=== PATIENT | male | born 1945 | race Caucasian/White ===

== ENCOUNTER 2018-06-30 14:40 | Inpatient (IN) | payer OTHER ==
[~2018-06-30] VITALS: Ht 172.7 cm; Wt 60.3 kg
[~2018-06-30 14:40] MED LIST: AMLO-147 PO; CLON-379 PO; PANT20TA2 PO
--- NOTE | 2018-06-30 16:13 | ERD ---
ER Documentation Chief Complaint Chief Complaint SOB HPI The patient is of 73-year-old male, presenting with acute dyspnea for the last week, worse today. He also complains of palpitation intermittently for the last month, denies syncope, near syncope, facial pain, neck pain, chest pain, abdominal pain, vomiting, complains of constipation and dysuria. He smokes, denies drinking Past medical history: CAD, hypertension Past surgical history: None ROS All systems reviewed and are negative except as per history of present illness. Medications Home Meds Reported Medications [id number] (Tribenzor) 40-10-25 Mg Tablet, 1 TAB PO DAILY, TAB 06/30/18 Discontinued Reported Medications Clonidine Hcl* (Clonidine Hcl*) 0.1 Mg Tab, 0.1 MG PO BID 03/16/11 Amlodipine Besylate* (Amlodipine Besylate*) 10 Mg Tablet, 10 MG PO DAILY 03/16/11 Pantoprazole* (Protonix*) 20 Mg Tablet.dr, 40 MG PO BID, 0 Refills 03/16/11 Allergies Allergies: Coded Allergies: No Known Drug Allergies (Verified Allergy, Unknown, 06/30/18) PMhx/Soc History of Surgery: No Anesthesia Reaction: No Hx Neurological Disorder: No Hx Respiratory Disorders: No Hx Cardiac Disorders: Yes (HYPERTENSION ) Hx Psychiatric Problems: No Hx Miscellaneous Medical Probl: No Hx Alcohol Use: No Hx Substance Use: No Hx Tobacco Use: No Physical Exam Vitals Vital Signs Date Temp Pulse Resp B/P (MAP) Pulse Ox O2 O2 Flow FiO2 Time Delivery Rate 06/30/18 122 20 131/104 94 Room Air 19:45 (113) 06/30/18 Nasal 18:35 Cannula 06/30/18 115 20 133/95 96 Room Air 17:07 (108) 06/30/18 98.1 61 18 183/101 95 14:46 (128) Physical Exam Const: No acute distress. Head: Atraumatic. Eyes: Normal Conjunctiva. ENT: Normal External Ears, Nose and Mouth. Neck: Full range of motion. No meningismus. Resp: Bibasilar crackle Cardio: Irregularly irregular tachy Abd: Soft, non distended, normal bowel sounds, non tender. Skin: No petechiae or rashes. Back: No midline or flank tenderness. Ext: No cyanosis, or edema. Neur: Awake and alert. No focal deficit Psych: Normal Mood and Affect. Result Diagram: 06/30/18 1639 06/30/18 1639 Results 24 hrs Laboratory Tests Test 06/30/18 16:39 06/30/18 19:20 White Blood Count 6.1 10^3/ul Red Blood Count 5.53 10^6/ul Hemoglobin 17.1 g/dl Hematocrit 51.5 % Mean Corpuscular Volume 93.1 fl Mean Corpuscular Hemoglobin 30.9 pg Mean Corpuscular Hemoglobin Concent 33.2 g/dl Red Cell Distribution Width 15.7 % Platelet Count 102 10^3/UL Mean Platelet Volume 12.4 fl Immature Granulocytes % 0.800 % Neutrophils % 73.3 % Lymphocytes % 17.7 % Monocytes % 7.9 % Eosinophils % 0.0 % Basophils % 0.3 % Nucleated Red Blood Cells % 0.3 /100WBC Immature Granulocytes # 0.050 10^3/ul Neutrophils # 4.5 10^3/ul Lymphocytes # 1.1 10^3/ul Monocytes # 0.5 10^3/ul Eosinophils # 0.0 10^3/ul Basophils # 0.0 10^3/ul Nucleated Red Blood Cells # 0.0 10^3/ul Prothrombin Time 15.2 Sec Prothrombin Time Ratio 1.2 INR International Normalized Ratio 1.19 Activated Partial Thromboplast Time 27.4 Sec D-Dimer 8518.92 ng/ml D-Dimer Comment Sodium Level 143 mmol/L Potassium Level 4.6 mmol/L Chloride Level 104 mmol/L Carbon Dioxide Level 26 mmol/L Anion Gap 13 Blood Urea Nitrogen 52 mg/dl Creatinine 1.32 mg/dl Est Glomerular Filtrat Rate mL/min mL/min Glucose Level 94 mg/dl Calcium Level 9.5 mg/dl Total Bilirubin 0.9 mg/dl Direct Bilirubin 0.00 mg/dl Indirect Bilirubin 0.9 mg/dl Aspartate Amino Transf (AST/SGOT) 138 IU/L Alanine Aminotransferase (ALT/SGPT) 49 IU/L Alkaline Phosphatase 2146 IU/L Troponin I 0.085 ng/ml B-Type Natriuretic Peptide 5670 PG/ML Total Protein 6.7 g/dl Albumin 3.9 g/dl Globulin 2.80 g/dl Albumin/Globulin Ratio 1.39 Thyroid Stimulating Hormone (TSH) 4.070 MIU/L Free Thyroxine Index 1.72 ug/ml Thyroxine (T4) 4.5 ug/dl Triiodothyronine (T3) Uptake 38.2 % Ethyl Alcohol Level < 10.0 mg/dl Urine Opiates Screen NEGATIVE Urine Barbiturates NEGATIVE Urine Amphetamines Screen NEGATIVE Urine Benzodiazepines Screen NEGATIVE Urine Cocaine Screen NEGATIVE Urine Cannabinoids NEGATIVE Current Medications Medications Dose Sig/Percy Start Time Status Last (Trade) Ordered Route PRN Stop Time Admin Dose Reason Admin Diltiazem 25 mg STK-MED 06/30/18 DC HCl ONCE .ROUTE 16:54 (Cardizem Iv) 06/30/18 16:55 Diltiazem 5 mg ONCE ONCE 06/30/18 DC 06/30/18 HCl IV 17:30 17:24 (Cardizem Iv) 06/30/18 17:31 Furosemide 40 mg ONCE ONCE 06/30/18 DC 06/30/18 (Lasix) IV 18:00 18:23 06/30/18 18:08 IV Flush 10 ml STK-MED 06/30/18 DC 06/30/18 (NS 10 ml) ONCE .ROUTE 17:52 18:23 06/30/18 17:53 Sodium 100 ml @ ud STK-MED 06/30/18 DC 06/30/18 Chloride ONCE .ROUTE 17:52 18:23 06/30/18 17:53 Iodixanol 100 ml STK-MED 06/30/18 DC 06/30/18 (Visipaque ONCE .ROUTE 17:52 18:24 Locm) 06/30/18 17:53 Diltiazem 10 mg ONCE ONCE 06/30/18 DC 06/30/18 HCl IV 19:00 18:50 (Cardizem Iv) 06/30/18 19:01 Digoxin 250 mcg ONCE ONCE 06/30/18 DC 06/30/18 (Digoxin) IV 19:00 19:16 06/30/18 19:08 Diltiazem 5 mg ONCE ONCE 06/30/18 DC 06/30/18 HCl IV 20:00 19:50 (Cardizem Iv) 06/30/18 20:01 Digoxin 250 mcg ONCE ONCE 06/30/18 DC 06/30/18 (Digoxin) IV 20:00 20:08 06/30/18 20:01 Diltiazem 30 mg Q6 PO 07/01/18 UNV HCl 00:00 (Cardizem) Metoprolol 5 mg Q6H PRN 06/30/18 UNV Tartrate IV 20:00 (Lopressor) TACHYARDIA Enoxaparin 70 mg Q12 SC 06/30/18 DC Sodium 21:00 (Lovenox) 06/30/18 21:00 Enoxaparin 40 mg DAILY SC 07/01/18 UNV Sodium 09:00 (Lovenox) Sodium 1,000 ml @ [id number] IV 06/30/18 UNV Chloride 75 mls/hr 19:58 IV Flush 3 ml PER 06/30/18 UNV (NS 3 ml) PROTOCOL IV 20:00 Ondansetron 4 mg Q6H PRN 06/30/18 UNV HCl (Zofran IV NAUSEA 20:00 Inj) AND/OR VOMITING 1 tab Q5M PRN 06/30/18 UNV Nitroglycerin SL CHEST 20:00 PAIN (Nitroglyceri n (Sl Tab) 0.4 Mg) 650 mg Q6H PRN 06/30/18 UNV Acetaminophen PO PAIN 20:00 (Tylenol LEVEL 1-3 OR Tab) FEVER Morphine 2 mg Q4H PRN 06/30/18 UNV Sulfate IV PAIN 20:00 (morphine) LEVEL 7-10 Docusate 100 mg Q12H PRN 06/30/18 UNV Sodium PO 20:00 (Colace) CONSTIPATION Magnesium 30 ml DAILY PRN 06/30/18 UNV Hydroxide PO 20:00 (Milk Of Mag) CONSTIPATION Bisacodyl 10 mg DAILY PRN 06/30/18 UNV (Dulcolax ND 20:00 Supp) CONSTIPATION Procedures/[place] [id number] Radiology Main Line: [phone] DIAGNOSTIC IMAGING REPORT Patient: ASHLYN ARAUJO : 1945 Age: 73 Sex: M [id number] DOS: 06/30/18 1734 Ordering MD: KOSTA CHRISTIANSON MD Location: E/R Room/Bed: PROCEDURE: CT brain without contrast CLINICAL INDICATION: Headaches following a fall TECHNIQUE: A CT of the brain was performed utilizing axial sections from the skull base through the vertex without contrast. Sagittal and coronal images were also reformatted. DICOM images are available. One or more of the following dose reduction techniques were used: Automated exposure control, adjustment of the mA and/or kV according to patient size, use of iterative reconstruction technique. The exam CTDIvol = 38.46 mGy and DLP = 634.23 mGy-cm. COMPARISON: None available FINDINGS: No acute intracranial hemorrhage is identified. There is no mass effect or midline shift. No extra-axial fluid collection is seen. The ventricles and sulci are larger in size and configuration for the patient's provided age of 73 years consistent with advanced generalized atrophy. Low attenuation of the subcortical and periventricular white matter is nonspecific but most likely body former jose small vessel ischemic disease. Ramos-white differentiation is preserved with no findings to suggest an acute ischemic infarct. The fourth ventricle is midline and there is no density alteration within the liza or cerebellum. The osseous structures are unremarkable. The mastoid air cells and visualized paranasal sinuses are clear. Atherosclerotic calcification of the cavernous internal carotid arteries is present. Metallic densities adjacent to the right zygoma and right lateral orbit are likely shrapnel from a remote injury RPTAT:HJJR IMPRESSION: 1. Advanced atrophy for the patient's provided age without evidence for acute intracranial abnormality or mass effect. 2. Metallic shrapnel foreign bodies lateral to the right orbit adjacent to the zygoma. 3. Cavernous internal carotid artery atherosclerotic calcification. Physician Skyler Date Time Electronically viewed and signed by Physician Skyler on 06/30/2018 18:18 JR/ CC: KOSTA CHRISTIANSON MD [id number] [place] [id number] Radiology Main Line: [phone] DIAGNOSTIC IMAGING REPORT Patient: ASHLYN ARAUJO : 1945 Age: 73 Sex: M MR #: [id number] DOS: 06/30/18 1627 Ordering MD: KOSTA CHRISTIANSON MD Location: E/R Room/Bed: PROCEDURE: XR Chest. CLINICAL INDICATION: Shortness of breath TECHNIQUE: Portable single view of the chest COMPARISON: None. FINDINGS: Enlarged cardiopericardial silhouette. Atherosclerotic change of the aorta. Slight prominence of the paratracheal soft tissues which may be due to ectatic vasculature. No definite acute infiltrate, pleural effusion, or overt congestive heart failure. No slight rightward scoliosis which may in part be positional.. IMPRESSION: Enlarged cardiopericardial silhouette and atherosclerotic change of the aorta.. RPTAT: HLBE Physician Aura Date Time Electronically viewed and signed by Ignacia Mratin Physician on 06/30/2018 17:22 LE/ CC: KOSTA CHRISTIANSON MD [id number] [place] [id number] Radiology Main Line: [phone] DIAGNOSTIC IMAGING REPORT Patient: ASHLYN ARAUJO : 1945 Age: 73 Sex: M [id number] DOS: 06/30/18 0000 Ordering MD: KOSTA CHRISTIANSON MD Location: E/R Room/Bed: PROCEDURE: CT angiogram chest CLINICAL INDICATION: Shortness of breath TECHNIQUE: Transaxial slices were obtained throughout the chest with IV contrast and CT chest angiogram was obtained. Additional sagittal and coronal MPR images were obtained.. 3-D images were obtained. One of more of the following dose reduction techniques were utilized: -automatic exposure control.- adjustment of the mA and/or kV according to patient size. -Use of iterative reconstruction technique.DICOM images available Contrast: 80 cc Visipaque 320 Radiation Dose: CTDI is 10.77 mGy. DLP is 413.51 mGy-cm. COMPARISON: Chest one-view FINDINGS: Normal opacification of the mediastinal structures is seen and no intraluminal filling defects is noted in the pulmonary arterial tree up to 3rd order branches to suggest pulmonary embolism. Degenerate changes noted in the lower cervical spine. Cardiomegaly, enlarged distal ascending aorta measuring 4.7 cm consistent with aneurysm. Coronary artery calcifications are seen. Small retrocardiac hiatal hernia noted. Degenerative changes noted in the lower dorsal spine. T11 compression fracture is noted. No significant mediastinal adenopathy seen. Lung windows demonstrate symmetric lung volumes. Dilated bronchi to the lower lobes are seen. No subpleural blebs, pneumothorax or pleural effusion noted. No endobronchial lesions seen. No displaced rib fracture noted. CT abdomen: Liver demonstrates low density lesion near the dome suggestive of cyst. Engorged hepatic veins are seen. Nondistended stomach, normal spleen, calcified suprarenal abdominal aorta is noted. Abnormal increased density to the thoracolumbar spine IMPRESSION: No evidence of pulmonary embolism noted. Ascending aortic aneurysm. Enlarged main pulmonary artery suggestive of arterial hypertension. Cardiomegaly is seen without pericardial or pleural effusion. Cannot rule out underlying heart failure. Abnormal patchy density to the thoracolumbar spine suspicious for metabolic or metastatic etiology. Underlying degenerative changes with T11 compression fracture also seen. RPTAT:AAOO Physician Roscoe Date Time Electronically viewed and signed by Physician Roscoe on 06/30/2018 18:38 MB/ CC: KOSTA CHRISTIANSON MD [id number] EKG: Read by emergency physician Rate/Rhythm: Atrial Fibrillation 128 beats/min QRS, ST, T-waves: No ST elevation, no T inversion, PVC, LAFB Impression: Abnormal EKG MEDICAL MAKING DECISION: The patient is a 73-year-old male, presenting with acute new onset atrial fibrillation, acute CHF exacerbation, ascending aortic aneurysm, possible metastatic disease. He was treated with Cardizem 10 mg IV x2, digoxin 0.25 mg IV x2 acute new onset atrial fibrillation with RVR, Lasix 40 mg IV for acute CHF with good response. The differential diagnoses considered include but are not limited to asthma, COPD, pneumonia, pulmonary embolus, pleural effusion, congestive heart failure, cardiac arrhythmia. Critical Care: Time: 35 minutes excluding all billable procedures. Treatments/Evaluations: Close monitoring and treatment of unstable vital signs, cardiorespiratory, and neurologic status, while maintaining tight balance of fluid, respiratory, and cardiac interventions. Departure Diagnosis: Primary Impression: New onset atrial fibrillation Additional Impressions: CHF (congestive heart failure) Abdominal aortic aneurysm Ascending aortic aneurysm Thrombocytopenia Condition: Serious Comments I discussed the findings with the patient. I discussed the patient with the hospitalist Dr Daugherty at 6:15 pm. who was made aware of the lab, the treatment, the patient condition. The patient is admitted to [facility] Disclaimer: Inadvertent spelling and grammatical errors are likely due to EHR/dictation software use and do not reflect on the overall quality of patient care. Also, please note that the electronic time recorded on this note does not necessarily reflect the actual time of the patient encounter. KOSTA CHRISTIANSON MD Jun 30, 2018 16:13
[2018-06-30] MEDS ORDERED: DILTIAZEM 25 MG INJ ONE (16:54)
[2018-06-30] MEDS ORDERED: OLME1TAB37 PO (17:04)
[2018-06-30] MEDS ORDERED: DILTIAZEM 25 MG INJ IV ONE ×3 (17:30→20:00)
[2018-06-30] MEDS ORDERED: SOD CHLORIDE 0.9% 100 ML ONE (17:52)
[2018-06-30] MEDS ORDERED: IODIXANOL LOCM 100 ML BTL ONE (17:52)
[2018-06-30] MEDS ORDERED: FUROSEMIDE 40 MG INJ IV ONE (18:00)
--- NOTE | 2018-06-30 18:24 | NUR ---
Procedure Ordered: CHEST ANGIO Reason for Exam Today: SOB Previous Exams: Allergies:NKA Current Medications Taken: Glucophage ( ) Metformin ( ) Previous reaction to contrast media: Yes ( ) No ( ) : Yes ( ) No ( X) Asthma: Yes ( ) No (X ) Diabetes: Yes ( ) No (X ) Myeloma: Yes ( ) No (X ) Heart Disease: Yes (X ) No ( ) Cardiac Disease: Yes (X ) No ( ) Kidney Disease: Yes ( ) No (X ) Vascular Disease: Yes ( ) No (X ) Patient Teaching done: Yes (X ) No ( ) Payroll Accounting Specialist Used: Yes ( ) No ( ) Name of Payroll Accounting Specialist: Language Used: As part of the test requested by your doctor, contrast media may be injected into your vein while the x-rays are being taken. Occasionally, reactions from IV contrast may occur. The physician and staff of this hospital are trained to treat these reactions. Select the type of Contrast that will be given to patient: Isovue 300 ( ) Isovue 370 ( ) Visipaque ( X) Cystografin ( ) Gastrographin ( ) Redi-cat ( ) Volumen ( ) Amount of contrast to be given: 90ML IV (X ) PO ( ) Date given: 06/30/18 Lab Values: BUN: 52 Creatinine: 1.32 Reason why contrast cannot be given: Location of patient pre-procedure: ER 7 Location of patient post procedure: ER 7
[2018-06-30] MEDS ORDERED: DIGOXIN 500 MCG INJ IV ONE ×2 (19:00→20:00)
[2018-06-30] MEDS ORDERED: SOD CHLORIDE 0.9% 1,000 ML IV SCH (19:58)
[2018-06-30] MEDS ORDERED: NITROGLYCERIN (SL) 0.4 MG TAB SL PRN (20:00)
[2018-06-30] MEDS ORDERED: MAGNESIUM HYDROXIDE 30ML CUP PO PRN (20:00)
[2018-06-30] MEDS ORDERED: morphine 2 MG INJ IV PRN (20:00)
[2018-06-30] MEDS ORDERED: NACL 0.9% 3 ML SYG IV SCH (20:00)
[2018-06-30] MEDS ORDERED: ONDANSETRON 4 MG INJ IV PRN (20:00)
[2018-06-30] MEDS ORDERED: BISACODYL 10 MG SUPP PR PRN (20:00)
[2018-06-30] MEDS ORDERED: ACETAMINOPHEN 325 MG TAB PO PRN (20:00)
[2018-06-30] MEDS ORDERED: DOCUSATE SODIUM 100 MG CAP PO PRN (20:00)
[2018-06-30] MEDS ORDERED: ENOXAPARIN 100 MG/ML SYG SC SCH (21:00)
[2018-07-01] VITALS (15 sets, daily range): BP systolic 90–137; BP diastolic 57–99; PULSE 58–114; RESP 16–18; Ht 172.7 cm; Wt 60.3 kg
[2018-07-01] MEDS: METOPROLOL 5 MG INJ IV PRN (00:22)
[2018-07-01] MEDS: DILTIAZEM 30 MG TAB PO SCH ×3 (02:24→11:23)
--- NOTE | 2018-07-01 02:25 | NUR ---
Pt admitted from ER, a/a/ox4, VS stable, afebrile.Afib in monitor. skin intact with scab on B legs. Medication Cardizem scheduled given late , pt arrived in the floor after midnight. Make pt comfortable and all needs attended. Continue care plan.
[2018-07-01] MEDS ORDERED: ENOXAPARIN 40 MG/0.4 ML SYG SC SCH (09:00)
--- NOTE | 2018-07-01 11:17 | HP ---
Date/Time of Note Date/Time of Note DATE: 07/01/18 TIME: 11:16 Assessment/Plan VTE Prophylaxis Risk score (from Ns)>0 risk: 4 SCD applied (from Ns): Yes Pharmacological prophylaxis: LMWH Lines/Catheters IV Catheter Type (from [facility] Saline Lock Urinary Cath still in place: No Assessment/Plan Assessment/Plan 73-year-old male with: 1. Syncopal episode, likely related to arrhythmia and atrial fibrillation. CT head negative. No neurological deficit. Cardiac workup ongoing, heart rate control, cardiology consulted. Hemodynamically stable. Will check orthostatics. 2. Atrial fibrillation, new onset, episodes of rapid ventricular rate. TFTs within normal limits. Heart rate slightly better controlled, on Cardizem p.o. along with Lopressor IV as needed. 2D echocardiogram pending, cardiology consult pending. Hemodynamically stable. 3. Positive troponin today, in setting of episodes of tachyarrhythmia, no previous diagnosis of coronary artery disease as far as we know. Aspirin 325 mg p.o. x1 now then 81 mg p.o. daily. Trending troponins, check fasting lipid panel 2D echocardiogram pending Further recommendations per cardiology. 4. Hypertension: Currently on Cardizem given atrial fibrillation, will titrate medications as needed for also blood pressure control. 5. Renal insufficiency, acute kidney injury versus CKD, unclear. Patient on gentle IV fluid hydration especially with a CT angiogram chest done yesterday. Monitor renal function and electrolytes. 6. Ascending aortic aneurysm, incidental finding, 4.7 cm, needs surveillance and monitoring, next CT angiogram due in 6 months to assess if stable size versus increasing size. For now no further intervention, discussed with cardiology. 7. Tobacco use, patient agreeable to quit, will order for nicotine patch. 8. T11 compression fracture, old, incidental finding. Patient stable. No signs of adenopathy seen or pulmonary masses seen. Prophylaxis: Lovenox for DVT prophylaxis, patient tolerating p.o. Disposition: Heart rate control, 2D echocardiogram results, evaluating for acute coronary syndrome given troponin trending up. Result Diagram: 07/01/18 0744 07/01/18 0747 Results 24hrs Laboratory Tests Test 06/30/18 16:39 06/30/18 19:20 06/30/18 23:00 07/01/18 07:44 White Blood Count 6.1 6.7 Red Blood Count 5.53 5.69 Hemoglobin 17.1 17.8 Hematocrit 51.5 52.5 H Mean Corpuscular 93.1 92.3 Volume Mean Corpuscular 30.9 31.3 Hemoglobin Mean Corpuscular 33.2 33.9 Hemoglobin Concent Red Cell 15.7 H 16.5 H Distribution Width Platelet Count 102 L 95 L Mean Platelet Volume 12.4 H 12.6 H Immature 0.800 H 1.600 H Granulocytes % Neutrophils % 73.3 72.3 Lymphocytes % 17.7 17.1 Monocytes % 7.9 8.5 Eosinophils % 0.0 0.1 Basophils % 0.3 0.4 Nucleated Red Blood 0.3 H 0.9 H Cells % Immature 0.050 H 0.110 H Granulocytes # Neutrophils # 4.5 4.9 Lymphocytes # 1.1 1.2 Monocytes # 0.5 0.6 Eosinophils # 0.0 0.0 Basophils # 0.0 0.0 Nucleated Red Blood 0.0 0.1 H Cells # Prothrombin Time 15.2 H Prothrombin Time 1.2 Ratio INR International 1.19 Normalized Ratio Activated 27.4 Partial Thromboplast Time D-Dimer 8518.92 H D-Dimer Comment Sodium Level 143 Potassium Level 4.6 Chloride Level 104 Carbon Dioxide Level 26 Anion Gap 13 Blood Urea Nitrogen 52 H Creatinine 1.32 H Est Glomerular Filtrat Rate mL/min Glucose Level 94 Calcium Level 9.5 Total Bilirubin 0.9 Direct Bilirubin 0.00 Indirect Bilirubin 0.9 Aspartate Amino 138 H Transf (AST/SGOT) Alanine 49 Aminotransferase (AL T/SGPT) Alkaline Phosphatase 2146 H Troponin I 0.085 0.090 B-Type Natriuretic 5670 H Peptide Total Protein 6.7 Albumin 3.9 Globulin 2.80 Albumin/Globulin 1.39 Ratio Thyroid Stimulating 4.070 Hormone (TSH) Free Thyroxine Index 1.72 Thyroxine (T4) 4.5 L Triiodothyronine 38.2 (T3) Uptake Ethyl Alcohol Level < 10.0 H Urine Opiates Screen NEGATIVE Urine Barbiturates NEGATIVE Urine Amphetamines NEGATIVE Screen Urine NEGATIVE Benzodiazepines Screen Urine Cocaine Screen NEGATIVE Urine Cannabinoids NEGATIVE Creatine Kinase 1570 H Creatine Kinase 2.9 Index Creatinine Kinase MB 45.30 H (Mass) Test 07/01/18 07:47 Sodium Level 144 Potassium Level 4.1 Chloride Level 103 Carbon Dioxide Level 27 Anion Gap 14 H Blood Urea Nitrogen 49 H Creatinine 1.25 H Est Glomerular Filtrat Rate mL/min Glucose Level 68 #L Calcium Level 9.0 Magnesium Level 2.1 Total Bilirubin 1.0 Direct Bilirubin 0.00 Indirect Bilirubin 1.0 Aspartate Amino 181 H Transf (AST/SGOT) Alanine 20 Aminotransferase (AL T/SGPT) Alkaline Phosphatase 2067 H Creatine Kinase 1496 H Creatine Kinase 2.7 Index Creatinine Kinase MB 39.90 H (Mass) Troponin I 0.123 *H Total Protein 6.5 Albumin 3.7 Globulin 2.80 Albumin/Globulin 1.32 Ratio Triglycerides Level 173 H Cholesterol Level 160 LDL Cholesterol, 88 Calculated HDL Cholesterol 37 Cholesterol/HDL 4.3 Ratio HPI/ROS Admit Date/Time Admit Date/Time Jun 30, 2018 at 18:59 Hx of Present Illness Chief complaint: Syncopal episode, shortness of breath. 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 The patient does have hypertension and is compliant with current medications which is amlodipine/HCTZ combination medication. He denies any chest pains, he denies feeling any palpitations. He does not remember the syncopal episode yesterday but does remember being at work when it happened. He denies any nausea, vomiting, diaphoresis. He does report again dyspnea on exertion and decreased exercise tolerance to a point where he cannot go more than 2 blocks without stopping for rest, this has been going on for the past 3 months. He is compliant with a follow-up with his primary care physician. He denies any previous history of cardiac disease or cardiac arrhythmia. He denies any previous history of renal disease or pulmonary disease. He had an incidental finding of 4.7 cm ascending aortic aneurysm, he is not aware of this. In the emergency department he was evaluated found to be in atrial ablation/atrial flutter with varying heart rate up to 150, CT angiogram was done which is negative for pulmonary embolus but did show incidentally a ascending aortic aneurysm. Patient was admitted to telemetry for new onset atrial fibrillation and syncopal episode. Cardiology is consulted. This morning, his third troponin is positive, EKG is unchanged with atrial fibrillation and the patient denies any chest pain. Cardiac enzymes are being trended. Patient denies any previous episodes of syncope. Patient is a current heavy smoker. ROS Constitutional: fatigue Eyes: no complaints ENT: no complaints Respiratory: shortness of breath (On exertion) Cardiovascular: other (Syncopal episode) Gastrointestinal: no complaints Genitourinary: no complaints Musculoskeletal: no complaints, swelling (Lower extremities on and off) Skin: no complaints Neurologic: no complaints Lymphatic: no complaints Immunologic: no complaints PMH/Family/Social Past Medical History Medical History: hypertension Medications Current Medications Diltiazem HCl (Cardizem) 30 mg Q6 PO Last administered on 07/01/18at 06:17; Admin Dose 30 MG; Start 07/01/18 at 00:00 Metoprolol Tartrate (Lopressor) 5 mg Q6H PRN IV TACHYARDIA Last administered on 07/01/18at 00:22; Admin Dose 5 MG; Start 06/30/18 at 20:00 Enoxaparin Sodium (Lovenox) 40 mg DAILY SC Last administered on 07/01/18at 08:32; Admin Dose 40 MG; Start 07/01/18 at 09:00 IV Flush (NS 3 ml) 3 ml PER PROTOCOL IV ; Start 06/30/18 at 20:00 Ondansetron HCl (Zofran Inj) 4 mg Q6H PRN IV NAUSEA AND/OR VOMITING; Start 06/30/18 at 20:00 Nitroglycerin (Nitroglycerin (Sl Tab) 0.4 Mg) 1 tab Q5M PRN SL CHEST PAIN; Start 06/30/18 at 20:00 Acetaminophen (Tylenol Tab) 650 mg Q6H PRN PO PAIN LEVEL 1-3 OR FEVER; Start 06/30/18 at 20:00 Morphine Sulfate (morphine) 2 mg Q4H PRN IV PAIN LEVEL 7-10; Start 06/30/18 at 20:00 Docusate Sodium (Colace) 100 mg Q12H PRN PO CONSTIPATION; Start 06/30/18 at 20:00 Magnesium Hydroxide (Milk Of Mag) 30 ml DAILY PRN PO CONSTIPATION; Start 06/30/18 at 20:00 Bisacodyl (Dulcolax Supp) 10 mg DAILY PRN [place] CONSTIPATION; Start 06/30/18 at 20:00 Influenza Virus Vaccine Quadrival (Fluzone) 0.5 ml ONCE ONCE IM* ; Start 06/16 01/01 at 10:00; Stop 07/02/18 at 10:01 Coded Allergies: No Known Drug Allergies (Verified Allergy, Unknown, 06/30/18) Past Surgical History Past Surgical Hx: no surgical history Family History Significant Family History: no pertinent family hx Social History Alcohol Use: none Smoking Status: Current some day smoker (1 pack a day for the past 4 years) Drug Use: none Exam/Review of Systems Vital Signs Vitals Vital Signs Date Temp Pulse Resp B/P (MAP) Pulse Ox O2 O2 Flow FiO2 Time Delivery Rate 07/01/18 97 08:49 07/01/18 Nasal 2.0 08:00 Cannula 07/01/18 97.9 18 135/68 96 07:51 (90) Intake and Output 06/30/18 06/30/18 07/01/18 1515:00 23:00 07:00 IntakeIntake Total 300 ml OutputOutput Total 200 ml BalanceBalance 100 ml Exam Constitutional: alert, oriented, well developed Psych: no complaints, nl mood/affect Respiratory: clear to auscultation, normal air movement Cardiovascular: nl pulses, irregular rhythm (Atrial fibrillation with varying rate, occasional RVR up to 150 bpm) Gastrointestinal: soft, non-tender Musculoskeletal: nl extremities to inspection, nl gait and stance Extremities: normal pulses Neurological: TAIL SAWYER II-XII intact, nl mental status, nl speech, nl strength Additional Comments EKG on admission, atrial fibrillation with RVR up to 150 bpm. EKG this morning, controlled A. fib 77 bpm. Telemetry patient remains mostly controlled however occasional episodes of RVR up to 150 bpm PROCEDURE: CT angiogram chest CLINICAL INDICATION: Shortness of breath TECHNIQUE: Transaxial slices were obtained throughout the chest with IV contrast and CT chest angiogram was obtained. Additional sagittal and coronal MPR images were obtained.. 3-D images were obtained. One of more of the following dose reduction techniques were utilized: -automatic exposure control.- adjustment of the mA and/or kV according to patient size. -Use of iterative reconstruction technique.DICOM images available Contrast: 80 cc Visipaque 320 Radiation Dose: CTDI is 10.77 mGy. DLP is 413.51 mGy-cm. COMPARISON: Chest one-view FINDINGS: Normal opacification of the mediastinal structures is seen and no intraluminal filling defects is noted in the pulmonary arterial tree up to 3rd order branches to suggest pulmonary embolism. Degenerate changes noted in the lower cervical spine. Cardiomegaly, enlarged distal ascending aorta measuring 4.7 cm consistent with aneurysm. Coronary artery calcifications are seen. Small retrocardiac hiatal hernia noted. Degenerative changes noted in the lower dorsal spine. T11 compression fracture is noted. No significant mediastinal adenopathy seen. Lung windows demonstrate symmetric lung volumes. Dilated bronchi to the lower lobes are seen. No subpleural blebs, pneumothorax or pleural effusion noted. No endobronchial lesions seen. No displaced rib fracture noted. CT abdomen: Liver demonstrates low density lesion near the dome suggestive of cyst. Engorged hepatic veins are seen. Nondistended stomach, normal spleen, calcified suprarenal abdominal aorta is noted. Abnormal increased density to the thoracolumbar spine IMPRESSION: No evidence of pulmonary embolism noted. Ascending aortic aneurysm. Enlarged main pulmonary artery suggestive of arterial hypertension. Cardiomegaly is seen without pericardial or pleural effusion. Cannot rule out underlying heart failure. Abnormal patchy density to the thoracolumbar spine suspicious for metabolic or metastatic etiology. Underlying degenerative changes with T11 compression fracture also seen. RPTAT:AAOO Physician Roscoe Date Time Electronically viewed and signed by Physician Roscoe on 06/30/2018 18:38 MB/ PROCEDURE: XR Chest. CLINICAL INDICATION: Shortness of breath TECHNIQUE: Portable single view of the chest COMPARISON: None. FINDINGS: Enlarged cardiopericardial silhouette. Atherosclerotic change of the aorta. Slight prominence of the paratracheal soft tissues which may be due to ectatic vasculature. No definite acute infiltrate, pleural effusion, or overt congestive heart failure. No slight rightward scoliosis which may in part be positional.. IMPRESSION: Enlarged cardiopericardial silhouette and atherosclerotic change of the aorta.. RPTAT: HLBE Ignacia Martin, Physician Date Time Electronically viewed and signed by Ignacia Martin Physician on 06/30/2018 17:22 LE/ PROCEDURE: CT brain without contrast CLINICAL INDICATION: Headaches following a fall TECHNIQUE: A CT of the brain was performed utilizing axial sections from the skull base through the vertex without contrast. Sagittal and coronal images were also reformatted. DICOM images are available. One or more of the following dose reduction techniques were used: Automated exposure control, adjustment of the mA and/or kV according to patient size, use of iterative reconstruction technique. The exam CTDIvol = 38.46 mGy and DLP = 634.23 mGy-cm. COMPARISON: None available FINDINGS: No acute intracranial hemorrhage is identified. There is no mass effect or midline shift. No extra-axial fluid collection is seen. The ventricles and sulci are larger in size and configuration for the patient's provided age of 73 years consistent with advanced generalized atrophy. Low attenuation of the subcortical and periventricular white matter is nonspecific but most likely chronic small vessel ischemic disease. Ramos-white differentiation is preserved with no findings to suggest an acute ischemic infarct. The fourth ventricle is midline and there is no density alteration within the liza or cerebellum. The osseous structures are unremarkable. The mastoid air cells and visualized paranasal sinuses are clear. Atherosclerotic calcification of the cavernous internal carotid arteries is present. Metallic densities adjacent to the right zygoma and right lateral orbit are likely shrapnel from a remote injury RPTAT:HJJR IMPRESSION: 1. Advanced atrophy for the patient's provided age without evidence for acute intracranial abnormality or mass effect. 2. Metallic shrapnel foreign bodies lateral to the right orbit adjacent to the zygoma. 3. Cavernous internal carotid artery atherosclerotic calcification. Physician Skyler Date Time Electronically viewed and signed by Physician Skyler on 06/30/2018 18:18 / JUA NCARLOS WHEAT Jul 01, 2018 11:16
[2018-07-01] MEDS ORDERED: ASPIRIN (EC) 325 MG TAB PO ONE (12:00)
--- NOTE | 2018-07-01 12:17 | CONS ---
Date/Time of Note Date/Time of Note DATE: 07/01/18 TIME: 12:13 Assessment/Plan Assessment/Plan Assessment/Plan Newly diagnosed atrial fibrillation Acute decompensated congestive heart failure Renal dysfunction Hypertension -Patient with newly diagnosed atrial fibrillation. We will start the patient on beta-noel, check echocardiogram. Start anticoagulation. -Troponins are mildly elevated, would follow trend and based on results, would decide on further ischemic workup. -Continue aspirin therapy, no statin at the current time given abnormal LFTs. Result Diagram: 07/01/18 0744 07/01/18 0747 Results 24hrs Laboratory Tests Test 06/30/18 16:39 06/30/18 19:20 06/30/18 23:00 07/01/18 07:44 White Blood Count 6.1 6.7 Red Blood Count 5.53 5.69 Hemoglobin 17.1 17.8 Hematocrit 51.5 52.5 H Mean Corpuscular 93.1 92.3 Volume Mean Corpuscular 30.9 31.3 Hemoglobin Mean Corpuscular 33.2 33.9 Hemoglobin Concent Red Cell 15.7 H 16.5 H Distribution Width Platelet Count 102 L 95 L Mean Platelet Volume 12.4 H 12.6 H Immature 0.800 H 1.600 H Granulocytes % Neutrophils % 73.3 72.3 Lymphocytes % 17.7 17.1 Monocytes % 7.9 8.5 Eosinophils % 0.0 0.1 Basophils % 0.3 0.4 Nucleated Red Blood 0.3 H 0.9 H Cells % Immature 0.050 H 0.110 H Granulocytes # Neutrophils # 4.5 4.9 Lymphocytes # 1.1 1.2 Monocytes # 0.5 0.6 Eosinophils # 0.0 0.0 Basophils # 0.0 0.0 Nucleated Red Blood 0.0 0.1 H Cells # Prothrombin Time 15.2 H Prothrombin Time 1.2 Ratio INR International 1.19 Normalized Ratio Activated 27.4 Partial Thromboplast Time D-Dimer 8518.92 H D-Dimer Comment Sodium Level 143 Potassium Level 4.6 Chloride Level 104 Carbon Dioxide Level 26 Anion Gap 13 Blood Urea Nitrogen 52 H Creatinine 1.32 H Est Glomerular Filtrat Rate mL/min Glucose Level 94 Calcium Level 9.5 Total Bilirubin 0.9 Direct Bilirubin 0.00 Indirect Bilirubin 0.9 Aspartate Amino 138 H Transf (AST/SGOT) Alanine 49 Aminotransferase (AL T/SGPT) Alkaline Phosphatase 2146 H Troponin I 0.085 0.090 B-Type Natriuretic 5670 H Peptide Total Protein 6.7 Albumin 3.9 Globulin 2.80 Albumin/Globulin 1.39 Ratio Thyroid Stimulating 4.070 Hormone (TSH) Free Thyroxine Index 1.72 Thyroxine (T4) 4.5 L Triiodothyronine 38.2 (T3) Uptake Ethyl Alcohol Level < 10.0 H Urine Opiates Screen NEGATIVE Urine Barbiturates NEGATIVE Urine Amphetamines NEGATIVE Screen Urine NEGATIVE Benzodiazepines Screen Urine Cocaine Screen NEGATIVE Urine Cannabinoids NEGATIVE Creatine Kinase 1570 H Creatine Kinase 2.9 Index Creatinine Kinase MB 45.30 H (Mass) Test 07/01/18 07:47 Sodium Level 144 Potassium Level 4.1 Chloride Level 103 Carbon Dioxide Level 27 Anion Gap 14 H Blood Urea Nitrogen 49 H Creatinine 1.25 H Est Glomerular Filtrat Rate mL/min Glucose Level 68 #L Calcium Level 9.0 Magnesium Level 2.1 Total Bilirubin 1.0 Direct Bilirubin 0.00 Indirect Bilirubin 1.0 Aspartate Amino 181 H Transf (AST/SGOT) Alanine 20 Aminotransferase (AL T/SGPT) Alkaline Phosphatase 2067 H Creatine Kinase 1496 H Creatine Kinase 2.7 Index Creatinine Kinase MB 39.90 H (Mass) Troponin I 0.123 *H Total Protein 6.5 Albumin 3.7 Globulin 2.80 Albumin/Globulin 1.32 Ratio Triglycerides Level 173 H Cholesterol Level 160 LDL Cholesterol, 88 Calculated HDL Cholesterol 37 Cholesterol/HDL 4.3 Ratio Consultation Date/Type/Reason Admit Date/Time Jun 30, 2018 at 18:59 Type of Consult cv Reason for Consultation Atrial fibrillation and shortness of breath Hx of Present Illness This is a 73-year-old male past medical history of hypertension who presents wi th multiple complaints. Is been having progressive shortness of breath off and on over the past 3 months. She has been having lower extremity edema off and on for the past 6 months. There is a possible episode of syncope yesterday. Patient is unsure if he just became dizzy or if he lost consciousness. He denies any chest pain at rest or with exertion. He does get shortness of breath with lying down flat. He is feeling better now. 12 point review of systems was performed with all pertinent positives and negatives mentioned above and all else is negative Past Medical History Medical History: hypertension Medications Current Medications Diltiazem HCl (Cardizem) 30 mg Q6 PO Last administered on 07/01/18at 11:23; Admin Dose 30 MG; Start 07/01/18 at 00:00 Metoprolol Tartrate (Lopressor) 5 mg Q6H PRN IV TACHYARDIA Last administered on 07/01/18at 00:22; Admin Dose 5 MG; Start 06/30/18 at 20:00 Enoxaparin Sodium (Lovenox) 40 mg DAILY SC Last administered on 07/01/18at 08:32; Admin Dose 40 MG; Start 07/01/18 at 09:00 IV Flush (NS 3 ml) 3 ml PER PROTOCOL IV ; Start 06/30/18 at 20:00 Ondansetron HCl (Zofran Inj) 4 mg Q6H PRN IV NAUSEA AND/OR VOMITING; Start 06/30/18 at 20:00 Nitroglycerin (Nitroglycerin (Sl Tab) 0.4 Mg) 1 tab Q5M PRN SL CHEST PAIN; Start 06/30/18 at 20:00 Acetaminophen (Tylenol Tab) 650 mg Q6H PRN PO PAIN LEVEL 1-3 OR FEVER; Start 06/30/18 at 20:00 Morphine Sulfate (morphine) 2 mg Q4H PRN IV PAIN LEVEL 7-10; Start 06/30/18 at 20:00 Docusate Sodium (Colace) 100 mg Q12H PRN PO CONSTIPATION; Start 06/30/18 at 20:00 Magnesium Hydroxide (Milk Of Mag) 30 ml DAILY PRN PO CONSTIPATION; Start 06/30/18 at 20:00 Bisacodyl (Dulcolax Supp) 10 mg DAILY PRN [place] CONSTIPATION; Start 06/30/18 at 20:00 Influenza Virus Vaccine Quadrival (Fluzone) 0.5 ml ONCE ONCE IM* ; Start 07/02/18 at 10:00; Stop 07/02/18 at 10:01 Aspirin (Ecotrin) 325 mg ONCE ONCE PO ; Start 07/01/18 at 12:00; Stop 07/01/18 at 12:01 Aspirin (Halfprin) 81 mg DAILY PO ; Start 07/02/18 at 09:00 Nicotine (Nicoderm 21 Mg/ 24hr) 1 patch DAILY TRANSDERM ; Start 07/01/18 at 13:00 Allergies: Coded Allergies: No Known Drug Allergies (Verified Allergy, Unknown, 06/30/18) Past Surgical History Past Surgical Hx: no surgical history Family History Significant Family History: no pertinent family hx Social History Alcohol Use: none Smoking Status: Current some day smoker (1 pack a day for the past 4 years) Drug Use: none Exam/Review of Systems Vital Signs Vitals Vital Signs Date Temp Pulse Resp B/P (MAP) Pulse Ox O2 O2 Flow FiO2 Time Delivery Rate 07/01/18 97.9 71 17 108/61 96 11:25 (77) 07/01/18 Nasal 2.0 08:00 Cannula Intake and Output 06/30/18 06/30/18 07/01/18 1515:00 23:00 07:00 IntakeIntake Total 300 ml OutputOutput Total 200 ml BalanceBalance 100 ml Exam No apparent distress Constitutional: alert, oriented Head: normocephalic Respiratory: other (Coarse breath sounds bilaterally, no wheezing) Cardiovascular: irregular rhythm, other (S1-S2 heard) Gastrointestinal: soft, non-tender, bowel sounds Extremities: edema Medications Medications Current Medications Diltiazem HCl (Cardizem) 30 mg Q6 PO Last administered on 07/01/18at 11:23; Admin Dose 30 MG; Start 07/01/18 at 00:00 Metoprolol Tartrate (Lopressor) 5 mg Q6H PRN IV TACHYARDIA Last administered on 07/01/18at 00:22; Admin Dose 5 MG; Start 06/30/18 at 20:00 Enoxaparin Sodium (Lovenox) 40 mg DAILY SC Last administered on 07/01/18at 08:32; Admin Dose 40 MG; Start 07/01/18 at 09:00 IV Flush (NS 3 ml) 3 ml PER PROTOCOL IV ; Start 06/30/18 at 20:00 Ondansetron HCl (Zofran Inj) 4 mg Q6H PRN IV NAUSEA AND/OR VOMITING; Start 06/30/18 at 20:00 Nitroglycerin (Nitroglycerin (Sl Tab) 0.4 Mg) 1 tab Q5M PRN SL CHEST PAIN; Start 06/30/18 at 20:00 Acetaminophen (Tylenol Tab) 650 mg Q6H PRN PO PAIN LEVEL 1-3 OR FEVER; Start 06/30/18 at 20:00 Morphine Sulfate (morphine) 2 mg Q4H PRN IV PAIN LEVEL 7-10; Start 06/30/18 at 20:00 Docusate Sodium (Colace) 100 mg Q12H PRN PO CONSTIPATION; Start 06/30/18 at 20:00 Magnesium Hydroxide (Milk Of Mag) 30 ml DAILY PRN PO CONSTIPATION; Start 06/30/18 at 20:00 Bisacodyl (Dulcolax Supp) 10 mg DAILY PRN [place] CONSTIPATION; Start 06/30/18 at 20:00 Influenza Virus Vaccine Quadrival (Fluzone) 0.5 ml ONCE ONCE IM* ; Start 07/02/18 at 10:00; Stop 07/02/18 at 10:01 Aspirin (Ecotrin) 325 mg ONCE ONCE PO ; Start 07/01/18 at 12:00; Stop 07/01/18 at 12:01 Aspirin (Halfprin) 81 mg DAILY PO ; Start 07/02/18 at 09:00 Nicotine (Nicoderm 21 Mg/ 24hr) 1 patch DAILY TRANSDERM ; Start 07/01/18 at 13:00 Imaging Imaging ECG with atrial fibrillation at 77 bpm, septal Q waves, nonspecific ST abnorm alities Jose Bojorquez DO Jul 01, 2018 12:17
[2018-07-01] MEDS ORDERED: DILTIAZEM 30 MG TAB PO PRN (12:30)
[2018-07-01] MEDS: METOPROLOL 25 MG TAB PO SCH ×2 (13:47→22:06)
[2018-07-01] MEDS: FUROSEMIDE 20 MG INJ IV SCH ×2 (13:47→17:42)
[2018-07-01] MEDS: NICOTINE (21 MG/24 HR) PATCH TRANSDERM SCH (13:47)
--- NOTE | 2018-07-01 18:09 | NUR ---
EOSS: NO ACUTE DISTRESS DURING DAY SHIFT. PT IS AOX4, AMBULATES WITH ASSISTANCE, DENIES PAIN, RESPIRATIONS UNLABORED, ON 2L NC WITH O2 SATURATION ABOVE 94%. ALL MEDICATIONS GIVEN PRESCRIBED. ALL PT'S NEEDS HAVE BEEN MET. 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
--- NOTE | 2018-07-01 18:53 | RADRPT ---
Echocardiogram Report Patient Name: ASHLYN ARAUJO Gender: Male Date: 1945 Study Date: 01-Jul-2018 Sheriff'S Detective: TB Location: 525 Ref. Physician: ROBERT WHEAT Quality: Good Procedures: Transthoracic echocardiogram with complete 2D, M-Mode, and doppler examination. Indications: Atrial Fibrillation new onset. 2D/M Mode Doppler Measurement Value Normal Ranges Measurement Value Normal Ranges LVIDd 2D 4.1 3.5 - 5.6 cm AV Mean Martin 0.8 m/sec LVIDs 2D 3.4 2.1 - 4.1 cm AV Mean PG 3.0 mmHg LVPWd 2D 1.6 0.6 - 1.1 cm AV VTI 17.3 cm IVSd 2D 2.1 0.6 - 1.1 cm AI Peak PG 46.0 mmHg AoR Diam 2D 3.3 2.0 - 3.7 cm AI Peak Martin 3.4 m/sec LA/Ao 2D 1 0 - 1 AI PHT 6476.0 msec EF 2D 36.0 50.0 - 65.0 % LVOT Mean Martin 0.6 m/sec LA Dimen 2D 3.7 2.3 - 4.0 cm LVOT Mean PG 2.0 mmHg IVC Diam 2.0 1.2 - 2.0 LVOT Peak Martin 1.0 m/sec LVOT Peak PG 4.0 mmHg TAPSE 1.6 cm TR Peak Martin 3.5 m/sec TR Peak PG 50.0 mmHg RVSP 53.0 mmHg RA Pressure 3.0 Findings Left Ventricle: Lower limits of normal systolic function. Normal left ventricular cavity size. Severe left ventricular hypertrophy. Ejection fraction is visually estimated at 50 %. Abnormal Diastolic Function. Right Ventricle: Normal right ventricular systolic function. Moderate enlargement of right ventricle. Left Atrium: There is severe enlargement of left atrium. Right Atrium: There is severe enlargement of right atrium. Mitral Valve: Mild mitral leaflet calcification. Moderate mitral annular calcification. Mild mitral valve regurgitation. The regurgitation jet is eccentrically directed which may underestimate the severity of mitral regurgitation. Aortic Valve: Aortic sclerosis without significant stenosis. Aortic cusps appear mildly calcified. Mild aortic valve regurgitation. Tricuspid Valve: Normal appearance of the tricuspid valve. Estimated peak PA systolic pressure 53 mmHg. There is moderate tricuspid regurgitation. Pulmonic Valve: There is trace pulmonic regurgitation. Pericardium: Normal pericardium with no significant pericardial effusion. Aorta: Normal aortic root. IVC: Normal size and normal respiratory collapse consistent with normal right atrial pressure. Conclusions Lower limits of normal systolic function. Normal left ventricular cavity size. Severe left ventricular hypertrophy. Ejection fraction is visually estimated at 50 %. Abnormal Diastolic Function. Normal right ventricular systolic function. Moderate enlargement of right ventricle. There is severe enlargement of left atrium. There is severe enlargement of right atrium. Mild mitral valve regurgitation. The regurgitation jet is eccentrically directed which may underestimate the severity of mitral regurgitation. Aortic sclerosis without significant stenosis. Mild aortic valve regurgitation. Estimated peak PA systolic pressure 53 mmHg. There is moderate tricuspid regurgitation. Normal pericardium with no significant pericardial effusion. Electronically Signed By: Jose Bojorquez 01-Jul-2018 18:52:43 -0800 Patient Name: ASHLYN ARAUJO Study Date: 01-Jul-2018 [id number]
[2018-07-01] MEDS: APIXABAN 5 MG TABLET PO SCH (21:12)
--- NOTE | 2018-07-01 21:33 | NUR ---
PT HAD 19 BEATS OF VTACH AT 21:20. HE WAS ASYMPTOMATIC, VITALS: SBP 123/82; HR 99; 94% O2 ON 2 L NASAL CANNULA. INFORMED COVERING MD DR. WOODALL FOR DR. KELSEY. NO NEW ORDER.
[2018-07-02] VITALS (12 sets, daily range): BP systolic 86–114; BP diastolic 65–81; PULSE 59–120; RESP 16–19
[2018-07-02] MEDS: FUROSEMIDE 20 MG INJ IV SCH (05:53)
[2018-07-02] MEDS: METOPROLOL 25 MG TAB PO SCH ×2 (05:53→14:11)
--- NOTE | 2018-07-02 06:21 | NUR ---
END OF SHIFT REPORT HAD 2 EPISODES OF UNSUYSTAINED VTACH (21:20 WITH 19 BEATS AND ANOTHER AT 0105 WITH 6 BEATS. MD INFORMED DURING THE FIRST EPISODE. PATIENT ASYMPTOMATIC; VITALS STABLE. NO OTHER UNDUE DEVELOPMENT
[2018-07-02] MEDS ORDERED: ASPIRIN (EC) 81 MG TAB PO ONE (07:56)
[2018-07-02] MEDS: APIXABAN 5 MG TABLET PO SCH ×2 (08:02→20:30)
[2018-07-02] MEDS: ASPIRIN (EC) 81 MG TAB PO SCH (08:02)
[2018-07-02] MEDS: NICOTINE (21 MG/24 HR) PATCH TRANSDERM SCH (08:02)
[2018-07-02] MEDS ORDERED: INFLUENZA VIRUS VACCINE 0.5 ML (DISPENSING) IM* ONE (10:00)
--- NOTE | 2018-07-02 10:48 | PN ---
Date/Time of Note Date/Time of Note DATE: 07/02/18 TIME: 10:39 Assessment/Plan VTE Prophylaxis Risk score (from Ns)>0 risk: 2 SCD applied (from Ns): Yes Pharmacological prophylaxis: apixaban Lines/Catheters [facility] [place] Urinary Cath still in place: No Assessment/Plan Assessment/Plan 73-year-old male with: 1. Syncopal episode, likely related to arrhythmia and atrial fibrillation. CT head negative. No neurological deficit. Cardiac workup ongoing, heart rate control, cardiology following. Hemodynamically stable. Will check orthostatics. 2. Atrial fibrillation, new onset, episodes of rapid ventricular rate. TFTs within normal limits. Heart rate better controlled, on beta-blockers now. Patient with episodes of nonsustained V. tach overnight and this morning, currently resolved. Appreciate recommendations from cardiology. 2D echocardiogram with diastolic dysfunction and ejection fraction of 50%. Hemodynamically stable. 3. Elevated troponin, possibly demand ischemia, in setting of episodes of tachyarrhythmia, no previous diagnosis of coronary artery disease as far as we know. Troponin trended back to normal yesterday. Patient on aspirin Echocardiogram with ejection fraction of 50%. Cardiology following. 4. Hypertension: On beta-blockers, BP controlled so far. Check orthostatics, titrate BP medication up as needed. 5. Renal insufficiency, acute kidney injury versus CKD, unclear. Renal function more or less stable. Off IV hydration, on diuretics currently. Will monitor closely renal function and electrolytes. 6. Ascending aortic aneurysm, incidental finding, 4.7 cm, needs surveillance and monitoring, next CT angiogram due in 6 months to assess if stable size versus increasing size. For now no further intervention, discussed with cardiology. 7. Tobacco use, patient agreeable to quit, will order for nicotine patch. Possible COPD, starting patient on Brio Ellipta and Spiriva. 8. T11 compression fracture, old, incidental finding. Patient stable. No signs of adenopathy seen or pulmonary masses seen. Prophylaxis: Lovenox for DVT prophylaxis, patient tolerating p.o. Disposition: Heart rate control, evaluating for acute coronary syndrome and monitoring renal function. Result Diagram: 07/02/18 0552 07/02/18 0552 Results 24hrs Laboratory Tests Test 07/01/18 14:32 07/01/18 19:47 07/02/18 05:52 Creatine Kinase 1533 H 1507 H Creatine Kinase Index 2.3 2.2 Creatinine Kinase MB (Mass) 35.70 H 33.30 H Troponin I 0.117 0.114 White Blood Count 5.3 # Red Blood Count 5.30 Hemoglobin 16.5 Hematocrit 49.4 Mean Corpuscular Volume 93.2 Mean Corpuscular Hemoglobin 31.1 Mean Corpuscular Hemoglobin Concent 33.4 Red Cell Distribution Width 15.4 H Platelet Count 105 L Mean Platelet Volume 12.2 H Immature Granulocytes % 1.300 H Neutrophils % 67.9 Lymphocytes % 18.2 Monocytes % 11.8 H Eosinophils % 0.4 Basophils % 0.4 Nucleated Red Blood Cells % 0.6 H Immature Granulocytes # 0.070 H Neutrophils # 3.6 Lymphocytes # 1.0 Monocytes # 0.6 Eosinophils # 0.0 Basophils # 0.0 Nucleated Red Blood Cells # 0.0 Sodium Level 137 Potassium Level 3.9 Chloride Level 101 Carbon Dioxide Level 30 Anion Gap 6 # Blood Urea Nitrogen 50 H Creatinine 1.40 H Est Glomerular Filtrat Rate mL/min Glucose Level 79 Calcium Level 8.7 Phosphorus Level 4.0 Magnesium Level 2.1 Subjective 24 Hr Interval Summary Free Text/Dictation Patient had 19 beats of nonsustained V. tach overnight and 6 weeks nonsustained V. tach this morning. He remained asymptomatic throughout. He is in atrial fibrillation currently. Exam/Review of Systems Vital Signs Vitals Vital Signs Date Temp Pulse Resp B/P (MAP) Pulse Ox O2 O2 Flow FiO2 Time Delivery Rate 07/02/18 105 08:41 07/02/18 Nasal 3.0 07:44 Cannula 07/02/18 97.7 18 110/81 92 07:30 (91) Intake and Output 07/01/18 07/01/18 07/02/18 1515:00 23:00 07:00 IntakeIntake Total 250 ml 150 ml OutputOutput Total 560 ml 250 ml BalanceBalance -310 ml -100 ml Exam Constitutional: alert, oriented, well developed Respiratory: clear to auscultation, normal air movement Cardiovascular: nl pulses, irregular rhythm (Atrial fibrillation) Gastrointestinal: soft, non-tender Musculoskeletal: nl extremities to inspection Extremities: normal pulses, other (No edema, clubbing or cyanosis) Neurological: VEHICLE MONITOR TECHNICIAN II-XII intact, nl mental status, nl speech, nl strength Medications Medications Current Medications Metoprolol Tartrate (Lopressor) 5 mg Q6H PRN IV TACHYARDIA Last administered on 07/01/18at 00:22; Admin Dose 5 MG; Start 06/30/18 at 20:00 IV Flush (NS 3 ml) 3 ml PER PROTOCOL IV ; Start 06/30/18 at 20:00 Ondansetron HCl (Zofran Inj) 4 mg Q6H PRN IV NAUSEA AND/OR VOMITING; Start 06/30/18 at 20:00 Nitroglycerin (Nitroglycerin (Sl Tab) 0.4 Mg) 1 tab Q5M PRN SL CHEST PAIN; Start 06/30/18 at 20:00 Acetaminophen (Tylenol Tab) 650 mg Q6H PRN PO PAIN LEVEL 1-3 OR FEVER; Start 06/30/18 at 20:00 Morphine Sulfate (morphine) 2 mg Q4H PRN IV PAIN LEVEL 7-10; Start 06/30/18 at 20:00 Docusate Sodium (Colace) 100 mg Q12H PRN PO CONSTIPATION; Start 06/30/18 at 20:00 Magnesium Hydroxide (Milk Of Mag) 30 ml DAILY PRN PO CONSTIPATION; Start 06/30/18 at 20:00 Bisacodyl (Dulcolax Supp) 10 mg DAILY PRN [place] CONSTIPATION; Start 06/30/18 at 20:00 Aspirin (Halfprin) 81 mg DAILY PO Last administered on 07/02/18at 08:02; Admin Dose 81 MG; Start 07/02/18 at 09:00 Nicotine (Nicoderm 21 Mg/ 24hr) 1 patch DAILY TRANSDERM Last administered on 07/02/18at 08:02; Admin Dose 1 PATCH; Start 07/01/18 at 13:00 Diltiazem HCl (Cardizem) 30 mg Q6 PRN PO sustained hr>130; Start 07/01/18 at 12:30 Furosemide (Lasix) 20 mg BID DIURETICS IV Last administered on 07/02/18at 05:53; Admin Dose 20 MG; Start 07/01/18 at 12:30 Metoprolol Tartrate (Lopressor) 25 mg Q8 PO Last administered on 07/02/18at 05:53; Admin Dose 25 MG; Start 07/01/18 at 14:00 Apixaban (Eliquis) 5 mg BID PO Last administered on 07/02/18at 08:02; Admin Dose 5 MG; Start 07/01/18 at 21:00 Imaging Imaging Repeat Chest x-ray pending. Echocardiogram Report Patient Name: ASHLYN ARAUJO Gender: Male Date: 1945 Study Date: 01-Jul-2018 Printing Mechanist: MEME Location: 525 Ref. Physician: ROBERT WHEAT Quality: Good Procedures: Transthoracic echocardiogram with complete 2D, M-Mode, and doppler examination. Indications: Atrial Fibrillation new onset. 2D/M Mode Doppler Measurement Value Normal Ranges Measurement Value Normal Ranges LVIDd 2D 4.1 3.5 - 5.6 cm AV Mean Martin 0.8 m/sec LVIDs 2D 3.4 2.1 - 4.1 cm AV Mean PG 3.0 mmHg LVPWd 2D 1.6 0.6 - 1.1 cm AV VTI 17.3 cm IVSd 2D 2.1 0.6 - 1.1 cm AI Peak PG 46.0 mmHg AoR Diam 2D 3.3 2.0 - 3.7 cm AI Peak Martin 3.4 m/sec LA/Ao 2D 1 0 - 1 AI PHT 6476.0 msec EF 2D 36.0 50.0 - 65.0 % LVOT Mean Martin 0.6 m/sec LA Dimen 2D 3.7 2.3 - 4.0 cm LVOT Mean PG 2.0 mmHg IVC Diam 2.0 1.2 - 2.0 LVOT Peak Martin 1.0 m/sec LVOT Peak PG 4.0 mmHg TAPSE 1.6 cm TR Peak Martin 3.5 m/sec TR Peak PG 50.0 mmHg RVSP 53.0 mmHg RA Pressure 3.0 Findings Left Ventricle: Lower limits of normal systolic function. Normal left ventricular cavity size. Severe left ventricular hypertrophy. Ejection fraction is visually estimated at 50 %. Abnormal Diastolic Function. Right Ventricle: Normal right ventricular systolic function. Moderate enlargement of right ventricle. Left Atrium: There is severe enlargement of left atrium. Right Atrium: There is severe enlargement of right atrium. Mitral Valve: Mild mitral leaflet calcification. Moderate mitral annular calcification. Mild mitral valve regurgitation. The regurgitation jet is eccentrically directed which may underestimate the severity of mitral regurgitation. Aortic Valve: Aortic sclerosis without significant stenosis. Aortic cusps appear mildly calcified. Mild aortic valve regurgitation. Tricuspid Valve: Normal appearance of the tricuspid valve. Estimated peak PA systolic pressure 53 mmHg. There is moderate tricuspid regurgitation. Pulmonic Valve: There is trace pulmonic regurgitation. Pericardium: Normal pericardium with no significant pericardial effusion. Aorta: Normal aortic root. IVC: Normal size and normal respiratory collapse consistent with normal right atrial pressure. Conclusions Lower limits of normal systolic function. Normal left ventricular cavity size. Severe left ventricular hypertrophy. Ejection fraction is visually estimated at 50 %. Abnormal Diastolic Function. Normal right ventricular systolic function. Moderate enlargement of right ventricle. There is severe enlargement of left atrium. There is severe enlargement of right atrium. Mild mitral valve regurgitation. The regurgitation jet is eccentrically directed which may underestimate the severity of mitral regurgitation. Aortic sclerosis without significant stenosis. Mild aortic valve regurgitation. Estimated peak PA systolic pressure 53 mmHg. There is moderate tricuspid regurgitation. Normal pericardium with no significant pericardial effusion. Electronically Signed By: Jose Bojorquez 01-Jul-2018 18:52:43 -0800 JUAN CARLOS WHEAT Jul 02, 2018 10:48
[2018-07-02] MEDS: FLUTICASONE/VILANTEROL 100-25 INH SCH (11:37)
[2018-07-02] MEDS: TIOTROPIUM 18 MCG CAPSULE INHA DEV INH SCH (11:38)
--- NOTE | 2018-07-02 12:25 | NUR ---
RN NOTES: PT HAD 18 BEATS OF V-TACH AROUND 11:20 AM. PT IS ASYMPTOMATIC, VS STABLE. DR. WHEAT AND DR. KELSEY AWARE. WILL CONTINUE TO MONITOR PT.
[2018-07-02] MEDS ORDERED: POTASSIUM CHLORIDE (SR) 20 MEQ TAB PO STA (14:47)
[2018-07-02] MEDS ORDERED: ALBUTEROL/IPRATROPIUM (NEB) 3 ML AMP HHN PRN (15:00)
--- NOTE | 2018-07-02 15:19 | CONS ---
Date/Time of Note Date/Time of Note DATE: 07/02/18 TIME: 15:17 Assessment/Plan Assessment/Plan Assessment/Plan Newly diagnosed atrial fibrillation Acute decompensated systolic congestive heart failure Renal dysfunction Hypertension Cardiomyopathy with ejection fraction 50% Mitral and tricuspid valve regurgitation NSVT -Increase dose of beta-noel -Troponins are mildly elevated and trending down. Possibly secondary to decompensated congestive heart failure, atrial fibrillation with rapid ventricular rates. Would plan for nuclear cardiac perfusion study tomorrow -Continue aspirin therapy, no statin at the current time given abnormal LFTs. -Maintain potassium above 4.0 and magnesium above 2.0 Result Diagram: 07/02/18 0552 07/02/18 1259 Results 24hrs Laboratory Tests Test 07/01/18 19:47 07/02/18 05:52 07/02/18 12:59 Creatine Kinase 1507 H Creatine Kinase Index 2.2 Creatinine Kinase MB (Mass) 33.30 H Troponin I 0.114 White Blood Count 5.3 # Red Blood Count 5.30 Hemoglobin 16.5 Hematocrit 49.4 Mean Corpuscular Volume 93.2 Mean Corpuscular Hemoglobin 31.1 Mean Corpuscular Hemoglobin Concent 33.4 Red Cell Distribution Width 15.4 H Platelet Count 105 L Mean Platelet Volume 12.2 H Immature Granulocytes % 1.300 H Neutrophils % 67.9 Lymphocytes % 18.2 Monocytes % 11.8 H Eosinophils % 0.4 Basophils % 0.4 Nucleated Red Blood Cells % 0.6 H Immature Granulocytes # 0.070 H Neutrophils # 3.6 Lymphocytes # 1.0 Monocytes # 0.6 Eosinophils # 0.0 Basophils # 0.0 Nucleated Red Blood Cells # 0.0 Sodium Level 137 136 Potassium Level 3.9 3.8 Chloride Level 101 100 Carbon Dioxide Level 30 31 Anion Gap 6 # 5 Blood Urea Nitrogen 50 H 51 H Creatinine 1.40 H 1.33 H Est Glomerular Filtrat Rate mL/min Glucose Level 79 59 #L Calcium Level 8.7 8.5 Phosphorus Level 4.0 Magnesium Level 2.1 2.1 Consultation Date/Type/Reason Admit Date/Time Jun 30, 2018 at 18:59 Initial Consult Date Type of Consult cv 24 HR Interval Summary Free Text/Dictation Feeling better, less shortness of breath, denies chest pain or palpitations Exam/Review of Systems Vital Signs Vitals Vital Signs Date Temp Pulse Resp B/P (MAP) Pulse Ox O2 O2 Flow FiO2 Time Delivery Rate 07/02/18 97.8 60 19 104/71 94 14:58 (82) 07/02/18 Nasal 3.0 07:44 Cannula Intake and Output 07/01/18 07/01/18 07/02/18 1515:00 23:00 07:00 IntakeIntake Total 250 ml 150 ml OutputOutput Total 560 ml 250 ml BalanceBalance -310 ml -100 ml Exam No apparent distress Constitutional: alert, oriented Neck: supple Respiratory: other (Coarse breath sounds bilaterally, no wheezing) Cardiovascular: irregular rhythm, other (S1-S2 heard) Gastrointestinal: soft, non-tender, bowel sounds Extremities: edema Medications Medications Current Medications Metoprolol Tartrate (Lopressor) 5 mg Q6H PRN IV TACHYARDIA Last administered on 07/01/18at 00:22; Admin Dose 5 MG; Start 06/30/18 at 20:00 IV Flush (NS 3 ml) 3 ml PER PROTOCOL IV ; Start 06/30/18 at 20:00 Ondansetron HCl (Zofran Inj) 4 mg Q6H PRN IV NAUSEA AND/OR VOMITING; Start 06/30/18 at 20:00 Nitroglycerin (Nitroglycerin (Sl Tab) 0.4 Mg) 1 tab Q5M PRN SL CHEST PAIN; Start 06/30/18 at 20:00 Acetaminophen (Tylenol Tab) 650 mg Q6H PRN PO PAIN LEVEL 1-3 OR FEVER; Start 06/30/18 at 20:00 Morphine Sulfate (morphine) 2 mg Q4H PRN IV PAIN LEVEL 7-10; Start 06/30/18 at 20:00 Docusate Sodium (Colace) 100 mg Q12H PRN PO CONSTIPATION; Start 06/30/18 at 20:00 Magnesium Hydroxide (Milk Of Mag) 30 ml DAILY PRN PO CONSTIPATION; Start 06/30/18 at 20:00 Bisacodyl (Dulcolax Supp) 10 mg DAILY PRN [place] CONSTIPATION; Start 06/30/18 at 20:00 Aspirin (Halfprin) 81 mg DAILY PO Last administered on 07/02/18at 08:02; Admin Dose 81 MG; Start 07/02/18 at 09:00 Nicotine (Nicoderm 21 Mg/ 24hr) 1 patch DAILY TRANSDERM Last administered on 07/02/18at 08:02; Admin Dose 1 PATCH; Start 07/01/18 at 13:00 Diltiazem HCl (Cardizem) 30 mg Q6 PRN PO sustained hr>130; Start 07/01/18 at 12:30 Metoprolol Tartrate (Lopressor) 25 mg Q8 PO Last administered on 07/02/18at 14:11; Admin Dose 25 MG; Start 07/01/18 at 14:00 Apixaban (Eliquis) 5 mg BID PO Last administered on 07/02/18at 08:02; Admin Dose 5 MG; Start 07/01/18 at 21:00 Fluticasone/ Vilanterol (Breo Ellipta 100-25 Mcg Inh) 1 inh DAILY INH Last administered on 07/02/18at 11:37; Admin Dose 1 INH; Start 07/02/18 at 11:30 Tiotropium [place] (Spiriva) 1 inh DAILY INH Last administered on 07/02/18at 11:38; Admin Dose 1 INH; Start 07/02/18 at 11:30 Furosemide (Lasix) 20 mg DAILY IV ; Start 07/03/18 at 09:00 Albuterol/ Ipratropium (Duoneb) 3 ml Q4H RESP THERAPY PRN HHN SHORTNESS OF BREATH; Start 07/02/18 at 15:00 Jose Bojorquez DO Jul 02, 2018 15:19
[2018-07-02] MEDS ORDERED: FUROSEMIDE 20 MG INJ IV ONE (15:30)
[2018-07-02] MEDS ORDERED: MAGNESIUM SULFATE 1 GM/D5W 100 ML IVPB ONE (17:00)
--- NOTE | 2018-07-02 18:08 | NUR ---
EOSS: NO ACUTE DISTRESS DURING DAY SHIFT. PT DID HAVE AN EPISODE OF 18 BEATS OF V-TACH AROUND 11:30 AM HOWEVER, PT WAS ASYMPTOMATIC, NO CHEST PAIN OR PRESSURE, VS KEY, AWARE. PT IS AOX3-4, ON 3L NC WITH O2 SATURATION AROUND 93%, DENIES PAIN, AMBULATES WITH ASSIST. PT WILL BE HAVING A STRESS TEST TOMORROW AND WILL BE NPO AFTER MIDNIGHT EXCEPT MEDS. ALL MEDICATIONS HAVE BEEN GIVEN PRESCRIBED. ALL PT'S NEEDS HAVE BEEN MET. WILL ENDORSE TO MANAGER [employer] SCI[employer] NURSE.
[2018-07-02] MEDS ORDERED: METOPROLOL 25 MG TAB PO SCH (21:00)
--- NOTE | 2018-07-02 21:44 | RADRPT ---
Vent Rate: 77 bpm RR Interval: 0 msec ND Interval: 0 msec QRS Duration: 88 msec QT Interval: 396 msec QTC Interval: 448 msec P-R-T [place]: 0 - -60 - 176 degrees Atrial fibrillation with premature ventricular or aberrantly conducted complexes Left anterior fascicular block Septal infarct , age undetermined ST amp; T wave abnormality, consider anterolateral ischemia or digitalis effect Abnormal ECG Electronically Signed By: Jose Bojorquez [id number]
[2018-07-03] VITALS (11 sets, daily range): BP systolic 111–141; BP diastolic 66–80; PULSE 58–111; RESP 18–20
--- NOTE | 2018-07-03 06:14 | NUR ---
END OF SHIFT REPORT HAD ANOTHER EPISODE OF VTACH, 19 BEATS, WHILE PT SLEEPING. STILL AFIB, RATE CONTROLLED (<100). NO COMPLAINT. KEPT ON NPO FOR STRESS TEST TODAY.
[2018-07-03] MEDS ORDERED: FUROSEMIDE 20 MG INJ IV SCH (09:00)
[2018-07-03] MEDS ORDERED: REGADENOSON 0.4 MG/5 ML SYG ONE (10:02)
--- NOTE | 2018-07-03 12:18 | PN ---
Date/Time of Note Date/Time of Note DATE: 07/03/18 TIME: 12:01 Assessment/Plan VTE Prophylaxis Risk score (from Ns)>0 risk: 3 SCD applied (from Ns): Yes Pharmacological prophylaxis: apixaban Lines/Catheters IV C[facility]ter Type (from [facility]): Saline Lock Urinary Cath still in place: No Assessment/Plan Assessment/Plan 73-year-old male with: 1. Syncopal episode, likely related to arrhythmia and atrial fibrillation. CT head negative. No neurological deficit. Cardiac workup ongoing, heart rate control, cardiology following. Patient was noted to have episode of nonsustained V. tach over the past 48 hours. Stress test done this a.m. and results pending. Hemodynamically stable. 2. Atrial fibrillation, new onset, episodes of rapid ventricular rate. TFTs within normal limits. Heart rate better controlled, on beta-blockers now. Patient with episodes of nonsustained V. tach. Appreciate recommendations from cardiology. 2D echocardiogram with diastolic dysfunction and ejection fraction of 50%. Hemodynamically stable. 3. Elevated troponin, possibly demand ischemia, in setting of episodes of tachyarrhythmia, no previous diagnosis of coronary artery disease as far as we know. Troponin trended back to normal yesterday. Patient on aspirin Echocardiogram with ejection fraction of 50%. Patient had Lexiscan stress test this a.m., results pending. 4. Hypertension: On beta-blockers, BP controlled so far. 5. Renal insufficiency, acute kidney injury versus CKD, unclear. Renal function improved. Continue current diuretic dosing. 6. Ascending aortic aneurysm, incidental finding, 4.7 cm, needs surveillance and monitoring, next CT angiogram due in 6 months to assess if stable size versus increasing size. For now no further intervention, discussed with ca rdiology. 7. Tobacco use, patient agreeable to quit, will order for nicotine patch. Possible COPD, on Brio Ellipta and Spiriva now, along with duonebs as needed.. 8. T11 compression fracture, old, incidental finding. Patient stable. No signs of adenopathy seen or pulmonary masses seen. Prophylaxis: Lovenox for DVT prophylaxis, patient tolerating p.o. Disposition: Heart rate control, follow-up stress test results and monitor renal function. Result Diagram: 07/03/18 0529 07/03/18 0529 Results 24hrs Laboratory Tests Test 07/02/18 12:59 07/03/18 05:29 Sodium Level 136 136 Potassium Level 3.8 4.4 Chloride Level 100 99 Carbon Dioxide Level 31 31 Anion Gap 5 6 Blood Urea Nitrogen 51 H 48 H Creatinine 1.33 H 1.26 H Est Glomerular Filtrat Rate mL/min Glucose Level 59 #L 75 Calcium Level 8.5 8.9 Magnesium Level 2.1 2.3 White Blood Count 4.6 L Red Blood Count 5.08 Hemoglobin 15.8 Hematocrit 47.9 Mean Corpuscular Volume 94.3 Mean Corpuscular Hemoglobin 31.1 Mean Corpuscular Hemoglobin Concent 33.0 Red Cell Distribution Width 15.2 H Platelet Count 97 L Mean Platelet Volume 12.7 H Immature Granulocytes % 1.300 H Neutrophils % 67.9 Lymphocytes % 17.7 Monocytes % 12.3 H Eosinophils % 0.4 Basophils % 0.4 Nucleated Red Blood Cells % 0.4 H Immature Granulocytes # 0.060 H Neutrophils # 3.2 Lymphocytes # 0.8 Monocytes # 0.6 Eosinophils # 0.0 Basophils # 0.0 Nucleated Red Blood Cells # 0.0 Subjective 24 Hr Interval Summary Free Text/Dictation Patient with no complaints, no chest pain, he feels like his respiratory status is stable to improved, will decrease O2 to 2 L nasal cannula and titrate down. Status post stress test this morning. Exam/Review of Systems Vital Signs Vitals Vital Signs Date Temp Pulse Resp B/P (MAP) Pulse Ox O2 O2 Flow FiO2 Time Delivery Rate 07/03/18 64 08:40 07/03/18 97.6 20 111/75 100 07:19 (87) 07/02/18 Nasal 3.0 20:00 Cannula Intake and Output 07/02/18 07/02/18 07/03/18 1515:00 23:00 07:00 IntakeIntake Total 600 ml 50 ml BalanceBalance 600 ml 50 ml Exam Constitutional: alert, oriented, well developed Respiratory: clear to auscultation, normal air movement Cardiovascular: irregular rhythm (Atrial fibrillation) Gastrointestinal: soft, non-tender Musculoskeletal: nl extremities to inspection Extremities: normal pulses, other (No edema, clubbing or cyanosis) 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 CLEANER II-XII 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, nl mental status, nl speech, nl strength Medications Medications Current Medications Metoprolol Tartrate (Lopressor) 5 mg Q6H PRN IV TACHYARDIA Last administered on 07/01/18at 00:22; Admin Dose 5 MG; Start 06/30/18 at 20:00 IV Flush (NS 3 ml) 3 ml PER PROTOCOL IV ; Start 06/30/18 at 20:00 Ondansetron HCl (Zofran Inj) 4 mg Q6H PRN IV NAUSEA AND/OR VOMITING; Start 06/30/18 at 20:00 Nitroglycerin (Nitroglycerin (Sl Tab) 0.4 Mg) 1 tab Q5M PRN SL CHEST PAIN; Start 06/30/18 at 20:00 Acetaminophen (Tylenol Tab) 650 mg Q6H PRN PO PAIN LEVEL 1-3 OR FEVER; Start 06/30/18 at 20:00 Morphine Sulfate (morphine) 2 mg Q4H PRN IV PAIN LEVEL 7-10; Start 06/30/18 at 20:00 Docusate Sodium (Colace) 100 mg Q12H PRN PO CONSTIPATION; Start 06/30/18 at 20:00 Magnesium Hydroxide (Milk Of Mag) 30 ml DAILY PRN PO CONSTIPATION; Start 06/30/18 at 20:00 Bisacodyl (Dulcolax Supp) 10 mg DAILY PRN [place] CONSTIPATION; Start 06/30/18 at 20:00 Aspirin (Halfprin) 81 mg DAILY PO Last administered on 07/02/18at 08:02; Admin Dose 81 MG; Start 07/02/18 at 09:00 Nicotine (Nicoderm 21 Mg/ 24hr) 1 patch DAILY TRANSDERM Last administered on 07/02/18at 08:02; Admin Dose 1 PATCH; Start 07/01/18 at 13:00 Diltiazem HCl (Cardizem) 30 mg Q6 PRN PO sustained hr>130; Start 07/01/18 at 12:30 Apixaban (Eliquis) 5 mg BID PO Last administered on 07/02/18at 20:30; Admin Dose 5 MG; Start 07/01/18 at 21:00 Fluticasone/ Vilanterol (Breo Ellipta 100-25 Mcg Inh) 1 inh DAILY INH Last administered on 07/02/18at 11:37; Admin Dose 1 INH; Start 07/02/18 at 11:30 Tiotropium [place] (Spiriva) 1 inh DAILY INH Last administered on 07/02/18at 11:38; Admin Dose 1 INH; Start 07/02/18 at 11:30 Furosemide (Lasix) 20 mg DAILY IV ; Start 07/03/18 at 09:00 Albuterol/ Ipratropium (Duoneb) 3 ml Q4H RESP THERAPY PRN HHN SHORTNESS OF BREATH; Start 07/02/18 at 15:00 Metoprolol Tartrate (Lopressor) 50 mg BID PO Last administered on 07/02/18at 20:31; Admin Dose 50 MG; Start 07/02/18 at 21:00 JUAN CARLOS WHEAT Jul 03, 2018 12:11
--- NOTE | 2018-07-03 12:24 | CONS ---
Date/Time of Note Date/Time of Note DATE: 07/03/18 TIME: 12:23 Assessment/Plan Assessment/Plan Assessment/Plan Newly diagnosed atrial fibrillation Acute decompensated systolic congestive heart failure Renal dysfunction Hypertension Cardiomyopathy with ejection fraction 50% Mitral and tricuspid valve regurgitation NSVT -Less VT after increase beta-noel, continue as heart rate and blood pressure permits -Troponins are mildly elevated and trending down. Possibly secondary to decompensated congestive heart failure, atrial fibrillation with rapid ventricular rates. Patient for nuclear cardiac perfusion study today -Continue aspirin therapy, no statin at the current time given abnormal LFTs. -Maintain potassium above 4.0 and magnesium above 2.0 -Adjust Lasix to p.o. Result Diagram: 07/03/18 0529 07/03/18 0529 Results 24hrs Laboratory Tests Test 07/02/18 12:59 07/03/18 05:29 Sodium Level 136 136 Potassium Level 3.8 4.4 Chloride Level 100 99 Carbon Dioxide Level 31 31 Anion Gap 5 6 Blood Urea Nitrogen 51 H 48 H Creatinine 1.33 H 1.26 H Est Glomerular Filtrat Rate mL/min Glucose Level 59 #L 75 Calcium Level 8.5 8.9 Magnesium Level 2.1 2.3 White Blood Count 4.6 L Red Blood Count 5.08 Hemoglobin 15.8 Hematocrit 47.9 Mean Corpuscular Volume 94.3 Mean Corpuscular Hemoglobin 31.1 Mean Corpuscular Hemoglobin Concent 33.0 Red Cell Distribution Width 15.2 H Platelet Count 97 L Mean Platelet Volume 12.7 H Immature Granulocytes % 1.300 H Neutrophils % 67.9 Lymphocytes % 17.7 Monocytes % 12.3 H Eosinophils % 0.4 Basophils % 0.4 Nucleated Red Blood Cells % 0.4 H Immature Granulocytes # 0.060 H Neutrophils # 3.2 Lymphocytes # 0.8 Monocytes # 0.6 Eosinophils # 0.0 Basophils # 0.0 Nucleated Red Blood Cells # 0.0 Consultation Date/Type/Reason Admit Date/Time Jun 30, 2018 at 18:59 Initial Consult Date Type of Consult cv 24 HR Interval Summary Free Text/Dictation Patient feeling better today, denies any shortness of breath. Denies any chest pain Exam/Review of Systems Vital Signs Vitals Vital Signs Date Temp Pulse Resp B/P (MAP) Pulse Ox O2 O2 Flow FiO2 Time Delivery Rate 07/03/18 64 08:40 07/03/18 97.6 20 111/75 100 07:19 (87) 07/02/18 Nasal 3.0 20:00 Cannula Intake and Output 07/02/18 07/02/18 07/03/18 1515:00 23:00 07:00 IntakeIntake Total 600 ml 50 ml BalanceBalance 600 ml 50 ml Exam No apparent distress Constitutional: alert, oriented Head: normocephalic Respiratory: other (Coarse breath sounds bilaterally, no wheezing) Cardiovascular: irregular rhythm, other (S1-S2 heard) Gastrointestinal: soft, non-tender, bowel sounds Extremities: edema Medications Medications Current Medications Metoprolol Tartrate (Lopressor) 5 mg Q6H PRN IV TACHYARDIA Last administered on 07/01/18at 00:22; Admin Dose 5 MG; Start 06/30/18 at 20:00 IV Flush (NS 3 ml) 3 ml PER PROTOCOL IV ; Start 06/30/18 at 20:00 Ondansetron HCl (Zofran Inj) 4 mg Q6H PRN IV NAUSEA AND/OR VOMITING; Start 06/30/18 at 20:00 Nitroglycerin (Nitroglycerin (Sl Tab) 0.4 Mg) 1 tab Q5M PRN SL CHEST PAIN; Start 06/30/18 at 20:00 Acetaminophen (Tylenol Tab) 650 mg Q6H PRN PO PAIN LEVEL 1-3 OR FEVER; Start 06/30/18 at 20:00 Morphine Sulfate (morphine) 2 mg Q4H PRN IV PAIN LEVEL 7-10; Start 06/30/18 at 20:00 Docusate Sodium (Colace) 100 mg Q12H PRN PO CONSTIPATION; Start 06/30/18 at 20:00 Magnesium Hydroxide (Milk Of Mag) 30 ml DAILY PRN PO CONSTIPATION; Start 06/30/18 at 20:00 Bisacodyl (Dulcolax Supp) 10 mg DAILY PRN [place] CONSTIPATION; Start 06/30/18 at 20:00 Aspirin (Halfprin) 81 mg DAILY PO Last administered on 07/02/18at 08:02; Admin Dose 81 MG; Start 07/02/18 at 09:00 Nicotine (Nicoderm 21 Mg/ 24hr) 1 patch DAILY TRANSDERM Last administered on 07/02/18at 08:02; Admin Dose 1 PATCH; Start 07/01/18 at 13:00 Diltiazem HCl (Cardizem) 30 mg Q6 PRN PO sustained hr>130; Start 07/01/18 at 12:30 Apixaban (Eliquis) 5 mg BID PO Last administered on 07/02/18at 20:30; Admin Dose 5 MG; Start 07/01/18 at 21:00 Fluticasone/ Vilanterol (Breo Ellipta 100-25 Mcg Inh) 1 inh DAILY INH Last administered on 07/02/18at 11:37; Admin Dose 1 INH; Start 07/02/18 at 11:30 Tiotropium [place] (Spiriva) 1 inh DAILY INH Last administered on 07/02/18at 11:38; Admin Dose 1 INH; Start 07/02/18 at 11:30 Furosemide (Lasix) 20 mg DAILY IV ; Start 07/03/18 at 09:00 Albuterol/ Ipratropium (Duoneb) 3 ml Q4H RESP THERAPY PRN HHN SHORTNESS OF BREATH; Start 07/02/18 at 15:00 Metoprolol Tartrate (Lopressor) 50 mg BID PO Last administered on 07/02/18at 20:31; Admin Dose 50 MG; Start 07/02/18 at 21:00 Jose Bojorquez DO Jul 03, 2018 12:24
[2018-07-03] MEDS: APIXABAN 5 MG TABLET PO SCH ×2 (14:33→20:59)
[2018-07-03] MEDS: ASPIRIN (EC) 81 MG TAB PO SCH (14:33)
[2018-07-03] MEDS: TIOTROPIUM 18 MCG CAPSULE INHA DEV INH SCH (14:34)
[2018-07-03] MEDS: FLUTICASONE/VILANTEROL 100-25 INH SCH (14:34)
[2018-07-03] MEDS: NICOTINE (21 MG/24 HR) PATCH TRANSDERM SCH (14:35)
[2018-07-03] MEDS: METOPROLOL (XL) 50 MG TAB PO SCH (20:59)
[2018-07-03] MEDS: LISINOPRIL 5 MG TAB PO SCH (21:00)
[2018-07-04] VITALS (12 sets, daily range): BP systolic 101–135; BP diastolic 69–87; PULSE 59–110; RESP 16–20
[2018-07-04] MEDS: FUROSEMIDE 40 MG TAB PO SCH (05:43)
--- NOTE | 2018-07-04 06:24 | NUR ---
END OF SHIFT REPORT STRESS DONE YESTERDAY SHOWED NO PERFUSION DEFECT. EF IS AT 26% STILL AFIB ON MONITOR WITH OCCASIONAL PVCS BUT NO MORE RUNS OF VTACH. NO COMPLAINT. VITALS WNL.
[2018-07-04] MEDS: APIXABAN 5 MG TABLET PO SCH ×2 (08:31→20:55)
[2018-07-04] MEDS: METOPROLOL (XL) 50 MG TAB PO SCH ×2 (08:33→20:56)
[2018-07-04] MEDS: ASPIRIN (EC) 81 MG TAB PO SCH (08:33)
[2018-07-04] MEDS: FLUTICASONE/VILANTEROL 100-25 INH SCH (08:34)
[2018-07-04] MEDS: NICOTINE (21 MG/24 HR) PATCH TRANSDERM SCH (08:34)
[2018-07-04] MEDS: TIOTROPIUM 18 MCG CAPSULE INHA DEV INH SCH (08:35)
--- NOTE | 2018-07-04 10:44 | PN ---
Date/Time of Note Date/Time of Note DATE: 07/04/18 TIME: 10:37 Assessment/Plan VTE Prophylaxis Risk score (from Ns)>0 risk: 2 SCD applied (from Ns): Yes Pharmacological prophylaxis: apixaban Lines/Catheters [facility]from [facility] Saline Lock Urinary Cath still in place: No Assessment/Plan Assessment/Plan 73-year-old male with: 1. Syncopal episode, likely related to arrhythmia and atrial fibrillation. CT head negative. No neurological deficit. Cardiac workup ongoing, heart rate control, cardiology following. Patient was noted to have episode of nonsustained V. tach over the past 48 hours. Stress test negative for acute ischemia No syncopal episode witnessed during this admission, heart rate controlled. Hemodynamically stable. 2. Atrial fibrillation, new onset, episodes of rapid ventricular rate. TFTs within normal limits. Heart rate better controlled, on beta-blockers now. Patient with episodes of nonsustained V. tach. Appreciate recommendations from cardiology. 2D echocardiogram with diastolic dysfunction and ejection fraction of 50%. Hemodynamically stable. 3. Elevated troponin, possibly demand ischemia, in setting of episodes of tachyarrhythmia, no previous diagnosis of coronary artery disease as far as we know. Troponin trended back to normal and stress test negative for acute ischemia. Echocardiogram with ejection fraction of 50%. Continue ASA 4. Hypertension: On beta-blockers, BP controlled so far. 5. Renal insufficiency, acute kidney injury resolved. Renal function much improved. Tolerating Lasix daily. 6. Ascending aortic aneurysm, incidental finding, 4.7 cm, needs surveillance and monitoring, next CT angiogram due in 6 months to assess if stable size versus increasing size. For now no further intervention, discussed with cardiology. 7. Tobacco use, patient agreeable to quit, will order for nicotine patch. Likely COPD, plan to discharge her on Brio Ellipta and Spiriva. 8. T11 compression fracture, old, incidental finding. Patient stable. No signs of adenopathy seen or pulmonary masses seen. Prophylaxis: Lovenox for DVT prophylaxis, patient tolerating p.o. Disposition: Follow-up O2 sats on room air at rest and with exertion, if remains above 88-90%, patient likely to be discharged home this afternoon on the current cardiac medication. Discharge planning already discussed with cardiology, Dr. Bojorquez, yesterday who agreed with plan on discharge today as long as blood pressure tolerating current medications and heart rate controlled from the cardiac standpoint. Result Diagram: 07/04/18 0558 07/04/18 0558 Results 24hrs Laboratory Tests Test 07/04/18 05:58 White Blood Count 5.1 Red Blood Count 4.96 Hemoglobin 15.4 Hematocrit 46.5 Mean Corpuscular Volume 93.8 Mean Corpuscular Hemoglobin 31.0 Mean Corpuscular Hemoglobin Concent 33.1 Red Cell Distribution Width 15.4 H Platelet Count 110 L Mean Platelet Volume 12.5 H Immature Granulocytes % 1.200 H Neutrophils % 69.8 Lymphocytes % 16.6 Monocytes % 12.0 H Eosinophils % 0.2 Basophils % 0.2 Nucleated Red Blood Cells % 0.0 Immature Granulocytes # 0.060 H Neutrophils # 3.5 Lymphocytes # 0.8 Monocytes # 0.6 Eosinophils # 0.0 Basophils # 0.0 Nucleated Red Blood Cells # 0.0 Sodium Level 136 Potassium Level 4.2 Chloride Level 101 Carbon Dioxide Level 30 Anion Gap 5 Blood Urea Nitrogen 42 H Creatinine 1.15 Est Glomerular Filtrat Rate mL/min Glucose Level 91 Calcium Level 8.9 Phosphorus Level 3.5 Magnesium Level 2.2 Subjective 24 Hr Interval Summary Free Text/Dictation Patient doing fairly well. Will DC supplemental oxygen and check O2 sats on room air and with ambulation. As long as above 88% no need for supplemental O2 at home. Patient likely to have emphysema and COPD, still active tobacco user. Exam/Review of Systems Vital Signs Vitals Vital Signs Date Temp Pulse Resp B/P (MAP) Pulse Ox O2 O2 Flow FiO2 Time Delivery Rate 07/04/18 106 08:23 07/04/18 98.1 16 123/78 90 07:21 (93) 07/02/18 Nasal 3.0 20:00 Cannula Intake and Output 07/03/18 07/03/18 07/04/18 1515:00 23:00 07:00 IntakeIntake Total 600 ml 250 ml OutputOutput Total 300 ml 700 ml BalanceBalance 300 ml -450 ml Exam Constitutional: alert, oriented, well developed Respiratory: clear to auscultation, normal air movement, other (No wheezing or rales.) Cardiovascular: regular rate and rhythm, nl pulses Gastrointestinal: soft, non-tender Musculoskeletal: nl extremities to inspection Extremities: normal pulses, other (No edema, clubbing or cyanosis) 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, nl mental status, nl speech, nl strength Medications Medications Current Medications Metoprolol Tartrate (Lopressor) 5 mg Q6H PRN IV TACHYARDIA Last administered on 07/01/18at 00:22; Admin Dose 5 MG; Start 06/30/18 at 20:00 IV Flush (NS 3 ml) 3 ml PER PROTOCOL IV ; Start 06/30/18 at 20:00 Ondansetron HCl (Zofran Inj) 4 mg Q6H PRN IV NAUSEA AND/OR VOMITING; Start 06/30/18 at 20:00 Nitroglycerin (Nitroglycerin (Sl Tab) 0.4 Mg) 1 tab Q5M PRN SL CHEST PAIN; Start 06/30/18 at 20:00 Acetaminophen (Tylenol Tab) 650 mg Q6H PRN PO PAIN LEVEL 1-3 OR FEVER; Start 06/30/18 at 20:00 Morphine Sulfate (morphine) 2 mg Q4H PRN IV PAIN LEVEL 7-10; Start 06/30/18 at 20:00 Docusate Sodium (Colace) 100 mg Q12H PRN PO CONSTIPATION; Start 06/30/18 at 20:00 Magnesium Hydroxide (Milk Of Mag) 30 ml DAILY PRN PO CONSTIPATION; Start 06/30/18 at 20:00 Bisacodyl (Dulcolax Supp) 10 mg DAILY PRN [place] CONSTIPATION; Start 06/30/18 at 20:00 Aspirin (Halfprin) 81 mg DAILY PO Last administered on 07/04/18at 08:33; Admin Dose 81 MG; Start 07/02/18 at 09:00 Nicotine (Nicoderm 21 Mg/ 24hr) 1 patch DAILY TRANSDERM Last administered on 07/04/18at 08:34; Admin Dose 1 PATCH; Start 07/01/18 at 13:00 Diltiazem HCl (Cardizem) 30 mg Q6 PRN PO sustained hr>130; Start 07/01/18 at 12:30 Apixaban (Eliquis) 5 mg BID PO Last administered on 07/04/18at 08:31; Admin Dose 5 MG; Start 07/01/18 at 21:00 Fluticasone/ Vilanterol (Breo Ellipta 100-25 Mcg Inh) 1 inh DAILY INH Last administered on 07/04/18at 08:34; Admin Dose 1 INH; Start 07/02/18 at 11:30 Tiotropium [place] (Spiriva) 1 inh DAILY INH Last administered on 07/04/18at 08:35; Admin Dose 1 INH; Start 07/02/18 at 11:30 Albuterol/ Ipratropium (Duoneb) 3 ml Q4H RESP THERAPY PRN HHN SHORTNESS OF BREATH; Start 07/02/18 at 15:00 Furosemide (Lasix) 40 mg DAILY@0600 PO Last administered on 07/04/18at 05:43; Admin Dose 40 MG; Start 07/04/18 at 06:00 Metoprolol Succinate (Toprol Xl) 50 mg BID PO Last administered on 07/04/18at 08:33; Admin Dose 50 MG; Start 07/03/18 at 21:00 Lisinopril (Zestril) 2.5 mg QHS PO Last administered on 07/03/18at 21:00; Admin Dose 2.5 MG; Start 07/03/18 at 21:00 JUAN CARLOS WHEAT Jul 04, 2018 10:44
--- NOTE | 2018-07-04 10:57 | PDOCDIS ---
Discharge Instructions CONDITION [id number] Patient Condition: [id number] Stable HOME CARE INSTRUCTIONS: [id number] Diet Instructions: [id number] FOLLOW UP/APPOINTMENTS Follow-up Plan Follow-up with cardiology within 1-2 weeks, patient to be referred through [facility], he has been seen inpatient by Dr. Bojorquez Follow-up with primary care physician within 1 week JUAN CARLOS WHEAT Jul 04, 2018 10:57
[2018-07-04] MEDS ORDERED: METO-319 PO (11:03)
[2018-07-04] MEDS ORDERED: FURO20TA3 PO (11:03)
[2018-07-04] MEDS ORDERED: LISI-313 PO (11:03)
[2018-07-04] MEDS ORDERED: TIOT18CA INH (11:03)
[2018-07-04] MEDS ORDERED: FLUT1AER INH (11:03)
[2018-07-04] MEDS ORDERED: APIX5TAB PO (11:03)
[2018-07-04] MEDS ORDERED: ASPI-1044 PO (11:03)
--- NOTE | 2018-07-04 11:22 | NUR ---
Discharge coordination; Sent over order detail and clinical report to [facility] CM Team; faxed to . Will await their call back once arrangements made. Addendum: 07/04/18 at 1606 by SALVADOR RODRÍGUEZ RN CM [facility] Follow Up; Spoke with on-call CM and they are making arrangements for home oxygen. Ирина also have arranged home health for Patient; [facility] .
--- NOTE | 2018-07-04 19:28 | NUR ---
EOSS: A/O x 4, VS stable, denies any pain, unable to tolerate room air and 1L of O2. Pt currently on 2L o2 via NC. Notified pt on O2 titration and goal saturation per MD. Home and portable O2 will be arranged by [facility](see CM note for reference). All needs attended. Endorsed plan of care to oncoming shift accordingly.
[2018-07-04] MEDS: LISINOPRIL 5 MG TAB PO SCH (20:56)
[2018-07-04] MEDS: METOPROLOL 5 MG INJ IV PRN (22:09)
[2018-07-05] VITALS (12 sets, daily range): BP systolic 101–139; BP diastolic 48–99; PULSE 53–153; RESP 18
[2018-07-05] MEDS: FUROSEMIDE 40 MG TAB PO SCH (05:53)
--- NOTE | 2018-07-05 06:52 | NUR ---
EOSS Pt AOx4. VS stable. Afib rate controlled at 80s on monitor. PRN IV Metoprolol given for HR>110. O2 titrated to 1LPM on nasal cannula. No complaints of pain/SOB/. Fall precautions implemented. Hourly rounding done. Will endorse to AM shift.
[2018-07-05] MEDS: FLUTICASONE/VILANTEROL 100-25 INH SCH (08:23)
[2018-07-05] MEDS: NICOTINE (21 MG/24 HR) PATCH TRANSDERM SCH (08:26)
[2018-07-05] MEDS: TIOTROPIUM 18 MCG CAPSULE INHA DEV INH SCH (08:26)
[2018-07-05] MEDS: APIXABAN 5 MG TABLET PO SCH ×2 (08:28→19:54)
[2018-07-05] MEDS: ASPIRIN (EC) 81 MG TAB PO SCH (08:28)
[2018-07-05] MEDS: METOPROLOL (XL) 50 MG TAB PO SCH ×2 (08:28→19:55)
--- NOTE | 2018-07-05 12:09 | PN ---
Date/Time of Note Date/Time of Note DATE: 07/05/18 TIME: 11:48 Assessment/Plan VTE Prophylaxis Risk score (from Ns)>0 risk: 2 SCD applied (from Ns): Yes Pharmacological prophylaxis: apixaban Lines/Catheters IV [facility]from [facility] Saline Lock Urinary Cath still in place: No Assessment/Plan Assessment/Plan 73-year-old male with: 1. Syncopal episode, likely related to arrhythmia and atrial fibrillation. CT head negative. No neurological deficit. Cardiac workup ongoing, heart rate control, cardiology following. Patient was noted to have episode of nonsustained V. tach over the past 48 hours. Stress test negative for acute ischemia No syncopal episode witnessed during this admission, heart rate controlled. Hemodynamically stable. 2. Atrial fibrillation, new onset, episodes of rapid ventricular rate. TFTs within normal limits. Heart rate better controlled, on beta-blockers now. Patient with episodes of nonsustained V. tach. Appreciate recommendations from cardiology. 2D echocardiogram with diastolic dysfunction and ejection fraction of 50%. Hemodynamically stable. 3. Elevated troponin, possibly demand ischemia, in setting of episodes of tachyarrhythmia, no previous diagnosis of coronary artery disease as far as we know. Troponin trended back to normal and stress test negative for acute ischemia. Echocardiogram with ejection fraction of 50%. Continue ASA 4. Hypertension: On beta-blockers, BP controlled so far. 5. Renal insufficiency, acute kidney injury resolved. Renal function much improved. Tolerating Lasix daily. 6. Ascending aortic aneurysm, incidental finding, 4.7 cm, needs surveillance and monitoring, next CT angiogram due in 6 months to assess if stable size versus increasing size. For now no further intervention, discussed with cardiology. 7. Tobacco use, patient agreeable to quit, will order for nicotine patch. Likely COPD, plan to discharge him on Brio Ellipta and Spiriva. 8. T11 compression fracture, old, incidental finding. Patient stable. No signs of adenopathy seen or pulmonary masses seen. 9. Hypoxemia, on admission patient did have mild volume overload which is now resolved, likely secondary to also COPD now on appropriate inhalers, today hypoxemia resolved, O2 sat 92-94% on room air. Patient was decided yesterday to 85% therefore he is being discharged on 2 L nasal cannula as needed with exertion or while sleeping. Prophylaxis: On Eliquis, patient tolerating p.o. Disposition: Adequate O2 sats today, portable O2 already ordered for home. Patient discharged home today with home O2 and home health RN check. He is to remain on the current cardiac medications. Discharge planning already discussed with cardiology, Dr. Bojorquez, yesterday who agreed with plan on discharge today a s long as blood pressure tolerating current medications and heart rate controlled from the cardiac standpoint. Result Diagram: 07/04/18 0558 07/04/18 0558 Subjective 24 Hr Interval Summary Free Text/Dictation Patient remains stable, hypoxemia seems to be resolved currently at least at rest, repeat chest x-ray clear with no atelectasis. Patient satting 92-94% on room air at rest. However with desaturation down to 85% yesterday, O2 has been already arranged and patient to be discharged home today Exam/Review of Systems Vital Signs Vitals Vital Signs Date Temp Pulse Resp B/P (MAP) Pulse Ox O2 O2 Flow FiO2 Time Delivery Rate 07/05/18 Nasal 1.0 09:08 Cannula 07/05/18 118 08:15 07/05/18 98.0 18 132/90 98 07:50 (104) Intake and Output 07/04/18 07/04/18 07/05/18 1515:00 23:00 07:00 IntakeIntake Total 450 ml 240 ml OutputOutput Total 750 ml 700 ml BalanceBalance -300 ml -460 ml Exam Constitutional: alert, oriented, well developed Respiratory: clear to auscultation, normal air movement Cardiovascular: irregular rhythm Gastrointestinal: soft, non-tender Musculoskeletal: nl extremities to inspection Extremities: normal pulses, other (No edema, clubbing or cyanosis) 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, nl mental status, nl speech, nl strength (at baseline ) Medications Medications Current Medications Metoprolol Tartrate (Lopressor) 5 mg Q6H PRN IV TACHYARDIA Last administered on 07/04/18at 22:09; Admin Dose 5 MG; Start 06/30/18 at 20:00 IV Flush (NS 3 ml) 3 ml PER PROTOCOL IV ; Start 06/30/18 at 20:00 Ondansetron HCl (Zofran Inj) 4 mg Q6H PRN IV NAUSEA AND/OR VOMITING; Start 06/30/18 at 20:00 Nitroglycerin (Nitroglycerin (Sl Tab) 0.4 Mg) 1 tab Q5M PRN SL CHEST PAIN; Start 06/30/18 at 20:00 Acetaminophen (Tylenol Tab) 650 mg Q6H PRN PO PAIN LEVEL 1-3 OR FEVER; Start 06/30/18 at 20:00 Morphine Sulfate (morphine) 2 mg Q4H PRN IV PAIN LEVEL 7-10; Start 06/30/18 at 20:00 Docusate Sodium (Colace) 100 mg Q12H PRN PO CONSTIPATION; Start 06/30/18 at 20:00 Magnesium Hydroxide (Milk Of Mag) 30 ml DAILY PRN PO CONSTIPATION; Start 06/30/18 at 20:00 Bisacodyl (Dulcolax Supp) 10 mg DAILY PRN [place] CONSTIPATION; Start 06/30/18 at 20:00 Aspirin (Halfprin) 81 mg DAILY PO Last administered on 07/05/18 08:28; Admin Dose 81 MG; Start 07/02/18 at 09:00 Nicotine (Nicoderm 21 Mg/ 24hr) 1 patch DAILY TRANSDERM Last administered on 07/05/18 08:26; Admin Dose 1 PATCH; Start 07/01/18 at 13:00 Diltiazem HCl (Cardizem) 30 mg Q6 PRN PO sustained hr>130; Start 07/01/18 at 12:30 Apixaban (Eliquis) 5 mg BID PO Last administered on 07/05/18at 08:28; Admin Dose 5 MG; Start 07/01/18 at 21:00 Fluticasone/ Vilanterol (Breo Ellipta 100-25 Mcg Inh) 1 inh DAILY INH Last administered on 07/05/18at 08:23; Admin Dose 1 INH; Start 07/02/18 at 11:30 Tiotropium [place] (Spiriva) 1 inh DAILY INH Last administered on 07/05/18 08:26; Admin Dose 1 INH; Start 07/02/18 at 11:30 Albuterol/ Ipratropium (Duoneb) 3 ml Q4H RESP THERAPY PRN HHN SHORTNESS OF BREATH; Start 07/02/18 at 15:00 Furosemide (Lasix) 40 mg DAILY@0600 PO Last administered on 07/05/18at 05:53; Admin Dose 40 MG; Start 07/04/18 at 06:00 Metoprolol Succinate (Toprol Xl) 50 mg BID PO Last administered on 07/05/18at 08:28; Admin Dose 50 MG; Start 07/03/18 at 21:00 Lisinopril (Zestril) 2.5 mg QHS PO Last administered on 07/04/18at 20:56; Admin Dose 2.5 MG; Start 07/03/18 at 21:00 Imaging Imaging PROCEDURE: XR Chest. CLINICAL INDICATION: Shortness of breath . TECHNIQUE: Single frontal chest x-ray. COMPARISON: CHEST 07/02/2018 FINDINGS: The lungs are clear of acute infiltrates, edema, effusions, or masses. Calcific atherosclerosis of the aorta is present.. Cardiomegaly is unchanged.. The o sseous structures are intact. IMPRESSION: No acute cardiopulmonary disease. Cardiomegaly with calcified aorta. RPTAT: GG .Dru Haynes MD, Date Time Electronically viewed and signed by .Dru Haynes MD, on 07/05/2018 10:15 .L/ CC: JUAN CARLOS WHEAT N'DEYE F Jul 05, 2018 11:58
[2018-07-05] MEDS: METOPROLOL 5 MG INJ IV PRN ×2 (12:18→22:28)
--- NOTE | 2018-07-05 12:29 | NUR ---
RN NOTES DR. JARRET VARGAS AND SAID PT. CAN BE D/C HOME W/ HOME HEALTH AND PORTABLE O2.
--- NOTE | 2018-07-05 12:30 | NUR ---
RN NOTES PT. HEART RATE WENT UP TO 130'S. DR. WHEAT IS AWARE AND SHE SAID TO GIVE THE PRN LOPRESSOR AND PT. CAN BE D/C HOME WHEN THE HEART RATE STABILIZE.
--- NOTE | 2018-07-05 13:48 | NUR ---
RN NOTES PER GISELLA CM H/H IS ALREADY ARRANGED AND PORTABLE O2 AT BED SIDE TO BE WITH PT.
--- NOTE | 2018-07-05 15:11 | NUR ---
RN NOTES SPOKED WITH DR. WHEAT AND INFORMED HER THAT PT. HEART RATE IS STILL ON 120"S. SHE SAID TO GIVE THE CARDIZEM 30MG PRN MED. GIVEN ORDERED.
[2018-07-05] MEDS: DILTIAZEM 30 MG TAB PO SCH ×2 (17:00→19:54)
--- NOTE | 2018-07-05 17:00 | PN ---
Date/Time of Note Date/Time of Note DATE: 07/05/18 TIME: 16:56 Assessment/Plan VTE Prophylaxis Risk score (from Ns)>0 risk: 2 SCD applied (from Ns): Yes Pharmacological prophylaxis: apixaban Lines/Catheters IV Catheter Type (from Nrsg): Saline Lock Urinary Cath still in place: No Assessment/Plan Hospital Course 73 yo with hypertension and new onset atrial fibrillation, today with more rapid rate. Assessment/Plan Impression: Afib with rapid rate, newly diagnosed on this admission Hypertension, controlled Recommendations: Check electrolytes and CBC Add diltiazem 30 mg qid (four times a day) with hold parameters Continue metoprolol, continue Eliquis Hold discharge and observe Case discussed with Dr. Daugherty Result Diagram: 07/04/1855707/04/18557 Subjective 24 Hr Interval Summary Free Text/Dictation Patient feels well, mild shortness of breath, no pain, no palpitations. Telemetry demonstrates afib at 130-140 bpm. Exam/Review of Systems Vital Signs Vitals Vital Signs Date Temp Pulse Resp B/P (MAP) Pulse Ox O2 O2 Flow FiO2 Time Delivery Rate 07/05/18 98.0 69 18 139/99 98 16:48 (112) 07/05/18 Nasal 1.0 09:08 Cannula Intake and Output 07/04/18 07/04/18 07/05/18 1515:00 23:00 07:00 IntakeIntake Total 450 ml 240 ml OutputOutput Total 750 ml 700 ml BalanceBalance -300 ml -460 ml Exam Constitutional: alert, oriented, other (thin) Psych: no complaints, nl mood/affect Head: normocephalic, atraumatic Eyes: nl conjunctiva, EOMI, nl lids, nl sclera ENMT: nl external ears & nose, nl lips & teeth Neck: supple; No jvd, No bruits Respiratory: clear to auscultation, normal air movement Cardiovascular: irregular rhythm; No jugular venous distention (JVD), No murmurs/extra sounds Gastrointestinal: soft, nl liver, spleen, non-tender Musculoskeletal: nl extremities to inspection Extremities: No edema Neurological: nl mental status, nl speech Skin: nl turgor; No rash or lesions Medications Medications Current Medications Metoprolol Tartrate (Lopressor) 5 mg Q6H PRN IV TACHYARDIA Last administered on 07/05/18at 12:18; Admin Dose 5 MG; Start 06/30/18 at 20:00 IV Flush (NS 3 ml) 3 ml PER PROTOCOL IV ; Start 06/30/18 at 20:00 Ondansetron HCl (Zofran Inj) 4 mg Q6H PRN IV NAUSEA AND/OR VOMITING; Start 06/30/18 at 20:00 Nitroglycerin (Nitroglycerin (Sl Tab) 0.4 Mg) 1 tab Q5M PRN SL CHEST PAIN; Start 06/30/18 at 20:00 Acetaminophen (Tylenol Tab) 650 mg Q6H PRN PO PAIN LEVEL 1-3 OR FEVER; Start 06/30/18 at 20:00 Morphine Sulfate (morphine) 2 mg Q4H PRN IV PAIN LEVEL 7-10; Start 06/30/18 at 20:00 Docusate Sodium (Colace) 100 mg Q12H PRN PO CONSTIPATION; Start 06/30/18 at 20:00 Magnesium Hydroxide (Milk Of Mag) 30 ml DAILY PRN PO CONSTIPATION; Start 06/30/18 at 20:00 Bisacodyl (Dulcolax Supp) 10 mg DAILY PRN [place] CONSTIPATION; Start 06/30/18 at 20:00 Aspirin (Halfprin) 81 mg DAILY PO Last administered on 07/05/18at 08:28; Admin Dose 81 MG; Start 07/02/18 at 09:00 Nicotine (Nicoderm 21 Mg/ 24hr) 1 patch DAILY TRANSDERM Last administered on 07/05/18at 08:26; Admin Dose 1 PATCH; Start 07/01/18 at 13:00 Diltiazem HCl (Cardizem) 30 mg Q6 PRN PO sustained hr>130 Last administered on 07/05/18at 15:09; Admin Dose 30 MG; Start 07/01/18 at 12:30 Apixaban (Eliquis) 5 mg BID PO Last administered on 07/05/18at 08:28; Admin Dose 5 MG; Start 07/01/18 at 21:00 Fluticasone/ Vilanterol (Breo Ellipta 100-25 Mcg Inh) 1 inh DAILY INH Last administered on 07/05/18at 08:23; Admin Dose 1 INH; Start 07/02/18 at 11:30 Tiotropium [place] (Spiriva) 1 inh DAILY INH Last administered on 07/05/18at 08:26; Admin Dose 1 INH; Start 07/02/18 at 11:30 Albuterol/ Ipratropium (Duoneb) 3 ml Q4H RESP THERAPY PRN HHN SHORTNESS OF BREATH; Start 07/02/18 at 15:00 Metoprolol Succinate (Toprol Xl) 50 mg BID PO Last administered on 07/05/18at 08:28; Admin Dose 50 MG; Start 07/03/18 at 21:00 Lisinopril (Zestril) 2.5 mg QHS PO Last administered on 07/04/18at 20:56; Admin Dose 2.5 MG; Start 07/03/18 at 21:00 Diltiazem HCl (Cardizem) 30 mg QID PO ; Start 07/05/18 at 17:00; Status UNV JOSEF RODARTE Jul 05, 2018 16:59
--- NOTE | 2018-07-05 17:05 | NUR ---
RN NOTES DR. RODARTE CAME AND VISITED THE PT. SHE IS INFORMED REGARDING THE HEART RATE TREND OF THE PT. THAT IT REACHES 150'S. SHE ALSO SPOKED WITH DR. WHEAT AND SHE SAID THAT DISCHARGE IS HOLD.
--- NOTE | 2018-07-05 18:30 | NUR ---
EOSS PT. IS ALERT AND ORIENTED ABLE TO MAKE NEEDS KNOWN, CALL LIGHT W/IN REACH. NO SOB OR DISTRESS NOTED. KEPT CLEAN AND DRY. WILL CONTINUE TO MONITOR.
[2018-07-05] MEDS: LISINOPRIL 5 MG TAB PO SCH (19:55)
[2018-07-06] VITALS (12 sets, daily range): BP systolic 113–175; BP diastolic 61–89; PULSE 57–137; RESP 18–19
--- NOTE | 2018-07-06 06:47 | NUR ---
EOSS Pt is alert but confused. Unable to determine where he is and the date. AOx1. Dr. Daugherty notified and aware of pt's cognition. VS stable. HR is still irregular ranging from 55-130. Afib on monitor. PRN metoprolol given for HR >110. Pt placed back on 2L O2 nasal cannula due to low pO2 result on ABG as per Dr. Daugherty's order. No complaints of pain. Fall precautions implemented. Hourly rounding done. Needs attended. Will endorse to AM shift.
[2018-07-06] MEDS: NICOTINE (21 MG/24 HR) PATCH TRANSDERM SCH (09:17)
[2018-07-06] MEDS: DILTIAZEM 30 MG TAB PO SCH ×3 (09:22→17:42)
[2018-07-06] MEDS: ASPIRIN (EC) 81 MG TAB PO SCH (09:22)
[2018-07-06] MEDS: APIXABAN 5 MG TABLET PO SCH ×2 (09:22→21:09)
[2018-07-06] MEDS: METOPROLOL (XL) 50 MG TAB PO SCH (09:22)
[2018-07-06] MEDS: TIOTROPIUM 18 MCG CAPSULE INHA DEV INH SCH (09:22)
[2018-07-06] MEDS: FLUTICASONE/VILANTEROL 100-25 INH SCH (09:23)
[2018-07-06] MEDS ORDERED: NICO-546 TRANSDERM (09:41)
[2018-07-06] MEDS ORDERED: DILT180C72 PO (09:41)
[2018-07-06] MEDS ORDERED: DILTIAZEM (CD) 180 MG CAP PO SCH (10:00)
[2018-07-06] MEDS ORDERED: METOPROLOL 50 MG TAB PO ONE (14:00)
--- NOTE | 2018-07-06 15:22 | CONS ---
Date/Time of Note Date/Time of Note DATE: 07/06/18 TIME: 15:19 Assessment/Plan Assessment/Plan Assessment/Plan Newly diagnosed atrial fibrillation Acute decompensated systolic congestive heart failure Renal dysfunction Hypertension Cardiomyopathy with ejection fraction 50% Mitral and tricuspid valve regurgitation NSVT No ischemia nuclear cardiac perfusion study 07/03/2018 -Patient still with difficult to control atrial fibrillation. Has been started on Cardizem, would increase dose of beta-noel. -Given elevated potassium, would DC WESLEY inhibitor -Continue anticoagulation no contraindication -Could consider addition of digoxin heart rate not improved. Result Diagram: 07/05/18 1711 07/06/18 0552 Results 24hrs Laboratory Tests Test 07/05/18 17:08 07/05/18 17:11 07/05/18 22:21 07/06/18 05:52 Magnesium Level 2.2 2.2 White Blood Count 6.4 # Red Blood Count 5.49 Hemoglobin 17.3 Hematocrit 51.5 Mean Corpuscular 93.8 Volume Mean Corpuscular 31.5 Hemoglobin Mean Corpuscular 33.6 Hemoglobin Concen t Red Cell 15.2 H Distribution Width Platelet Count 120 L Mean Platelet 12.0 H Volume Immature 1.700 H Granulocytes % Neutrophils % 79.0 H Lymphocytes % 12.6 L Monocytes % 6.4 Eosinophils % 0.0 Basophils % 0.3 Nucleated Red 0.0 Blood Cells % Immature 0.110 H Granulocytes # Neutrophils # 5.1 Lymphocytes # 0.8 Monocytes # 0.4 Eosinophils # 0.0 Basophils # 0.0 Nucleated Red 0.0 Blood Cells # Sodium Level 137 136 Potassium Level 4.6 5.5 H Chloride Level 99 101 Carbon Dioxide 29 28 Level Anion Gap 9 7 Blood Urea 35 H 40 H Nitrogen Creatinine 1.12 1.19 Est Glomerular Filtrat Rate mL/min Glucose Level 95 94 Calcium Level 9.4 9.3 Blood Gas Blood arterial Specimen Source Arterial Blood 07/05/2018 10:50: Date Drawn 36 PM Arterial Blood pH 7.490 H (Temp corrected) Arterial Blood 24.7 L pCO2 (Temp correct) Arterial Blood 47.9 *L pO2 (Temp corrected) Arterial Blood 18.4 L HCO3 Arterial Blood -2.7 Base Excess Arterial Blood 84.7 L Oxygen Saturation Pranav Test ACCEPTAB Arterial Blood Right Radial Gas Puncture Site Arterial 0.3 Blood Carboxyhemo globin Arterial Blood 0.3 Methemoglobin Blood Gas A-a O2 72.3 H Differential Oxyhemoglobin 84.2 L Percent Blood Gas 37.0 Temperature Blood Gas Actual 20 Respiration Rate Blood Gas ROOM AIR Modality FiO2 21.0 Blood Gas Mio Hair RN Critical Value Read Back Blood Gas JLuz Maria Notified Whom Blood Gas 07/05/2018 11:11: Notified Time 03 PM Consultation Date/Type/Reason Admit Date/Time Jun 30, 2018 at 18:59 Initial Consult Date Type of Consult cv 24 HR Interval Summary Free Text/Dictation Denies palpitations, shortness of breath is less with ambulation. Denies chest pain or dizziness Exam/Review of Systems Vital Signs Vitals Vital Signs Date Temp Pulse Resp B/P (MAP) Pulse Ox O2 O2 Flow FiO2 Time Delivery Rate 07/06/18 137 12:02 07/06/18 98.4 18 145/67 97 11:01 (93) 07/06/18 2.0 27 03:13 07/05/18 Nasal 09:08 Cannula Intake and Output 07/05/18 07/05/18 07/06/18 1515:00 23:00 07:00 IntakeIntake Total 700 ml 240 ml OutputOutput Total 1000 ml 300 ml BalanceBalance -300 ml -60 ml Exam nad Constitutional: alert, oriented Respiratory: other (Coarse breath sounds bilaterally, no wheezing) Cardiovascular: irregular rhythm (S1-S2 heard) Gastrointestinal: soft, non-tender, bowel sounds Extremities: edema (Trace) Medications Medications Current Medications Metoprolol Tartrate (Lopressor) 5 mg Q6H PRN IV TACHYARDIA Last administered on 07/05/18at 22:28; Admin Dose 5 MG; Start 06/30/18 at 20:00 IV Flush (NS 3 ml) 3 ml PER PROTOCOL IV ; Start 06/30/18 at 20:00 Ondansetron HCl (Zofran Inj) 4 mg Q6H PRN IV NAUSEA AND/OR VOMITING; Start 06/30/18 at 20:00 Nitroglycerin (Nitroglycerin (Sl Tab) 0.4 Mg) 1 tab Q5M PRN SL CHEST PAIN; Start 06/30/18 at 20:00 Acetaminophen (Tylenol Tab) 650 mg Q6H PRN PO PAIN LEVEL 1-3 OR FEVER; Start 06/30/18 at 20:00 Morphine Sulfate (morphine) 2 mg Q4H PRN IV PAIN LEVEL 7-10; Start 06/30/18 at 20:00 Docusate Sodium (Colace) 100 mg Q12H PRN PO CONSTIPATION; Start 06/30/18 at 20:00 Magnesium Hydroxide (Milk Of Mag) 30 ml DAILY PRN PO CONSTIPATION; Start 06/30/18 at 20:00 Bisacodyl (Dulcolax Supp) 10 mg DAILY PRN [place] CONSTIPATION; Start 06/30/18 at 20:00 Nicotine (Nicoderm 21 Mg/ 24hr) 1 patch DAILY TRANSDERM Last administered on 07/06/18 09:17; Admin Dose 1 PATCH; Start 07/01/18 at 13:00 Apixaban (Eliquis) 5 mg BID PO Last administered on 07/06/18 09:22; Admin Dose 5 MG; Start 07/01/18 at 21:00 Fluticasone/ Vilanterol (Breo Ellipta 100-25 Mcg Inh) 1 inh DAILY INH Last administered on 07/06/18at 09:23; Admin Dose 1 INH; Start 07/02/18 at 11:30 Tiotropium [place] (Spiriva) 1 inh DAILY INH Last administered on 07/06/18at 09:22; Admin Dose 1 INH; Start 07/02/18 at 11:30 Albuterol/ Ipratropium (Duoneb) 3 ml Q4H RESP THERAPY PRN HHN SHORTNESS OF BREATH; Start 07/02/18 at 15:00 Lisinopril (Zestril) 2.5 mg QHS PO Last administered on 07/05/18at 19:55; Admin Dose 2.5 MG; Start 07/03/18 at 21:00 Diltiazem HCl (Cardizem Cd) 180 mg DAILY PO Last administered on 07/06/18at 11:03; Admin Dose 180 MG; Start 07/06/18 at 10:00 Metoprolol Succinate (Toprol Xl) 200 mg BID PO ; Start 07/06/18 at 21:00 Jose Bojorquez DO Jul 06, 2018 15:22
--- NOTE | 2018-07-06 17:10 | NUR ---
Patient's heart rate in the 120's or higher. MD notified, one time dose of cardizem 180 given. Heart rate stayed in 120's, MD notified, one time dose of metoprolol given with daily dose raised to 100mg effective 2100. Patient continued to have tachycardia. Patient seen by consulting mixing engineer, Dr. Bojorquez, meds adjusted. Primary MD, Dr. Vazquez notified, discharge cancelled, patient made aware. Will continue to monitor.
[2018-07-06] MEDS: METOPROLOL (XL) 100 MG TAB PO SCH (21:00)
[2018-07-06] MEDS ORDERED: METOPROLOL (XL) 100 MG TAB PO SCH (21:00)
[2018-07-07] VITALS: BP 121/84; PULSE 62; PULSE 72; RESP 18
[2018-07-07 00:03] VITALS: BP 130/70; PULSE 71; RESP 18
[2018-07-07] MEDS: DILTIAZEM 30 MG TAB PO SCH ×3 (00:11→10:01)
[2018-07-07 04:00] VITALS: PULSE 72
[2018-07-07 04:23] VITALS: BP 107/78; PULSE 72; RESP 20
--- NOTE | 2018-07-07 06:26 | PN ---
DATE: 07/06/2018 SUBJECTIVE: The patient reports doing well. No chest pain, no palpitations. PHYSICAL EXAMINATION: VITAL SIGNS: Stable except heart rate of 109. NECK: Supple. LUNGS: Mild rhonchi. CARDIAC: Irregularly irregular rhythm with rapid rate. ABDOMEN: Soft, nontender, nondistended. Normoactive bowel sounds. EXTREMITIES: No clubbing, cyanosis or edema. NEUROLOGICAL: Nonfocal. ASSESSMENT: 1. Atrial fibrillation with rapid ventricular rate. 2. Syncopal episodes, most likely due to atrial fibrillation. 3. Hypertension. 4. Acute kidney injury. 5. Ascending aorta aneurysm of incidental finding. 6. Chronic smoker. 7. T11 compression fracture. PLAN: 1. Continue metoprolol. 2. Continue Lasix. 3. Start Cardizem-CD 180 mg daily. 4. Discharge planning if rate is well controlled. 5. Cardiology and pulmonary followup. Dictated By: AMMON MORALES/CLINTON Conf#: [id number] DID#: [id number] CC: JUAN CARLOS WHEAT MD; KOSTA KELSEY DO;*EndCC*
--- NOTE | 2018-07-07 06:34 | NUR ---
END OF SHIFT REPORT CARDIAC MONITORING STILL AFIB, NOW RATE CONTROLLED. AVERAGE 70-90. LOWEST AT 57/MIN. HAD ONE EPISODE OF 5 BEATS UNSUSTAINED VTACH. METOPROLOL NOT GIVEN LAST NIGHT (HR@57); CARDIZEM 30 MG NOT GIVEN THIS MORNING (SBP 105). O2 SAT DIPPED TO 83% ON 2 L. BUMPED UP TO 4L (SATURATING NOW AT 96%) NO COMPLAINT.
[2018-07-07 07:31] VITALS: BP 123/82; PULSE 58; RESP 18
[2018-07-07 08:48] VITALS: PULSE 68
[2018-07-07] MEDS: FLUTICASONE/VILANTEROL 100-25 INH SCH (09:00)
[2018-07-07] MEDS ORDERED: METO-336 PO (09:45)
[2018-07-07] MEDS: APIXABAN 5 MG TABLET PO SCH (10:01)
[2018-07-07] MEDS: METOPROLOL (XL) 100 MG TAB PO SCH (10:02)
[2018-07-07] MEDS: TIOTROPIUM 18 MCG CAPSULE INHA DEV INH SCH (10:02)
[2018-07-07] MEDS: NICOTINE (21 MG/24 HR) PATCH TRANSDERM SCH (10:02)
--- NOTE | 2018-07-07 11:15 | NUR ---
DC Notes patient awake in bed, aox4 able to make needs known, all due medications given, needs attended. dc packet and prescriptions were given and discussed. IV access removed. pt stable upon dc. belongings given back to the pt.
--- NOTE | 2018-07-08 08:33 | DS ---
DATE OF ADMISSION: 06/30/2018 DATE OF DISCHARGE: 07/07/2018 DISCHARGE DIAGNOSES: 1. Syncopal episode, likely related to rapid atrial fibrillation. 2. Atrial fibrillation with rapid ventricular response, rate controlled. 3. Hypertension. 4. Acute kidney injury, improved. 5. Ascending aortic aneurysm measuring 4.7 cm. 6. Chronic smoker. 7. T11 compression fracture, chronic. HOSPITAL COURSE: A 33-year-old male who presented with syncopal episode. CT of the head was negativ e. There were no neurological deficits. The patient was found to have atrial fibrillation with rapi d ventricular response. He was seen in consultation by Dr. Bojorquez. A stress test was negative for a cute ischemia. The patient was started on a beta noel and a calcium channel noel. 2D echo annabelle wed diastolic dysfunction with ejection fraction of 50%. His heart rate was well controlled after be ta noel was increased. He is now in stable condition for discharge. PLAN: Discharge to home with home health nurse. MEDICATIONS UPON DISCHARGE: 1. Eliquis 5 mg p.o. b.i.d. 2. Aspirin 81 mg p.o. daily. 3. Cardizem 180 mg p.o. daily. 4. Metoprolol 200 mg p.o. b.i.d. 5. Nicoderm patch 21 mg one daily for 7 days. 6. Spiriva 18 mcg one inhalation daily. 7. Lasix 20 mg p.o. daily. 8. Lisinopril 2.5 mg p.o. at bedtime. FOLLOWUP: Follow-up with PCP in one week. Dictated By: AMMON MORALES/[place] Conf#: [id number] DID#: [id number] CC: KOSTA BOJORQUEZ DO; JUAN CARLOS WHEAT MD;*EndCC*
== END 2018-07-07 10:52 | disposition home health service (06) | DRG 308 ==
LOC: E/R 14:40 → TEL 18:59
PROVIDERS: ADMIT Internal Medicine; ATTEND Internal Medicine
DX: I48.91 Unspecified atrial fibrillation (principal); I50.23 Acute on chronic systolic (congestive) heart failure; M48.54XA Collapsed vertebra, not elsewhere classified, thoracic region, initial encounter for fracture; I24.8 Other forms of acute ischemic heart disease; N17.9 Acute kidney failure, unspecified; I11.0 Hypertensive heart disease with heart failure; I47.2 Ventricular tachycardia; I71.4 Abdominal aortic aneurysm, without rupture; F17.200 Nicotine dependence, unspecified, uncomplicated; I25.10 Atherosclerotic heart disease of native coronary artery without angina pectoris; R09.02 Hypoxemia; R51 Headache
CPT/HCPCS: 36600; 70450; 71045; 71046; 71275; 78452; 80048; 80053; 80061; 80307; 82550; 82553; 82803; 83735; 83880; 84100; 84436; 84443; 84479; 84484; 85025; 85378; 85610; 85730; 90686; 93005; 93017; 93306; 96374; 96375; 96376; A9500; A9505; J1650; J1940; J2785; J3475; J7030; Q9967

== ENCOUNTER 2018-07-08 12:44 | Inpatient (IN) | payer OTHER ==
[~2018-07-08] VITALS: Ht 172.7 cm; Wt 60.0 kg
[~2018-07-08 12:44] MED LIST changes: -AMLO-147 PO; +APIX5TAB PO; +ASPI-1044 PO; -CLON-379 PO; +DILT180C72 PO; +FLUT1AER INH; +FURO20TA3 PO; +LISI-313 PO; +METO-319 PO; +METO-336 PO; +NICO-546 TRANSDERM; -PANT20TA2 PO; +TIOT18CA INH
[2018-07-08] MEDS ORDERED: SOD CHLORIDE 0.9% 500 ML IV STA (13:12)
[2018-07-08] MEDS ORDERED: DEXTROSE 50% 50 ML SYRINGE ONE ×2 (13:28→14:04)
--- NOTE | 2018-07-08 13:50 | ERD ---
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 HPI This is a 73-year-old male with a past medical history of hypertension, COPD, atrial fibrillation on Cardizem and Eliquis who is presenting after a ground- level fall while walking at [facility]. According to the staff at [facility], they are concerned about the previous been some brief loss of consciousness and unresponsiveness. Upon EMS arrival, the staff was performing CPR, but the patient was clearly moving and looking around.. CPR was stopped. The patient is alert and oriented and feels fine was alert and oriented with no complaints. A blood sugar was checked on the scene and found to be "low" on the monitor. The patient appears dehydrated, and the EMS crew had difficulty with access. The patient did not receive any blood sugar prior to arrival to the emergency department. The patient currently has no complaints. He feels well. The patient denies feeling sick recently. The patient denies fever or chills. The patient has had no headache or vision changes. The patient does not endorse neck or back pain. The patient denies lightheadedness or dizziness. The patient has had no chest pain or trouble breathing. The patient denies nausea or vomiting. The patient denies abdominal pain. The patient denies changes to bowel movements or urination. The patient has had no focal deficits. The patient has had no we akness or numbness or tingling to the face or extremities. ROS All systems reviewed and are negative except as per history of present illness. Medications Home Meds Active Scripts Metoprolol Succinate* (Toprol XL*) 100 Mg Tab.sr.24h, 200 MG PO BID for 30 Days Prov:AMMON CASTILLO MD 07/07/18 Diltiazem Hcl* (Cardizem CD*) 180 Mg Cap.sr.24h, 180 MG PO DAILY, #30 CAP Prov:AMMON CASTILLO MD 07/06/18 Furosemide* (Furosemide*) 20 Mg Tablet, 20 MG PO DAILY for 30 Days, TAB 3 Refills Prov:JUAN CARLOS WHEAT 07/04/18 Fluticasone-Vilanterol (Breo Ellipta Inhaler) 100-25 Mcg/Actuation Aer.pow.ba, 1 INH INH DAILY, #1 3 Refills Prov:JUAN CARLOS WHEAT 07/04/18 Aspirin Delayed Release (Aspirin Delayed Release) 81 Mg Tablet.dr, 81 MG PO DAILY for 30 Days, 3 Refills Prov:JUAN CARLOS WHEAT Azar 07/04/18 Lisinopril* (Lisinopril*) 5 Mg Tablet, 2.5 MG PO QHS for 30 Days, TAB 3 Refills 1/2 tab daily Prov:JARRETJUAN CARLOS Askew 07/04/18 Apixaban* (Eliquis*) 5 Mg Tablet, 5 MG PO BID for 30 Days, TAB 3 Refills Prov:JARRETJUAN CARLOS 07/04/18 Tiotropium [place]* (Spiriva*) 18 Mcg Cap.w.dev, 1 INH INH DAILY, #1 3 Refills Prov:JARRETCarlySANDRA Azar 07/04/18 Discontinued Reported Medications Rjscpomjfh-Eechyszfra-OWDK (Tribenzor) 40-10-25 Mg Tablet, 1 TAB PO DAILY, TAB 06/30/18 Discontinued Scripts Nicotine* (Nicotine* Patch) 21 mg/day Patch, 1 PATCH TRANSDERM DAILY for 7 Days Prov:AMMON CASTILLO MD 07/06/18 Metoprolol Succinate* (Toprol XL*) 50 Mg Tab.er.24h, 50 MG PO BID for 30 Days, 3 Refills Prov:JARRETCarlySAGELENNY Askew 07/04/18 Allergies Allergies: Coded Allergies: No Known Drug Allergies (Verified Allergy, Unknown, 07/08/18) PMhx/Soc History of Surgery: No Anesthesia Reaction: No Hx Neurological Disorder: No Hx Respiratory Disorders: Yes (COPD) Hx Cardiac Disorders: Yes (Hypertension, atrial fibrillation on Cardizem and Eliquis) Hx Psychiatric Problems: No Hx Miscellaneous Medical Probl: No Hx Alcohol Use: Yes (occasionaly) Hx Substance Use: No Hx Tobacco Use: Yes FmHx Family History: No diabetes Physical Exam Vitals Vital Signs Date Temp Pulse Resp B/P (MAP) Pulse Ox O2 O2 Flow FiO2 Time Delivery Rate 07/08/18 110 22 140/99 95 Nasal 2.0 17:34 (113) Cannula 07/08/18 100 22 144/95 100 Nasal 2.0 16:02 (111) Cannula 07/08/18 110 22 145/84 Room Air 14:25 (104) 07/08/18 94.8 103 18 141/96 13:10 (111) Physical Exam Const: No apparent distress, well-developed. Thin appearing. Head: Normocephalic, Atraumatic. Eyes: Normal Conjunctiva. Extraocular movements intact. Pupils equal, round and reactive to light ENT: Normal External Ears, Nose and Mouth. Dry mucous membranes. Neck: Full range of motion. No meningismus. Resp: Clear to auscultation bilaterally, No wheezes, rales or rhonchi Cardio: Irregularly irregular rhythm. Mild tachycardia. No murmurs, rubs or gallops Abd: Soft, non tender, non distended. Normal bowel sounds Skin: No petechiae or rashes Back: No midline tenderness. No CVA tenderness Ext: No cyanosis, or edema Neur: Awake and alert. Cranial nerves intact. No facial droop. Normal strength, sensation and coordination. Psych: Normal Mood and Affect Result Diagram: 07/08/18 1346 07/08/18 1346 Results 24 hrs Laboratory Tests Test 07/08/18 13:17 07/08/18 13:46 07/08/18 14:01 07/08/18 14:02 Bedside Glucose < 13 mg/dL 14 mg/dL 23 mg/dL White Blood Count 9.0 10^3/ul Red Blood Count 4.96 10^6/ul Hemoglobin 15.5 g/dl Hematocrit 48.4 % Mean Corpuscular 97.6 fl Volume Mean Corpuscular 31.3 pg Hemoglobin Mean Corpuscular 32.0 g/dl Hemoglobin Concent Red Cell 16.4 % Distribution Width Platelet Count 142 10^3/UL Mean Platelet 11.8 fl Volume Immature 2.500 % Granulocytes % Neutrophils % 78.8 % Lymphocytes % 13.5 % Monocytes % 4.9 % Eosinophils % 0.0 % Basophils % 0.3 % Nucleated Red Blood 1.9 /100WBC Cells % Immature 0.220 10^3/ul Granulocytes # Neutrophils # 7.1 10^3/ul Lymphocytes # 1.2 10^3/ul Monocytes # 0.4 10^3/ul Eosinophils # 0.0 10^3/ul Basophils # 0.0 10^3/ul Nucleated Red Blood 0.2 10^3/ul Cells # Prothrombin Time 30.7 Sec Prothrombin Time 2.4 Ratio INR International 2.94 Normalized Ratio Sodium Level 140 mmol/L Potassium Level 6.2 mmol/L Chloride Level 102 mmol/L Carbon Dioxide 18 mmol/L Level Anion Gap 20 Blood Urea Nitrogen 71 mg/dl Creatinine 2.23 mg/dl Est Glomerular mL/min Filtrat Rate mL/min Glucose Level 180 mg/dl Calcium Level 9.1 mg/dl Troponin I 0.103 ng/ml Test 07/08/18 14:22 Bedside Glucose 27 mg/dL Current Medications Medications Dose Sig/Percy Start Time Status Last (Trade) Ordered Route PRN Stop Time Admin Dose Reason Admin Sodium 500 ml @ Q1H STAT 07/08/18 DC 07/08/18 Chloride 500 mls/hr IV 13:12 13:54 07/08/18 14:11 Dextrose 50 ml STK-MED 07/08/18 DC (D50w ONCE .ROUTE 13:28 Syringe) 07/08/18 13:29 Dextrose 50 ml STK-MED 07/08/18 DC (D50w ONCE .ROUTE 14:04 Syringe) 07/08/18 14:05 Dextrose 50 ml ONCE ONCE 07/08/18 DC 07/08/18 (D50w IV 14:30 14:24 Syringe) 07/08/18 14:31 Procedures/MDM MDM The patient's presentation warrants further investigation. Previous medical records, if available, were reviewed. LABS The patient's laboratory testing was obtained and reviewed. No emergent treatment was required unless described below. CBC: No E/o of systemic infection or severe anemia or thrombocytopenia BMP: Elevated BUN and creatinine, double his baseline concerning for acute on chronic kidney disease. Normal blood sugar, no DKA. Anion gap metabolic acidosis, likely related to starvation ketosis from poor nutrition and failure to thrive. PT/INR: No E/o significant coagulopathy Troponin: No E/o acute ischemia EKG EKG read by me: Rate/Rhythm: Irregularly irregular rhythm, mild tachycardia indicating atrial fibrillation with a mild rapid ventricular response Intervals: No P waves. Normal QRS and QTc. [place]: Normal Impression: A. fib with RVR. T wave inversions with less than [address] depressions in the lateral leads, concerning for possible lateral ischemia. IMAGING Imaging and Radiology interpretation reviewed. CXR FINDINGS: The lungs are clear. There is no pleural effusion or pneumothorax. The cardiac silhouette is prominent, unchanged. The mediastinal contours are within normal limits. The aorta is tortuous and atherosclerotic. IMPRESSION: No acute pulmonary abnormality. Electronically viewed and signed by R-Rana Fattahi, Physician on 07/08/2018 13:51 TREATMENT/DISPOSITION The patient presents after a syncopal event. The patient appears dehydrated and there is evidence of acute on chronic kidney injury. I am concerned about starvation ketosis and failure to thrive. I am concerned about the patient's ability to care for himself. The patient does have evidence of hyperkalemia, but his potassium is less than 6.2 and there is no evidence of peaked T waves on exam. The patient was given IV fluids in the emergency department which should help with this. I do not feel the patient requires emergent treatment of the hyperkalemia. The patient's Accu-Chek was also found to be very low, but he clinically did not appear to have a blood sugar below 20. The patient was given a dose of dextrose in the emergency department. The patient's BMP revealed a normal blood sugar despite persistent low Accu-Cheks. I do not believe that the Accu-Cheks are real. The patient does have atrial fibrillation with mild tachycardia indicating a mild rapid ventricular response. I do not feel this requires emergent treatment. The patient's heart rate will likely benefit from rehydration in the hospital. The patient's troponin is within normal limits and appears to be at his baseline from his recent studies during his admission 1-2 weeks ago. The patient's EKG does reveal nonspecific repolarization changes, which should be further assessed in the hospital with serial diagnostic tests. The patient is on endorse any chest pain or shortness of breath. I have decreased suspicion for acute coronary syndrome at this time. I do not see evidence of emergent heart block, Brugada syndrome or WPW. The patient has no heart murmurs or rales. I have low suspicion for hypertrophic cardiomyopathy. I do not see evidence of CHF. The patient does not endorse any chest or pleuritic pain. The history is negative for bleeding or clotting disorders. The patient has not been involved in any recent prolonged trips or surgeries or hospitalizations. The patient has no calf tenderness or swelling. I have decreased suspicion for PE as the etiology of symptoms. The patient is not clinically orthostatic. The patient is not dizzy. I have decreased suspicion for vertigo. The patient has no signs of emergent or symptomatic anemia. The patient does not have any emergent electrolyte or metabolic emergencies. I have decrease suspicion for a thyroid disorder. The patient is not toxic appearing. I have decreased suspicion for an infectious etiology of symptoms. The patient has no focal deficits. The neurologic exam is reassuring. I have decreased suspicion for cerebral ischemia. There was no trauma or injury. There is no personal or family history of cerebral aneurysm. I have decreased suspicion for SAH or other ICH. I have low suspicion for temporal arteritis, cavernous venous thrombosis, subdural hematoma, epidural hematoma, meningitis. At this time, I feel that the patient requires admission for further evaluation and management. The patient will be admitted to [facility] in accordance with the patient's insurance. The patient was accepted by Dr. Walter at 6:30 PM on July 08, 2018. Disclaimer: Inadvertent spelling and grammatical errors are likely due to EHR/dictation software use and do not reflect on the overall quality of patient care. Note that the electronic time recorded on this note does not necessarily reflect the actual time of the patient encounter. Departure Diagnosis: Primary Impression: Syncope and collapse Additional Impressions: Hypoglycemia Fall with no significant injury Encounter type: initial encounter Qualified Codes: W19.XXXA - Unspecified fall, initial encounter Hyperkalemia Acute kidney injury Failure to thrive Failure to thrive age range: in adult Qualified Codes: R62.7 - Adult failure to thrive Dehydration Condition: Serious PRO CARLSON MD Jul 08, 2018 13:50
[2018-07-08] MEDS ORDERED: DEXTROSE 50% 50 ML SYRINGE IV ONE (14:30)
[2018-07-08] MEDS ORDERED: ACETAMINOPHEN 325 MG TAB PO PRN ×2 (18:30→22:30)
[2018-07-08] MEDS ORDERED: ONDANSETRON 4 MG INJ IV PRN (18:30)
[2018-07-08 20:00] VITALS: BP 133/87; PULSE 119; PULSE 66; RESP 18
[2018-07-08 20:03] VITALS: Ht 172.7 cm; Wt 60.0 kg
[2018-07-08] MEDS ORDERED: NACL 0.9% 3 ML SYG IV SCH (22:30)
[2018-07-08] MEDS ORDERED: ONDANSETRON 4 MG TAB PO PRN (22:30)
[2018-07-08] MEDS ORDERED: DOCUSATE SODIUM 100 MG CAP PO PRN (22:30)
[2018-07-08] MEDS ORDERED: MAGNESIUM HYDROXIDE 30ML CUP PO PRN (22:30)
[2018-07-08] MEDS: DEXTROSE 5%-0.9% NACL 1,000 ML IV SCH (23:02)
[2018-07-08] MEDS: APIXABAN 5 MG TABLET PO SCH (23:02)
[2018-07-08] MEDS: FAMOTIDINE 20 MG TAB PO SCH (23:02)
[2018-07-08] MEDS: METOPROLOL (XL) 100 MG TAB PO SCH (23:03)
[2018-07-09] VITALS (10 sets, daily range): BP systolic 123–146; BP diastolic 67–92; PULSE 54–119; RESP 18–20
[2018-07-09] MEDS: APIXABAN 5 MG TABLET PO SCH ×2 (08:33→20:50)
[2018-07-09] MEDS: ASPIRIN (EC) 81 MG TAB PO SCH (08:33)
[2018-07-09] MEDS: METOPROLOL (XL) 100 MG TAB PO SCH ×2 (08:33→20:50)
[2018-07-09] MEDS: DEXTROSE 5%-0.9% NACL 1,000 ML IV SCH ×2 (08:44→19:44)
[2018-07-09] MEDS ORDERED: DILTIAZEM (CD) 180 MG CAP PO SCH (09:00)
[2018-07-09] MEDS: FLUTICASONE/VILANTEROL 100-25 INH SCH (09:00)
--- NOTE | 2018-07-09 10:48 | HP ---
DATE OF ADMISSION: 07/08/2018 CHIEF COMPLAINT: Ground level fall. HISTORY OF PRESENT ILLNESS: A 73-year-old male with chronic atrial fibrillation and hypertension, re cently discharged from [facility], was brought into the emergency room after he had a ground level fall at [facility]. The patient denies any syncopal episode. He denies any associated ches t pain or shortness of breath. He was found to be hypoglycemic in the field. Blood sugars in the ER were as low as 14. His mental status improved after he received D50 and placed on D5. Patient was also noted to have acute kidney injury with BUN of 71 and creatinine of 2.23. PAST MEDICAL HISTORY: 1. COPD. 2. Hypertension. 3. Chronic atrial fibrillation. 4. Recent syncopal episodes. MEDICATIONS PRIOR TO ADMISSION: 1. Spiriva. 2. Eliquis. 3. Diltiazem. 4. Lisinopril. 5. Metoprolol. 6. Aspirin. 7. Lasix. SOCIAL HISTORY: The patient has remote history of heavy tobacco use. He denies alcohol. PHYSICAL EXAMINATION: GENERAL: Well-developed, well-nourished male who is in no apparent distress. VITAL SIGNS: Blood pressure 119/66, pulse is 118 and he is afebrile. HEENT: Extraocular muscles intact. Pupils equal and reactive to light bilaterally. Sclerae are ani cteric. Oropharynx is clear and moist. NECK: Supple, no JVD, no carotid bruits. LUNGS: Clear to auscultation bilaterally. CARDIAC: Irregularly irregular. No murmurs or gallops. ABDOMEN: Soft, nontender, nondistended, normoactive bowel sounds. EXTREMITIES: No clubbing, cyanosis, or edema. NEUROLOGICAL: Grossly nonfocal. LABORATORY DATA: Sodium 144, potassium 4.8, chloride 108, bicarbonate 25, BUN 76, creatinine is 1.85 . White blood cell count 7.7, hemoglobin 15, platelet count is 132,000. ASSESSMENT: 1. A 73-year-old male with a ground level fall due to hypoglycemic reaction. 2. Dehydration. 3. Acute kidney injury. 4. Hyperkalemia, resolved. 5. Chronic obstructive pulmonary disease. 6. Chronic atrial fibrillation. 7. Hypertension. PLAN: Place in tele observation. Continue IV fluid, hold Lasix and WESLEY inhibitor. Resume other arti e medications. Dictated By: AMMON MORALES/CLINTON Conf#: [id number] DID#: [id number]
--- NOTE | 2018-07-09 13:06 | CONS ---
Assessment/Plan Assessment/Plan Assessment/Plan (Daily) Assessment: 1) Fall versus syncope 2) chronic afib now with RVR 3) LV dysfunction 4) no gross fluid overload 5) no ischemia in recent stress test 6) HTN Plan: 1) will dc cardizem given LV dysfunction 2) will add digoxin 3) will consider amiodarone 4) carotid duplex pending Consultation Date/Type/Reason Admit Date/Time Jul 08, 2018 at 18:29 Type of Consult Cardiology Date/Time of Note DATE: 07/09/18 TIME: 13:01 Hx of Present Illness patient admitted with fall versus syncope. states he had a mechanical fall and "tripped over his socks", where upon "EMS just took him", no chest pain or sob, but it is not clear as to how reliable the patient's recollection of events is. Respiratory: no complaints Cardiovascular: no complaints Gastrointestinal: no complaints Musculoskeletal: no complaints Skin: no complaints Past Medical History Medical History: high cholesterol, hypertension, renal disease Home Meds Active Scripts Metoprolol Succinate* (Toprol XL*) 100 Mg Tab.sr.24h, 200 MG PO BID for 30 Days Prov:AMMON CASTILLO MD 07/07/18 Diltiazem Hcl* (Cardizem CD*) 180 Mg Cap.sr.24h, 180 MG PO DAILY, #30 CAP Prov:AMMON CASTILLO MD 07/06/18 Furosemide* (Furosemide*) 20 Mg Tablet, 20 MG PO DAILY for 30 Days, TAB 3 Refills Prov:JUAN CARLOS WHEAT 07/04/18 Fluticasone-Vilanterol (Breo Ellipta Inhaler) 100-25 Mcg/Actuation Aer.pow.ba, 1 INH INH DAILY, #1 3 Refills Prov:JUAN CARLOS WHEAT 07/04/18 Aspirin Delayed Release (Aspirin Delayed Release) 81 Mg Tablet.dr, 81 MG PO DAILY for 30 Days, 3 Refills Prov:JUAN CARLOS WHEAT 07/04/18 Lisinopril* (Lisinopril*) 5 Mg Tablet, 2.5 MG PO QHS for 30 Days, TAB 3 Refills 1/2 tab daily Prov:JUAN CARLOS WHEAT 07/04/18 Apixaban* (Eliquis*) 5 Mg Tablet, 5 MG PO BID for 30 Days, TAB 3 Refills Prov:JARRETJUAN CARLOS Askew 07/04/18 Tiotropium [place]* (Spiriva*) 18 Mcg Cap.w.dev, 1 INH INH DAILY, #1 3 Refills Prov:JARRETJUAN CARLOS Askew 07/04/18 Discontinued Reported Medications Dufvghiasl-Zodbqncneq-NSLZ (Tribenzor) 40-10-25 Mg Tablet, 1 TAB PO DAILY, TAB 06/30/18 Discontinued Scripts Nicotine* (Nicotine* Patch) 21 mg/day Patch, 1 PATCH TRANSDERM DAILY for 7 Days Prov:AMMON CASTILLO MD 07/06/18 Metoprolol Succinate* (Toprol XL*) 50 Mg Tab.er.24h, 50 MG PO BID for 30 Days, 3 Refills Prov:JARRETJUAN CARLOS Azar 07/04/18 Medications Current Medications IV Flush (NS 3 ml) 3 ml PER PROTOCOL IV ; Start 07/08/18 at 22:30 Ondansetron HCl (Zofran Tab) 4 mg Q6H PRN PO nausea; Start 07/08/18 at 22:30 Acetaminophen (Tylenol Tab) 650 mg Q6H PRN PO fever; Start 07/08/18 at 22:30 Docusate Sodium (Colace) 100 mg Q12H PRN PO CONSTIPATION; Start 07/08/18 at 22:30 Magnesium Hydroxide (Milk Of Mag) 30 ml DAILY PRN PO indigestion; Start 07/08/18 at 22:30 Famotidine (Pepcid) 20 mg Q24H PO Last administered on 07/08/18at 23:02; Admin Dose 20 MG; Start 07/08/18 at 23:00 Dextrose/Sodium Chloride 1,000 ml @ 100 mls/hr Q10H IV Last administered on 07/09/18at 08:44; Admin Dose 100 MLS/HR; Start 07/08/18 at 23:00 Apixaban (Eliquis) 5 mg BID PO Last administered on 07/09/18at 08:33; Admin Dose 5 MG; Start 07/08/18 at 23:00 Aspirin (Halfprin) 81 mg DAILY PO Last administered on 07/09/18at 08:33; Admin Dose 81 MG; Start 07/09/18 at 09:00 Fluticasone/ Vilanterol (Breo Ellipta 100-25 Mcg Inh) 1 inh DAILY INH ; Start 07/09/18 at 09:00 Metoprolol Succinate (Toprol Xl) 200 mg BID PO Last administered on 07/09/18at 08:33; Admin Dose 200 MG; Start 07/08/18 at 23:00 Tiotropium [place] (Spiriva) 1 inh DAILY INH ; Start 07/09/18 at 09:00 Digoxin (Digoxin) 0.125 mg DAILY@13 PO ; Start 07/09/18 at 13:00; Status UNV Allergies: Coded Allergies: No Known Drug Allergies (Verified Allergy, Unknown, 07/08/18) Past Surgical History Past Surgical Hx: no surgical history Family History Significant Family History: hypertension Social History Smoking Status: Current some day smoker Exam/Review of Systems Vital Signs Vitals Vital Signs Date Temp Pulse Resp B/P (MAP) Pulse Ox O2 O2 Flow FiO2 Time Delivery Rate 07/09/18 119 12:48 07/09/18 98.0 20 146/92 95 11:29 (110) 07/09/18 Nasal 07:48 Cannula 07/08/18 2.0 19:31 Intake and Output 07/08/18 07/08/18 07/09/18 1515:00 23:00 07:00 IntakeIntake Total 1100 ml BalanceBalance 1100 ml Exam Constitutional: alert Head: normocephalic, atraumatic Neck: supple Respiratory: clear to auscultation Cardiovascular: irregular rhythm Gastrointestinal: soft Musculoskeletal: nl extremities to inspection Extremities: normal pulses Labs Result Diagram: 07/09/18 0530 07/09/18 0530 Results 24hrs Laboratory Tests Test 07/08/18 13:17 07/08/18 13:46 07/08/18 14:01 07/08/18 14:02 Bedside Glucose < 13 *L 14 *L 23 *L White Blood Count 9.0 Red Blood Count 4.96 Hemoglobin 15.5 Hematocrit 48.4 Mean Corpuscular 97.6 Volume Mean Corpuscular 31.3 Hemoglobin Mean Corpuscular 32.0 Hemoglobin Concent Red Cell 16.4 H Distribution Width Platelet Count 142 Mean Platelet Volume 11.8 H Immature 2.500 H Granulocytes % Neutrophils % 78.8 H Lymphocytes % 13.5 L Monocytes % 4.9 Eosinophils % 0.0 Basophils % 0.3 Nucleated Red Blood 1.9 H Cells % Immature 0.220 H Granulocytes # Neutrophils # 7.1 Lymphocytes # 1.2 Monocytes # 0.4 Eosinophils # 0.0 Basophils # 0.0 Nucleated Red Blood 0.2 H Cells # Prothrombin Time 30.7 #H Prothrombin Time 2.4 Ratio INR International 2.94 Normalized Ratio Sodium Level 140 Potassium Level 6.2 *H Chloride Level 102 Carbon Dioxide Level 18 L Anion Gap 20 #H Blood Urea Nitrogen 71 H Creatinine 2.23 H Est Glomerular Filtrat Rate mL/min Glucose Level 180 Calcium Level 9.1 Troponin I 0.103 Test 07/08/18 14:22 07/08/18 22:42 07/08/18 23:03 07/09/18 01:29 Bedside Glucose 27 *L 82 106 Sodium Level 145 H Potassium Level 5.3 H Chloride Level 102 Carbon Dioxide Level 25 Anion Gap 18 H Blood Urea Nitrogen 75 H Creatinine 1.83 H Est Glomerular Filtrat Rate mL/min Glucose Level 104 # Calcium Level 9.2 Test 07/09/18 05:30 White Blood Count 7.7 Red Blood Count 4.80 Hemoglobin 15.0 Hematocrit 45.2 Mean Corpuscular 94.2 Volume Mean Corpuscular 31.3 Hemoglobin Mean Corpuscular 33.2 Hemoglobin Concent Red Cell 16.1 H Distribution Width Platelet Count 132 L Mean Platelet Volume 12.2 H Immature 1.300 H Granulocytes % Neutrophils % 75.6 Lymphocytes % 14.0 L Monocytes % 8.8 Eosinophils % 0.0 Basophils % 0.3 Nucleated Red Blood 2.9 H Cells % Immature 0.100 H Granulocytes # Neutrophils # 5.8 Lymphocytes # 1.1 Monocytes # 0.7 Eosinophils # 0.0 Basophils # 0.0 Nucleated Red Blood 0.2 H Cells # Sodium Level 144 Potassium Level 4.8 Chloride Level 108 Carbon Dioxide Level 25 Anion Gap 11 # Blood Urea Nitrogen 76 H Creatinine 1.85 H Est Glomerular Filtrat Rate mL/min Glucose Level 111 Hemoglobin A1c 5.8 Calcium Level 9.1 Magnesium Level 2.5 Thyroid Stimulating 3.490 Hormone (TSH) SABINE GOODSON MD Jul 09, 2018 13:06
[2018-07-09] MEDS: DIGOXIN 0.125 MG TAB PO SCH (13:42)
[2018-07-09] MEDS: TIOTROPIUM 18 MCG CAPSULE INHA DEV INH SCH (13:44)
--- NOTE | 2018-07-09 18:47 | NUR ---
RN NOTE PT IS CONFUSED AND NON COMPLIANCE WITH PLAN OF CARE , INCONTINENT . PT HAD 2.7 SEC PAUSE ON THE TELE MONITOR , NOT SYMPTOMATIC , LEFT A DETAILED MASSAGE FOR DR GOODSON REGARDING THAT .
[2018-07-09] MEDS: FAMOTIDINE 20 MG TAB PO SCH (22:24)
[2018-07-10] VITALS (35 sets, daily range): BP systolic 82–179; BP diastolic 57–143; PULSE 30–132; RESP 14–35
[2018-07-10] MEDS: DEXTROSE 5%-0.9% NACL 1,000 ML IV SCH (05:00)
--- NOTE | 2018-07-10 06:15 | NUR ---
EOSS VSS, SR on monitor, no SOB, no complaints of pain. Patient incontinent, sandra-care PRN. D5-NS running at 100ml/hr. Per patient, he lost his car keys prior to being brought to [facility], correctional case records supervisor consult is in. Hourly rounding done, encouraged pt. to reposition self in bed frequently. Patient stable at this time, will endorse to oncoming shift.
[2018-07-10] MEDS ORDERED: DEXTROSE 50% 50 ML SYRINGE ONE ×3 (07:00→10:39)
--- NOTE | 2018-07-10 07:30 | NUR ---
RN NOTE PT IS AX2-3, ABLE TO VERBALIZE NEEDS, AND ANXIOUS ASKING ABOUT HIS CAR AND HIS YON. BED ALARM ON, CALL LIGHT WITHIN REACH.
[2018-07-10] MEDS: ASPIRIN (EC) 81 MG TAB PO SCH (08:17)
[2018-07-10] MEDS: APIXABAN 5 MG TABLET PO SCH ×2 (08:18→21:00)
[2018-07-10] MEDS: METOPROLOL (XL) 100 MG TAB PO SCH ×2 (08:18→21:00)
[2018-07-10] MEDS: FLUTICASONE/VILANTEROL 100-25 INH SCH (08:19)
--- NOTE | 2018-07-10 10:32 | NUR ---
SW: ATTEMPTED CONTACT SW attempted to meet with this patient regarding patient verbalizing concerns about his car and keys. However, patient was not altered at this time. RN at bedside and a rapid response was called. Fingerprint Clerk will reattempt to meet with patient at a later time.
--- NOTE | 2018-07-10 10:44 | EN ---
Date/Time of Note Date/Time of Note DATE: 07/10/18 TIME: 10:39 Event Note Medicine Medicine Event Note Rapid response called around 10:15 this morning. Briefly, patient is a 73M found down yesterday with hypoglycemia. Today, VICE PRESIDENT OF CONSULTING SERVICES called after patient became unresponsive after 8 beats of VT. Nurse checked BS and it was 13, after 1 amp D50 was 75. When I arrived patient had Kussmaul respirations and was minimally responsive. Saturating mid 90s on oxygen facemask. Eyes open, not tracking, not following commands. Palpable femoral pulse. BP 113/55. 12 lead EKG showed no P waves, tavo ventricular rate to 50s, wide QRS. Normal heart sounds with no murmurs. Lungs clear bilaterally. Phlebotomy attempted to get labs prior to transfer but unsuccessful. Another amp D50 was given (2), and blood sugar dropped undetectable again. Two more amps D50 given (4). Patient transferred to ICU 117. I spent more than 38 minutes in the care of this patient. ASHLYN STANLEY MD Jul 10, 2018 10:44
--- NOTE | 2018-07-10 10:45 | NUR ---
RN NOTE 1020- 2 D50 IV PUSH WERE GIVEN DURING THE [employer] OPERATOR CODE FROM THE CRASH CARD. ORDERED BY DR. STANLEY.
--- NOTE | 2018-07-10 10:45 | NUR ---
RN NOTE NOTIFIED DR. CASTILLO, PT HAD 8 BEATS OF VTACH. ASSESSED PT, PT WAS NON-VERBAL AND ALTERED. UNABLE TO GET A BP READING.CHECKED PT'S BLOOD SUGAR WITH THE RESULT OF 13. NEW IV WAS PLACED ON THE RIGHT AC, AND PUSHED D50. NOTIFIED DR. CASTILLO, DR. CASTILLO CAME TOT HE BEDSIDE. RECHECKED BS AT 75 NOW. NEW ORDER TO GIVE D10. CALLED DISTRIBUTION AND WAITING FOR BAG. 1015, STILL UNABLE TO GET A READING FOR THE BLOOD PRESSURE AND 02 SAT. 1020, EDUCATION RN CALLED. RT PLACED PT ON A NON-REBREATHER, NO 02 READING. RECHECKED PT'S BS UNABLE TO GET A READING. DR. STANLEY BY THE BEDSIDE, WITH NEW ORDERS PLACED. PT IS TO GO TO ICU. RECHECKED BS AGAIN, UNABLE TO GET A READING. PUSHED 2 MORE D50 FROM THE CRASH CART. 1030, PT WENT DOWN TO ICU. REPORT GIVEN TO NATHANIEL YORK.
[2018-07-10] MEDS ORDERED: NA BICARBONATE 8.4% 50 ML SYG ONE (10:52)
[2018-07-10] MEDS ORDERED: NA BICARBONATE 8.4% 50 ML SYG IV STA ×2 (10:57)
[2018-07-10] MEDS ORDERED: DEXTROSE 50% 50 ML SYRINGE IV ONE ×2 (11:00)
--- NOTE | 2018-07-10 11:02 | NUR ---
PT: Urgent PT eval orders received while pt was on telemetry unit this AM, however pt subsequently is s/p PURCHASE ANALYST and transferred to ICU for further care. PT department will require new MD orders to initiate treatment as deemed appropriate due to transfer to higher level of care/status change.
[2018-07-10] MEDS: DEXTROSE 10% 1,000 ML IV SCH ×2 (11:10→19:51)
--- NOTE | 2018-07-10 11:43 | PN ---
DATE: 07/10/2018 SUBJECTIVE: The patient is somewhat confused and poorly responsive. OBJECTIVE: VITAL SIGNS: Stable. He is afebrile. NECK: Supple. LUNGS: Bilateral rhonchi. CARDIAC: Regular rate and rhythm. No murmurs, rubs or gallops. ABDOMEN: Soft, nontender, nondistended. Normoactive bowel sounds. EXTREMITIES: No clubbing, cyanosis, or edema. NEUROLOGIC: Patient moves all extremities. ASSESSMENT: 1. A 73-year-old male with a ground level fall. 2. Hypoglycemic reaction. Blood sugars were extremely low in the emergency room. We need to rule o ut any underlying disease such as insulinoma. 3. Dehydration. 4. Acute kidney injury, improving with intravneous fluid hydration. 5. Chronic obstructive pulmonary disease. 6. Chronic atrial fibrillation 7. Hypertension. PLAN: 1. Continue IV fluid hydration with D5 normal saline. 2. Monitor renal function. 3. Cardiology followup 4. Endocrine consultation was requested. Dictated By: AMMON MORALES/NTS Conf#: [id number] DID#: [id number] CC: MARIA C BAZZI MD;*EndCC*
[2018-07-10] MEDS ORDERED: LIDOCAINE 1% (MPF) 5 ML VIAL SC ONE (12:00)
--- NOTE | 2018-07-10 12:46 | CONS ---
Assessment/Plan Assessment/Plan Assessment/Plan (Daily) 1) Fall versus syncope 2) chronic afib now with RVR 3) LV dysfunction 4) no gross fluid overload 5) no ischemia in recent stress test 6) HTN Plan: 1) continue cv meds 2) s/p ucnotroleld glucose 3) s/p transient bradycardia - will stop dig as HR 40-50s, and will continue metoporlol - if further drop in HR, crawford top metorprol 4/ On eliquis Consultation Date/Type/Reason Admit Date/Time Jul 08, 2018 at 18:29 Initial Consult Date Type of Consult Cardiology Date/Time of Note DATE: 07/10/18 TIME: 12:41 24 HR Interval Summary Free Text/Dictation The patient with no change - Exam/Review of Systems Vital Signs Vitals Vital Signs Date Temp Pulse Resp B/P (MAP) Pulse Ox O2 O2 Flow FiO2 Time Delivery Rate 07/10/18 41 11:26 07/10/18 97.7 20 110/70 90 Nasal 07:52 (83) Cannula 07/08/18 2.0 19:31 Intake and Output 07/09/18 07/09/18 07/10/18 1515:00 23:00 07:00 IntakeIntake Total 400 ml 300 ml BalanceBalance 400 ml 300 ml Labs Result Diagram: 07/10/18 1043 07/10/18 1043 Results 24hrs Laboratory Tests Test 07/10/18 05:32 07/10/18 10:06 07/10/18 10:13 07/10/18 10:25 Sodium Level 147 H Potassium Level 5.2 H Chloride Level 112 H Carbon Dioxide 20 L Level Anion Gap 15 H Blood Urea 73 H Nitrogen Creatinine 1.60 H Est Glomerular Filtrat Rate mL/min Glucose Level 86 Calcium Level 9.3 Bedside Glucose 13 *L 75 < 13 *L Test 07/10/18 10:28 07/10/18 10:41 07/10/18 10:43 07/10/18 10:44 Bedside Glucose < 13 *L 15 *L Blood Gas Blood arterial Specimen Source Arterial Blood 07/10/2018 10:38: Date Drawn 32 AM Arterial Blood pH 7.268 *L (Temp corrected) Arterial Blood 18.9 L pCO2 (Temp correct) Arterial Blood 169.8 H pO2 (Temp corrected) Arterial Blood 8.4 *L HCO3 Arterial Blood -16.2 L Base Excess Arterial Blood 98.6 Oxygen Saturation Pranav Test ACCEPTAB Arterial Blood Right Radial Gas Puncture Site Arterial 0.3 Blood Carboxyhemo globin Arterial Blood 0.2 Methemoglobin Blood Gas A-a O2 524.3 H Differential Oxyhemoglobin 98.1 Percent Blood Gas 37.0 Temperature Blood Gas MASK - NRB Modality FiO2 100.[address] LAKHANI Critical Value Read Back Blood Gas TM Notified Whom Blood Gas 07/10/2018 10:48: Notified Time 33 AM White Blood Count 9.1 Red Blood Count 3.57 #L Hemoglobin 11.3 #L Hematocrit 36.2 L Mean Corpuscular 101.4 H Volume Mean Corpuscular 31.7 Hemoglobin Mean Corpuscular 31.2 L Hemoglobin Concen t Red Cell 16.8 H Distribution Width Platelet Count 100 #L Mean Platelet 12.1 H Volume Immature 3.600 H Granulocytes % Neutrophils % 75.1 Lymphocytes % 16.7 Monocytes % 4.4 Eosinophils % 0.0 Basophils % 0.2 Nucleated Red 8.6 H Blood Cells % Immature 0.330 H Granulocytes # Neutrophils # 6.8 Lymphocytes # 1.5 Monocytes # 0.4 Eosinophils # 0.0 Basophils # 0.0 Nucleated Red 0.8 H Blood Cells # Sodium Level 141 Potassium Level 5.9 H Chloride Level 106 Carbon Dioxide 14 L Level Anion Gap 21 H Blood Urea 70 H Nitrogen Creatinine 1.85 H Est Glomerular Filtrat Rate mL/min Glucose Level 468 #*H Calcium Level 8.0 L Test 07/10/18 10:49 07/10/18 11:05 Bedside Glucose 55 L 357 H NICOLE SMYTH MD Jul 10, 2018 12:46
[2018-07-10] MEDS: DIGOXIN 0.125 MG TAB PO SCH (13:00)
--- NOTE | 2018-07-10 14:21 | CONS ---
DATE OF ADMISSION: 07/10/2018 DATE OF CONSULTATION: 07/10/2018 REASON FOR CONSULTATION: Altered mental status, respiratory distress. Thank you, Dr. Daugherty, for this consultation. HISTORY OF PRESENT ILLNESS: This is a 73-year-old gentleman originally admitted following syncopal e pisode, found to have significant bradycardia and hypotension. This morning he was more hypotensive, more altered with bradycardia in the 40s and respiratory distress requiring emergent transfer to [facility] care unit. His blood sugar was noted to be under 30 requiring D50 pushes. Upon transfer here , he was also noted to be markedly hypoglycemic and with significant metabolic acidosis. Upon correc tion of hypoglycemia and intravenous bicarbonate his neurological respiratory status had improved. PAST MEDICAL HISTORY: 1. Diabetes mellitus. 2. Chronic atrial fibrillation. 3. Chronic obstructive pulmonary disease. 4. Renal insufficiency. MEDICATIONS: Per chart. ALLERGIES: None. SOCIAL HISTORY: He has an extensive tobacco history. No history of drug abuse. FAMILY HISTORY: Noncontributory. SYSTEMS REVIEW: A 12-point review of systems currently unable to perform. PHYSICAL EXAMINATION: GENERAL: Elderly-appearing gentleman, opens eyes to voice. VITAL SIGNS: Currently afebrile, pulse is now 50, blood pressure 110/70, O2 saturation 90% on nasal cannula. NECK: Supple. JVD. CARDIAC: S1, S2, no added sounds or murmurs. CHEST: Diminished air entry bilaterally. ABDOMEN: Soft, nontender. No guarding or rebound. EXTREMITIES: No cyanosis, clubbing or edema. NEUROLOGIC: Generalized weakness, but no focal deficits. DIAGNOSTIC DATA: Chest x-ray shows no infiltrates or effusions. Blood glucose has been fluctuating per chart. BUN 70, creatinine 1.85. Arterial blood gas pH 7.26, pCO2 of 18, pO2 of 169, bicarbonate was 8.4. IMPRESSION AND PLAN: 1. Hypoglycemia, questionable insulinoma. 2. Atrial fibrillation, history of atrial fibrillation, now with significant bradycardia, possibly s econdary to medications. 3. Encephalopathy, likely secondary to altered blood glucose. 4. Marked metabolic acidosis, possibly secondary to acute renal failure. The patient will require: 1. Renal evaluation. Consider renal ultrasound and consultation. 2. Endocrinology evaluation for recurrent hypoglycemia. 3. Consider broad-spectrum antibiotic coverage for possible underlying sepsis. 4. Repeat arterial blood gas to monitor metabolic acidosis. Dictated By: DARSHANA LAKHANI MD SV/NTS Conf#: [id number] DID#: [id number] CC: MARIA C BAZZI MD;*End*
--- NOTE | 2018-07-10 15:34 | NUR ---
SW: CONSULT SW reviewed patient's chart, and per transfer documents patient was transferred to the hospital from [facility] located at [address] [place] [address]. SW contacted [facility] ([phone]) and spoke with Gianfranco, sales communications manager on duty. Without disclosing any information about patient, BETY introduced self and informed him of reason for this call. Inquired if anyone has turned in any car keys. Gianfranco states that he checks the vault every day, and nobody has turned in any keys. SS will reattempt to interview patient for more information when patient more oriented and interviewable.
--- NOTE | 2018-07-10 17:04 | CONS ---
Assessment/Plan Assessment/Plan Hospital Course (Demo Recall) 73 y/o M with COPD, chronic atrial fibrillation, hypertension who was brought into the emergency room after he had a ground level fall at [facility]; FS was low in the field. Per chart he had no syncopal episode. Multiple low fingerstick readings, as low as 14. On examination patient has very cold extremities which could affect POC fingerstick reading. Spoke with ICU nurse, there is a discrepancy between FS readings from pulp of fingertip vs FS reading obtain from AC fossa vein. For example at 2pm FS reading from fingertip was 50 while POC FS from AC vein was 253; at 5pm FS reading from fingertip was 55 and from left AC vein was 128. I discussed with nurse to check a serum glucose at the same time to confirm which of the two POC fingerstick readings is appropriate. Hypoglycemia -POC fingerstick reading is affected by temperature, pending serum glucose to confirm FS reading. -Causes include drugs (insulin, sulfonylurea), endogeneous hyperinsulinism, end stage renal/liver failure, adrenal insufficiency and nonislet cell tumor Home medications reviewed, none cause hypoglycemia, some data on ACEI and beta noel causing hypoglycemia but the data is of very low quality evidence. (Home medications: Spiriva, Eliquis, Diltiazem, Lisinopril, Metoprolol, Aspirin and Lasix) Check for sulfonylurea screen (serum), 8AM cortisol and TSH No history of cancer per chart -When FS reading is <55 (depending on repeat serum glucose, FS might need to be obtained from AC vein), please send off the following BEFORE treating hypoglycemia 1. Serum glucose 2. Insulin 3. Proinsulin 4. C peptide 5. Beta hydroxybutyrate Will follow with you Consultation Date/Type/Reason Admit Date/Time Jul 08, 2018 at 18:29 Date/Time of Note DATE: 07/10/18 TIME: 17:03 Hx of Present Illness During examination, patient has waxing and waning mental status, he was able to provide answer to simple questions but unable to elaborate upon more detailed questioning. Chart reviewed, Mr Estevez is a 73 y/o M with COPD, chronic atrial fibrillation, hypertension who was brought into the emergency room after he had a ground level fall at [facility]; FS was low in the field. Per chart he had no syncopal episode. He denied any associated chest pain or shortness of breath. Fingerstick readings were as low as 14. He lives alone by himself. Constitutional: No fever, No chills, No sweats. Eye: No discharge. No icterus ENMT: No decreased hearing, no ear pain Respiratory: shortness of breath, No cough or sputum production Cardiovascular: No chest pain, No palpitations. Gastrointestinal: No nausea, vomiting or diarrhea Integumentary: No rash, No pruritus Neurologic: Drowsy. Past Medical History Medical History: hypertension, other (see HPI) Home Meds Active Scripts Metoprolol Succinate* (Toprol XL*) 100 Mg Tab.sr.24h, 200 MG PO BID for 30 Days Prov:AMMON CASTILLO MD 07/07/18 Diltiazem Hcl* (Cardizem CD*) 180 Mg Cap.sr.24h, 180 MG PO DAILY, #30 CAP Prov:AMMON CASTILLO MD 07/06/18 Furosemide* (Furosemide*) 20 Mg Tablet, 20 MG PO DAILY for 30 Days, TAB 3 Refills Prov:JUAN CARLOS WHEAT 07/04/18 Fluticasone-Vilanterol (Breo Ellipta Inhaler) 100-25 Mcg/Actuation Aer.pow.ba, 1 INH INH DAILY, #1 3 Refills Prov:JUAN CARLOS WHEAT 07/04/18 Aspirin Delayed Release (Aspirin Delayed Release) 81 Mg Tablet.dr, 81 MG PO DAILY for 30 Days, 3 Refills Prov:JUAN CARLOS WHEAT 07/04/18 Lisinopril* (Lisinopril*) 5 Mg Tablet, 2.5 MG PO QHS for 30 Days, TAB 3 Refills 1/2 tab daily Prov:JUAN CARLOS WHEAT 07/04/18 Apixaban* (Eliquis*) 5 Mg Tablet, 5 MG PO BID for 30 Days, TAB 3 Refills Prov:JUAN CARLOS WHEAT 07/04/18 Tiotropium Green Sea* (Spiriva*) 18 Mcg Cap.w.dev, 1 INH INH DAILY, #1 3 Refills Prov:JUAN CARLOS WHEAT 07/04/18 Discontinued Reported Medications Fihmsuodaq-Ofggbhwbzr-FCHV (Tribenzor) 40-10-25 Mg Tablet, 1 TAB PO DAILY, TAB 06/30/18 Discontinued Scripts Nicotine* (Nicotine* Patch) 21 mg/day Patch, 1 PATCH TRANSDERM DAILY for 7 Days Prov:AMMON CASTILLO MD 07/06/18 Metoprolol Succinate* (Toprol XL*) 50 Mg Tab.er.24h, 50 MG PO BID for 30 Days, 3 Refills Prov:Carly WHEATSAEGLENNY Azar 07/04/18 Medications Current Medications IV Flush (NS 3 ml) 3 ml PER PROTOCOL IV ; Start 07/08/18 at 22:30 Ondansetron HCl (Zofran Tab) 4 mg Q6H PRN PO nausea; Start 07/08/18 at 22:30 Acetaminophen (Tylenol Tab) 650 mg Q6H PRN PO fever Last administered on 07/09/18at 14:52; Admin Dose 650 MG; Start 07/08/18 at 22:30 Docusate Sodium (Colace) 100 mg Q12H PRN PO CONSTIPATION; Start 07/08/18 at 22:30 Magnesium Hydroxide (Milk Of Mag) 30 ml DAILY PRN PO indigestion; Start 07/08/18 at 22:30 Famotidine (Pepcid) 20 mg Q24H PO Last administered on 07/09/18at 22:24; Admin Dose 20 MG; Start 07/08/18 at 23:00 Apixaban (Eliquis) 5 mg BID PO Last administered on 07/10/18at 08:18; Admin Dose 5 MG; Start 07/08/18 at 23:00 Aspirin (Halfprin) 81 mg DAILY PO Last administered on 07/10/18at 08:17; Admin Dose 81 MG; Start 07/09/18 at 09:00 Fluticasone/ Vilanterol (Breo Ellipta 100-25 Mcg Inh) 1 inh DAILY INH Last administered on 07/10/18at 08:19; Admin Dose 1 INH; Start 07/09/18 at 09:00 Metoprolol Succinate (Toprol Xl) 200 mg BID PO Last administered on 07/10/18at 08:18; Admin Dose 200 MG; Start 07/08/18 at 23:00 Tiotropium [place] (Spiriva) 1 inh DAILY INH Last administered on 07/09/18at 13:44; Admin Dose 1 INH; Start 07/09/18 at 09:00 Digoxin (Digoxin) 0.125 mg DAILY@13 PO Last administered on 07/09/18at 13:42; Admin Dose 0.125 MG; Start 07/09/18 at 13:00; Status Hold Dextrose 1,000 ml @ 100 mls/hr Q10H IV Last administered on 07/10/18at 11:10; Admin Dose 70 MLS/HR; Start 07/10/18 at 10:30 Allergies: Coded Allergies: No Known Drug Allergies (Verified Allergy, Unknown, 07/08/18) Past Surgical History Past Surgical Hx: no surgical history Family History Significant Family History: other (no family history of diabetes mellitus) Social History Smoking Status: Current some day smoker Exam/Review of Systems Exam Vitals Vital Signs Date Temp Pulse Resp B/P (MAP) Pulse Ox O2 O2 Flow FiO2 Time Delivery Rate 07/10/18 53 19 112/76 92 Non 16:00 (88) Rebreather 07/10/18 97.4 11:30 07/08/18 2.0 19:31 Intake and Output 07/09/18 07/09/18 07/10/18 1515:00 23:00 07:00 IntakeIntake Total 400 ml 300 ml BalanceBalance 400 ml 300 ml Exam General: Appears frail. Skin appropriate for ethnicity Eye: Extraocular movements are intact, Normal conjunctiva. HENT: Normocephalic, atraumatic. Respiratory: Respirations are non-labored, Breath sounds are equal, Symmetrical chest wall expansion. Cardiovascular: S1, S2. No murmur. No LE edema. Bradycardia Gastrointestinal: Soft, Non-tender, Non-distended, Normal bowel sounds. Integumentary: All four extremities are cold to touch. Neurologic: waxing and waning mental status, able to answer simple questions and follows simple commands Results Result Diagram: 07/10/18 1043 07/10/18 1043 Results 24hrs Laboratory Tests Test 07/10/18 05:32 07/10/18 10:06 07/10/18 10:13 07/10/18 10:25 Sodium Level 147 H Potassium Level 5.2 H Chloride Level 112 H Carbon Dioxide 20 L Level Anion Gap 15 H Blood Urea 73 H Nitrogen Creatinine 1.60 H Est Glomerular Filtrat Rate mL/min Glucose Level 86 Calcium Level 9.3 Bedside Glucose 13 *L 75 < 13 *L Test 07/10/18 10:28 07/10/18 10:41 07/10/18 10:43 07/10/18 10:44 Bedside Glucose < 13 *L 15 *L Blood Gas Blood arterial Specimen Source Arterial Blood 07/10/2018 10:38: Date Drawn 32 AM Arterial Blood pH 7.268 *L (Temp corrected) Arterial Blood 18.9 L pCO2 (Temp correct) Arterial Blood 169.8 H pO2 (Temp corrected) Arterial Blood 8.4 *L HCO3 Arterial Blood -16.2 L Base Excess Arterial Blood 98.6 Oxygen Saturation Pranav Test ACCEPTAB Arterial Blood Right Radial Gas Puncture Site Arterial 0.3 Blood Carboxyhemo globin Arterial Blood 0.2 Methemoglobin Blood Gas A-a O2 524.3 H Differential Oxyhemoglobin 98.1 Percent Blood Gas 37.0 Temperature Blood Gas MASK - NRB Modality FiO2 100.[address] LAKHANI Critical Value Read Back Blood Gas TM Notified Whom Blood Gas 07/10/2018 10:48: Notified Time 33 AM White Blood Count 9.1 Red Blood Count 3.57 #L Hemoglobin 11.3 #L Hematocrit 36.2 L Mean Corpuscular 101.4 H Volume Mean Corpuscular 31.7 Hemoglobin Mean Corpuscular 31.2 L Hemoglobin Concen t Red Cell 16.8 H Distribution Width Platelet Count 100 #L Mean Platelet 12.1 H Volume Immature 3.600 H Granulocytes % Neutrophils % 75.1 Lymphocytes % 16.7 Monocytes % 4.4 Eosinophils % 0.0 Basophils % 0.2 Nucleated Red 8.6 H Blood Cells % Immature 0.330 H Granulocytes # Neutrophils # 6.8 Lymphocytes # 1.5 Monocytes # 0.4 Eosinophils # 0.0 Basophils # 0.0 Nucleated Red 0.8 H Blood Cells # Sodium Level 141 Potassium Level 5.9 H Chloride Level 106 Carbon Dioxide 14 L Level Anion Gap 21 H Blood Urea 70 H Nitrogen Creatinine 1.85 H Est Glomerular Filtrat Rate mL/min Glucose Level 468 #*H Calcium Level 8.0 L Test 07/10/18 10:49 07/10/18 11:05 07/10/18 12:28 07/10/18 14:40 Bedside Glucose 55 L 357 H 235 H 240 H Medications Medication Current Medications IV Flush (NS 3 ml) 3 ml PER PROTOCOL IV ; Start 07/08/18 at 22:30 Ondansetron HCl (Zofran Tab) 4 mg Q6H PRN PO nausea; Start 07/08/18 at 22:30 Acetaminophen (Tylenol Tab) 650 mg Q6H PRN PO fever Last administered on 07/09/18 14:52; Admin Dose 650 MG; Start 07/08/18 at 22:30 Docusate Sodium (Colace) 100 mg Q12H PRN PO CONSTIPATION; Start 07/08/18 at 22:30 Magnesium Hydroxide (Milk Of Mag) 30 ml DAILY PRN PO indigestion; Start 07/08/18 at 22:30 Famotidine (Pepcid) 20 mg Q24H PO Last administered on 07/09/18 22:24; Admin Dose 20 MG; Start 07/08/18 at 23:00 Apixaban (Eliquis) 5 mg BID PO Last administered on 07/10/18 08:18; Admin Dose 5 MG; Start 07/08/18 at 23:00 Aspirin (Halfprin) 81 mg DAILY PO Last administered on 07/10/18 08:17; Admin Dose 81 MG; Start 07/09/18 at 09:00 Fluticasone/ Vilanterol (Breo Ellipta 100-25 Mcg Inh) 1 inh DAILY INH Last administered on 07/10/18 08:19; Admin Dose 1 INH; Start 07/09/18 at 09:00 Metoprolol Succinate (Toprol Xl) 200 mg BID PO Last administered on 07/10/18 08:18; Admin Dose 200 MG; Start 07/08/18 at 23:00 Tiotropium [place] (Spiriva) 1 inh DAILY INH Last administered on 07/09/18 13:44; Admin Dose 1 INH; Start 07/09/18 at 09:00 Digoxin (Digoxin) 0.125 mg DAILY@13 PO Last administered on 07/09/18 13:42; Admin Dose 0.125 MG; Start 07/09/18 at 13:00; Status Hold Dextrose 1,000 ml @ 100 mls/hr Q10H IV Last administered on 07/10/18 11:10; Admin Dose 70 MLS/HR; Start 07/10/18 at 10:30 TANNER LUKE MD Jul 10, 2018 17:04
--- NOTE | 2018-07-10 19:30 | NUR ---
REPORT RECEIVED TO OUTGOING RN. CARE ASSUMED, EMAR/ ORDER HX. REVIEWED. TELEMETRY W/ EPISODE OF V.TACH. RATES > 120 PT. REASSESSED, DENIES CP. VS111/79 LABS. REVIEWED. MAG/TROPONIN TO BE ORDERED AND DR. SMYTH TO BE NOTIFIED.
--- NOTE | 2018-07-10 19:42 | NUR ---
1100: Patient arrived from [facility], hypoglycemic, peripheral blood sugars 30's. MD Brumfield at bedside. Patient responsive and on non-rebreather at this time. D10 started at 100 mls/hr according to MD Gomez. Patient resting comfortably in bed, AO to self. VSS. HEDRICK. Addendum: 07/10/18 at 1951 by KECIA BELTRAN RN EOSS: ABG resulted and patient given 2 amps of bicarb per MD Brumfield. MD Vazquez at bedside and made aware of non-correlation peripheral blood sugars to serum blood sugars. MD Almanza arrived at bedside and also made aware. Digital blood sugar done with corresponding AC and serum glucose. Serum and AC glucose correlating. MD Almanza aware. Patient continues to be AO2, resting comfortably in bed. Patient has d10@100 mls/ hour. Patients sister called and updated on patients status. No other incidents occurred during shift. Report given to PM RN. BRANDON.
[2018-07-10] MEDS ORDERED: GLUCOSE GEL 15 GRAM TUBE PO PRN ×2 (20:30)
[2018-07-10] MEDS ORDERED: GLUCAGON 1 MG INJ IM PRN (20:30)
[2018-07-10] MEDS ORDERED: GLUCOSE GEL 15 GRAM TUBE BUCCAL PRN (20:30)
[2018-07-10] MEDS ORDERED: DEXTROSE 50% 50 ML SYRINGE IV PRN ×2 (20:30)
[2018-07-10] MEDS: ACCU-CHEK XX SCH ×2 (21:00→23:00)
--- NOTE | 2018-07-10 21:42 | NUR ---
DR. Karma SMYTH UPDATED RE: BLOOD PRESSURE AND HR. STATES GIVE LOPRESSOR 5 MG IVP Q 6 HOURS. ALSO LAB. RESULTS RELAYED
[2018-07-10] MEDS: FAMOTIDINE 20 MG TAB PO SCH (23:00)
[2018-07-11] VITALS (30 sets, daily range): BP systolic 74–138; BP diastolic 48–104; PULSE 69–110; RESP 12–44
[2018-07-11] MEDS: METOPROLOL 5 MG INJ IV SCH ×4 (00:23→18:00)
[2018-07-11] MEDS: ACCU-CHEK XX SCH ×8 (01:00→21:16)
[2018-07-11] MEDS: DEXTROSE 10% 1,000 ML IV SCH ×2 (05:43→14:56)
--- NOTE | 2018-07-11 08:00 | NUR ---
pt hypothermic. elliot rojas applied
[2018-07-11] MEDS: FLUTICASONE/VILANTEROL 100-25 INH SCH (08:34)
[2018-07-11] MEDS: TIOTROPIUM 18 MCG CAPSULE INHA DEV INH SCH (08:34)
[2018-07-11] MEDS: METOPROLOL (XL) 100 MG TAB PO SCH (08:35)
[2018-07-11] MEDS: ASPIRIN (EC) 81 MG TAB PO SCH (08:35)
[2018-07-11] MEDS: APIXABAN 5 MG TABLET PO SCH (08:35)
--- NOTE | 2018-07-11 08:47 | CONS ---
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 3) s/p transient bradycardia - off dig yesterday due to bradycardia and will continue metoporlol - if further drop in HR, will stop metorprol 4/ On eliquis Consultation Date/Type/Reason Admit Date/Time Jul 10, 2018 at 13:18 Initial Consult Date Type of Consult Cardiology Date/Time of Note DATE: 07/11/18 TIME: 08:44 24 HR Interval Summary Free Text/Dictation The patient with no cahnge Exam/Review of Systems Vital Signs Vitals Vital Signs Date Temp Pulse Resp B/P (MAP) Pulse Ox O2 O2 Flow FiO2 Time Delivery Rate 07/11/18 91 19 138/87 Venturi 07:00 (104) Mask 07/11/18 97.6 04:00 07/11/18 98 50 02:46 07/10/18 15.0 23:30 Intake and Output 07/10/18 07/10/18 07/11/18 1414:59 22:59 06:59 IntakeIntake Total 400 ml 800 ml 800 ml OutputOutput Total 160 ml 175 ml BalanceBalance 400 ml 640 ml 625 ml Labs Result Diagram: 07/10/18 1043 07/11/18 0437 Results 24hrs Laboratory Tests Test 07/10/18 10:06 07/10/18 10:13 07/10/18 10:25 07/10/18 10:28 Bedside Glucose 13 *L 75 < 13 *L < 13 *L Test 07/10/18 10:41 07/10/18 10:43 07/10/18 10:44 07/10/18 10:49 Blood Gas Blood arterial Specimen Source Arterial Blood 07/10/2018 10:38: Date Drawn 32 AM Arterial Blood pH 7.268 *L (Temp corrected) Arterial Blood 18.9 L pCO2 (Temp correct) Arterial Blood 169.8 H pO2 (Temp corrected) Arterial Blood 8.4 *L HCO3 Arterial Blood -16.2 L Base Excess Arterial Blood 98.6 Oxygen Saturation Pranav Test ACCEPTAB Arterial Blood Right Radial Gas Puncture Site Arterial 0.3 Blood Carboxyhemo globin Arterial Blood 0.2 Methemoglobin Blood Gas A-a O2 524.3 H Differential Oxyhemoglobin 98.1 Percent Blood Gas 37.0 Temperature Blood Gas MASK - NRB Modality FiO2 100.[address] LAKHANI Critical Value Read Back Blood Gas TM Notified Whom Blood Gas 07/10/2018 10:48: Notified Time 33 AM White Blood Count 9.1 Red Blood Count 3.57 #L Hemoglobin 11.3 #L Hematocrit 36.2 L Mean Corpuscular 101.4 H Volume Mean Corpuscular 31.7 Hemoglobin Mean Corpuscular 31.2 L Hemoglobin Concen t Red Cell 16.8 H Distribution Width Platelet Count 100 #L Mean Platelet 12.1 H Volume Immature 3.600 H Granulocytes % Neutrophils % 75.1 Lymphocytes % 16.7 Monocytes % 4.4 Eosinophils % 0.0 Basophils % 0.2 Nucleated Red 8.6 H Blood Cells % Immature 0.330 H Granulocytes # Neutrophils # 6.8 Lymphocytes # 1.5 Monocytes # 0.4 Eosinophils # 0.0 Basophils # 0.0 Nucleated Red 0.8 H Blood Cells # Sodium Level 141 Potassium Level 5.9 H Chloride Level 106 Carbon Dioxide 14 L Level Anion Gap 21 H Blood Urea 70 H Nitrogen Creatinine 1.85 H Est Glomerular Filtrat Rate mL/min Glucose Level 468 #*H Calcium Level 8.0 L Bedside Glucose 15 *L 55 L Test 07/10/18 11:05 07/10/18 12:28 07/10/18 14:40 07/10/18 17:00 Bedside Glucose 357 H 235 H 240 H Sodium Level 148 H Potassium Level 4.8 Chloride Level 108 Carbon Dioxide 25 # Level Anion Gap 15 H Blood Urea 77 H Nitrogen Creatinine 1.75 H Est Glomerular Filtrat Rate mL/min Glucose Level 120 # Calcium Level 8.3 L Test 07/10/18 17:09 07/10/18 20:03 07/10/18 20:16 07/10/18 22:00 Bedside Glucose 128 100 79 Magnesium Level 2.7 H Troponin I 0.107 Test 07/10/18 23:43 07/11/18 01:42 07/11/18 03:58 07/11/18 04:37 Bedside Glucose 104 112 98 Sodium Level 146 H Potassium Level 4.0 Chloride Level 109 Carbon Dioxide 26 Level Anion Gap 11 Blood Urea 68 H Nitrogen Creatinine 1.51 H Est Glomerular Filtrat Rate mL/min Glucose Level 113 Calcium Level 9.0 Test 07/11/18 04:38 07/11/18 06:17 07/11/18 07:54 Thyroid 5.090 H Stimulating Hormone (TSH) Random Cortisol 38.6 Bedside Glucose 84 68 L Medications Medications Current Medications IV Flush (NS 3 ml) 3 ml PER PROTOCOL IV ; Start 07/08/18 at 22:30 Ondansetron HCl (Zofran Tab) 4 mg Q6H PRN PO nausea; Start 07/08/18 at 22:30 Acetaminophen (Tylenol Tab) 650 mg Q6H PRN PO fever Last administered on 07/09/18at 14:52; Admin Dose 650 MG; Start 07/08/18 at 22:30 Docusate Sodium (Colace) 100 mg Q12H PRN PO CONSTIPATION; Start 07/08/18 at 22:30 Magnesium Hydroxide (Milk Of Mag) 30 ml DAILY PRN PO indigestion; Start 07/08/18 at 22:30 Famotidine (Pepcid) 20 mg Q24H PO Last administered on 07/09/18at 22:24; Admin Dose 20 MG; Start 07/08/18 at 23:00 Apixaban (Eliquis) 5 mg BID PO Last administered on 07/11/18at 08:35; Admin Dose 5 MG; Start 07/08/18 at 23:00 Aspirin (Halfprin) 81 mg DAILY PO Last administered on 07/11/18at 08:35; Admin Dose 81 MG; Start 07/09/18 at 09:00 Fluticasone/ Vilanterol (Breo Ellipta 100-25 Mcg Inh) 1 inh DAILY INH Last administered on 07/10/18 08:19; Admin Dose 1 INH; Start 07/09/18 at 09:00 Metoprolol Succinate (Toprol Xl) 200 mg BID PO Last administered on 07/11/18 08:35; Admin Dose 200 MG; Start 07/08/18 at 23:00 Tiotropium [place] (Spiriva) 1 inh DAILY INH Last administered on 07/09/18at 13:44; Admin Dose 1 INH; Start 07/09/18 at 09:00 Digoxin (Digoxin) 0.125 mg DAILY@13 PO Last administered on 07/09/18at 13:42; Admin Dose 0.125 MG; Start 07/09/18 at 13:00; Status Hold Dextrose 1,000 ml @ 100 mls/hr Q10H IV Last administered on 07/11/18at 05:43; Admin Dose 100 MLS/HR; Start 07/10/18 at 10:30 Miscellaneous Information 1 ea NOTE XX ; Start 07/10/18 at 20:30 Glucose (Glutose) 15 gm Q15M PRN PO DECREASED GLUCOSE; Start 07/10/18 at 20:30 Glucose (Glutose) 22.5 gm Q15M PRN PO DECREASED GLUCOSE; Start 07/10/18 at 20:30 Dextrose (D50w Syringe) 25 ml Q15M PRN IV DECREASED GLUCOSE; Start 07/10/18 at 20:30 Dextrose (D50w Syringe) 50 ml Q15M PRN IV DECREASED GLUCOSE; Start 07/10/18 at 20:30 Glucagon (Glucagen) 1 mg Q15M PRN IM DECREASED GLUCOSE; Start 07/10/18 at 20:30 Glucose (Glutose) 15 gm Q15M PRN BUCCAL DECREASED GLUCOSE; Start 07/10/18 at 20:30 Metoprolol Tartrate (Lopressor) 5 mg Q6 IV Last administered on 07/11/18at 06:34; Admin Dose 5 MG; Start 07/11/18 at 00:00 Diagnostic Test (Pha) (Accu-Chek) 1 ea Q4 XX ; Start 07/11/18 at 09:00 NICOLE SMYTH MD Jul 11, 2018 08:47
--- NOTE | 2018-07-11 09:04 | PN ---
DATE: 07/11/2018 SUBJECTIVE: The patient was transferred to ICU after he had altered mental status and recurrent hypo glycemic reaction. The patient is alert and oriented. He has no complaints. OBJECTIVE: VITAL SIGNS: Stable. He is afebrile. LUNGS: Mild rhonchi. HEART: Regular rate and rhythm. No murmurs, rubs or gallops. ABDOMEN: Soft, nontender, nondistended, normoactive bowel sounds. EXTREMITIES: No clubbing, cyanosis, or edema. NEUROLOGIC: Grossly nonfocal except slow mentation. LABORATORY DATA: Sodium 146, potassium 4, chloride 109, bicarbonate 26, BUN 68, creatinine now 1.51. Last blood sugar was 68. ASSESSMENT: 1. A 73-year-old male with recurrent hypoglycemic reaction. We need to rule out insulinoma or other causes for persistent hypoglycemia. Blood sugar remains low despite D10 infusion. 2. Chronic obstructive pulmonary disease. 3. Chronic atrial fibrillation. 4. Acute kidney injury, slowly improving. 5. Dehydration, resolved. PLAN: 1. Transfer to telemetry. 2. Continue D10 drip. 3. Physical therapy. 4. Monitor kidney function closely. 5. Monitor blood sugar every 4 hours. 6. Endocrine followup is appreciated. 7. Insulin and proinsulin levels have been ordered and the result is pending. Dictated By: AMMON MORALES/CLINTON Conf#: [id number] DID#: [id number] CC: MARIA C BAZZI MD;*EndCC*
--- NOTE | 2018-07-11 09:30 | CONS ---
Assessment/Plan Assessment/Plan Assessment/Plan (Daily) Chest x-ray is essentially unremarkable. Assessment and recommendations; 1. Patient initially admitted for DKA with acute on chronic renal injury with marked overall clinical improvement. 2. Episode of hypoglycemia requiring transfer to ICU with altered mental status with interval improvement as well. 3. Anemia and thrombocytopenia. 4. Metabolic acidosis due to combination of DKA as well as renal insufficiency. Continue current supportive care. Perform follow-up ABG. Patient also can be transferred to medical floor. Consultation Date/Type/Reason Admit Date/Time Jul 10, 2018 at 13:18 Initial Consult Date Type of Consult Pulmonary/critical care Reason for Consultation Patient's condition is markedly improved. Patient now is completely awake and alert. Has remained hemodynamically stable. Denies any shortness of breath, chest pain, coughing, wheezing or any fever. General exam; elderly male, awake alert, currently in no distress. H EENT exam; supple neck, no JVD. No lymphadenopathy. Midline trachea. No thyromegaly. Patient is edentulous. No neck masses. Chest exam; clear to auscultation. S1-S2 audible, no murmurs. Irregular rhythm. Abdomen exam; soft, nontender. No organomegaly. Bowel sounds audible. Extremity exam; no peripheral edema or clubbing. SECURITY FLEX OFFICER exam; no focal deficit. Date/Time of Note DATE: 07/11/18 TIME: 09:28 Exam/Review of Systems Exam Vitals Vital Signs Date Temp Pulse Resp B/P (MAP) Pulse Ox O2 O2 Flow FiO2 Time Delivery Rate 07/11/18 104 34 133/85 94 Nasal 2.0 09:00 (101) Cannula 07/11/18 95.0 08:00 07/11/18 50 02:46 Intake and Output 07/10/18 07/10/18 07/11/18 1515:00 23:00 07:00 IntakeIntake Total 500 ml 800 ml 800 ml OutputOutput Total 160 ml 175 ml BalanceBalance 500 ml 640 ml 625 ml Results Result Diagram: 07/10/18 1043 07/11/18 0437 Results 24hrs Laboratory Tests Test 07/10/18 10:06 07/10/18 10:13 07/10/18 10:25 07/10/18 10:28 Bedside Glucose 13 *L 75 < 13 *L < 13 *L Test 07/10/18 10:41 07/10/18 10:43 07/10/18 10:44 07/10/18 10:49 Blood Gas Blood arterial Specimen Source Arterial Blood 07/10/2018 10:38: Date Drawn 32 AM Arterial Blood pH 7.268 *L (Temp corrected) Arterial Blood 18.9 L pCO2 (Temp correct) Arterial Blood 169.8 H pO2 (Temp corrected) Arterial Blood 8.4 *L HCO3 Arterial Blood -16.2 L Base Excess Arterial Blood 98.6 Oxygen Saturation Pranav Test ACCEPTAB Arterial Blood Right Radial Gas Puncture Site Arterial 0.3 Blood Carboxyhemo globin Arterial Blood 0.2 Methemoglobin Blood Gas A-a O2 524.3 H Differential Oxyhemoglobin 98.1 Percent Blood Gas 37.0 Temperature Blood Gas MASK - NRB Modality FiO2 100.[address] LAKHANI Critical Value Read Back Blood Gas TM Notified Whom Blood Gas 07/10/2018 10:48: Notified Time 33 AM White Blood Count 9.1 Red Blood Count 3.57 #L Hemoglobin 11.3 #L Hematocrit 36.2 L Mean Corpuscular 101.4 H Volume Mean Corpuscular 31.7 Hemoglobin Mean Corpuscular 31.2 L Hemoglobin Concen t Red Cell 16.8 H Distribution Width Platelet Count 100 #L Mean Platelet 12.1 H Volume Immature 3.600 H Granulocytes % Neutrophils % 75.1 Lymphocytes % 16.7 Monocytes % 4.4 Eosinophils % 0.0 Basophils % 0.2 Nucleated Red 8.6 H Blood Cells % Immature 0.330 H Granulocytes # Neutrophils # 6.8 Lymphocytes # 1.5 Monocytes # 0.4 Eosinophils # 0.0 Basophils # 0.0 Nucleated Red 0.8 H Blood Cells # Sodium Level 141 Potassium Level 5.9 H Chloride Level 106 Carbon Dioxide 14 L Level Anion Gap 21 H Blood Urea 70 H Nitrogen Creatinine 1.85 H Est Glomerular Filtrat Rate mL/min Glucose Level 468 #*H Calcium Level 8.0 L Bedside Glucose 15 *L 55 L Test 07/10/18 11:05 07/10/18 12:28 07/10/18 14:40 07/10/18 17:00 Bedside Glucose 357 H 235 H 240 H Sodium Level 148 H Potassium Level 4.8 Chloride Level 108 Carbon Dioxide 25 # Level Anion Gap 15 H Blood Urea 77 H Nitrogen Creatinine 1.75 H Est Glomerular Filtrat Rate mL/min Glucose Level 120 # Calcium Level 8.3 L Test 07/10/18 17:09 07/10/18 20:03 07/10/18 20:16 07/10/18 22:00 Bedside Glucose 128 100 79 Magnesium Level 2.7 H Troponin I 0.107 Test 07/10/18 23:43 07/11/18 01:42 07/11/18 03:58 07/11/18 04:37 Bedside Glucose 104 112 98 Sodium Level 146 H Potassium Level 4.0 Chloride Level 109 Carbon Dioxide 26 Level Anion Gap 11 Blood Urea 68 H Nitrogen Creatinine 1.51 H Est Glomerular Filtrat Rate mL/min Glucose Level 113 Calcium Level 9.0 Test 07/11/18 04:38 07/11/18 06:17 07/11/18 07:54 07/11/18 09:07 Thyroid 5.090 H Stimulating Hormone (TSH) Random Cortisol 38.6 Bedside Glucose 84 68 L 156 Medications Medication Current Medications IV Flush (NS 3 ml) 3 ml PER PROTOCOL IV ; Start 07/08/18 at 22:30 Ondansetron HCl (Zofran Tab) 4 mg Q6H PRN PO nausea; Start 07/08/18 at 22:30 Acetaminophen (Tylenol Tab) 650 mg Q6H PRN PO fever Last administered on 07/09/18at 14:52; Admin Dose 650 MG; Start 07/08/18 at 22:30 Docusate Sodium (Colace) 100 mg Q12H PRN PO CONSTIPATION; Start 07/08/18 at 22:30 Magnesium Hydroxide (Milk Of Mag) 30 ml DAILY PRN PO indigestion; Start 07/08/18 at 22:30 Famotidine (Pepcid) 20 mg Q24H PO Last administered on 07/09/18at 22:24; Admin Dose 20 MG; Start 07/08/18 at 23:00 Apixaban (Eliquis) 5 mg BID PO Last administered on 07/11/18at 08:35; Admin Dose 5 MG; Start 07/08/18 at 23:00 Aspirin (Halfprin) 81 mg DAILY PO Last administered on 07/11/18at 08:35; Admin Dose 81 MG; Start 07/09/18 at 09:00 Fluticasone/ Vilanterol (Breo Ellipta 100-25 Mcg Inh) 1 inh DAILY INH Last administered on 07/10/18 08:19; Admin Dose 1 INH; Start 07/09/18 at 09:00 Metoprolol Succinate (Toprol Xl) 200 mg BID PO Last administered on 07/11/18at 08:35; Admin Dose 200 MG; Start 07/08/18 at 23:00 Tiotropium [place] (Spiriva) 1 inh DAILY INH Last administered on 07/09/18at 13:44; Admin Dose 1 INH; Start 07/09/18 at 09:00 Digoxin (Digoxin) 0.125 mg DAILY@13 PO Last administered on 07/09/18at 13:42; Admin Dose 0.125 MG; Start 07/09/18 at 13:00; Status Hold Dextrose 1,000 ml @ 100 mls/hr Q10H IV Last administered on 07/11/18at 05:43; Admin Dose 100 MLS/HR; Start 07/10/18 at 10:30 Miscellaneous Information 1 ea NOTE XX ; Start 07/10/18 at 20:30 Glucose (Glutose) 15 gm Q15M PRN PO DECREASED GLUCOSE; Start 07/10/18 at 20:30 Glucose (Glutose) 22.5 gm Q15M PRN PO DECREASED GLUCOSE; Start 07/10/18 at 20:30 Dextrose (D50w Syringe) 25 ml Q15M PRN IV DECREASED GLUCOSE; Start 07/10/18 at 20:30 Dextrose (D50w Syringe) 50 ml Q15M PRN IV DECREASED GLUCOSE; Start 07/10/18 at 20:30 Glucagon (Glucagen) 1 mg Q15M PRN IM DECREASED GLUCOSE; Start 07/10/18 at 20:30 Glucose (Glutose) 15 gm Q15M PRN BUCCAL DECREASED GLUCOSE; Start 07/10/18 at 20:30 Metoprolol Tartrate (Lopressor) 5 mg Q6 IV Last administered on 07/11/18at 06:34; Admin Dose 5 MG; Start 07/11/18 at 00:00 Diagnostic Test (Pha) (Accu-Chek) 1 ea Q4 XX Last administered on 07/11/18at 09:15; Admin Dose 1 EA; Start 07/11/18 at 09:00 ALENA SIMON Jul 11, 2018 09:30
--- NOTE | 2018-07-11 12:07 | NUR ---
RN ATTEMPT TO PLACE LOZANO CATHETER. UPON INSERTION RESISTANCE MET, AND BLOOD NOTED. REMOVED LOZANO, BLOOD CLOT NOTED. HEMATURIA NOTED. DR CASTILLO NOTIFIED. DR CASTILOL TO CONSULT FOR DR BOCANEGRA FOR CATHETER PLACEMENT.
[2018-07-11] MEDS ORDERED: INSULIN GLARGINE [LANTus] (100 UNITS/ML) SYG SC SCH (12:30)
--- NOTE | 2018-07-11 12:47 | NUR ---
MARIIA NARAYANAN PLACED ON HOLD . TEMP 97.8
--- NOTE | 2018-07-11 14:04 | CONS ---
Assessment/Plan Assessment/Plan Problems: (1) Hypercortisolemia Status: Acute Comment: Given patient's presentation Cortisol of 38 does not make sense. Recheck cortisol level at midnight (2) Hypoglycemia Status: Acute Comment: Low blood sugar readings improved. Continued discrepancy between POC fingersticks and AC veinous reading. Etiology undetermined but possibly secondary to PVD. Awaiting insulin level and serum sulfonylurea levels. (3) TSH elevation Status: Acute Comment: First TSH reading within range at 3. Second TSH reading 5. This most compatible with Sick Euthyroid Syndrome Consultation Date/Type/Reason Admit Date/Time Jul 10, 2018 at 13:18 Initial Consult Date Jul 10, 2108 Type of Consult Endocrine Reason for Consultation Hypoglycemia Date/Time of Note DATE: 07/11/18 TIME: 13:48 24 HR Interval Summary Free Text/Dictation No hypoglycemic events Exam/Review of Systems Exam Vitals Vital Signs Date Temp Pulse Resp B/P (MAP) Pulse Ox O2 O2 Flow FiO2 Time Delivery Rate 07/11/18 95 12:00 07/11/18 97.8 30 92/78 (83) 94 Nasal 2.0 12:00 Cannula 07/11/18 50 02:46 Intake and Output 07/10/18 07/10/18 07/11/18 1515:00 23:00 07:00 IntakeIntake Total 500 ml 800 ml 800 ml OutputOutput Total 160 ml 175 ml BalanceBalance 500 ml 640 ml 625 ml Constitutional: frail, other (cachectic) Psych: other (in restraints) Neck: supple Respiratory: clear to auscultation Cardiovascular: irregular rhythm Gastrointestinal: soft Musculoskeletal: nl extremities to inspection, other (xerosis) Extremities: other (cold extremities) Skin: other (Limited speech put answers yes and no appropriately to questions) Additional Comments POC glucose and labs reviewed Results Result Diagram: 07/10/18 1043 07/11/18 0437 Results 24hrs Laboratory Tests Test 07/10/18 14:40 07/10/18 17:00 07/10/18 17:09 07/10/18 20:03 Bedside Glucose 240 H 128 100 Sodium Level 148 H Potassium Level 4.8 Chloride Level 108 Carbon Dioxide 25 # Level Anion Gap 15 H Blood Urea 77 H Nitrogen Creatinine 1.75 H Est Glomerular Filtrat Rate mL/min Glucose Level 120 # Calcium Level 8.3 L Test 07/10/18 20:16 07/10/18 22:00 07/10/18 23:43 07/11/18 01:42 Magnesium Level 2.7 H Troponin I 0.107 Bedside Glucose 79 104 112 Test 07/11/18 03:58 07/11/18 04:37 07/11/18 04:38 07/11/18 06:17 Bedside Glucose 98 84 Sodium Level 146 H Potassium Level 4.0 Chloride Level 109 Carbon Dioxide 26 Level Anion Gap 11 Blood Urea 68 H Nitrogen Creatinine 1.51 H Est Glomerular Filtrat Rate mL/min Glucose Level 113 Calcium Level 9.0 Thyroid 5.090 H Stimulating Hormone (TSH) Random Cortisol 38.6 Test 07/11/18 07:54 07/11/18 09:07 07/11/18 09:27 07/11/18 12:23 Bedside Glucose 68 L 156 188 Blood Gas Blood arterial Specimen Source Arterial Blood 07/11/2018 12:10: Date Drawn 00 PM Arterial Blood pH 7.428 (Temp corrected) Arterial Blood 17.1 L pCO2 (Temp correct) Arterial Blood 55.6 L pO2 (Temp corrected) Arterial Blood 11.0 L HCO3 Arterial Blood -10.3 L Base Excess Arterial Blood 87.5 L Oxygen Saturation Pranav Test ACCEPTAB Arterial Blood Right Radial Gas Puncture Site Arterial 0.1 Blood Carboxyhemo globin Arterial Blood 0.1 Methemoglobin Blood Gas A-a O2 73.7 H Differential Oxyhemoglobin 87.3 L Percent Blood Gas 37.0 Temperature Blood Gas 14.0 Respiration Rate Blood Gas Actual 33 Respiration Rate Blood Gas ROOM AIR Modality FiO2 21.0 Blood Gas 10 Pressure Support Blood Gas 15/5 IPAP/EPAP Ratio Blood Gas DT Notified Whom Blood Gas 07/11/2018 12:34: Notified Time 00 PM Medications Medication Current Medications IV Flush (NS 3 ml) 3 ml PER PROTOCOL IV ; Start 07/08/18 at 22:30 Ondansetron HCl (Zofran Tab) 4 mg Q6H PRN PO nausea; Start 07/08/18 at 22:30 Acetaminophen (Tylenol Tab) 650 mg Q6H PRN PO fever Last administered on 07/09/18at 14:52; Admin Dose 650 MG; Start 07/08/18 at 22:30 Docusate Sodium (Colace) 100 mg Q12H PRN PO CONSTIPATION; Start 07/08/18 at 22:30 Magnesium Hydroxide (Milk Of Mag) 30 ml DAILY PRN PO indigestion; Start 07/08/18 at 22:30 Famotidine (Pepcid) 20 mg Q24H PO Last administered on 07/09/18at 22:24; Admin Dose 20 MG; Start 07/08/18 at 23:00 Apixaban (Eliquis) 5 mg BID PO Last administered on 07/11/18at 08:35; Admin Dose 5 MG; Start 07/08/18 at 23:00 Aspirin (Halfprin) 81 mg DAILY PO Last administered on 07/11/18at 08:35; Admin Dose 81 MG; Start 07/09/18 at 09:00 Fluticasone/ Vilanterol (Breo Ellipta 100-25 Mcg Inh) 1 inh DAILY INH Last administered on 07/10/18at 08:19; Admin Dose 1 INH; Start 07/09/18 at 09:00 Metoprolol Succinate (Toprol Xl) 200 mg BID PO Last administered on 07/11/18at 08:35; Admin Dose 200 MG; Start 07/08/18 at 23:00 Tiotropium [place] (Spiriva) 1 inh DAILY INH Last administered on 07/09/18at 13:44; Admin Dose 1 INH; Start 07/09/18 at 09:00 Digoxin (Digoxin) 0.125 mg DAILY@13 PO Last administered on 07/09/18at 13:42; Admin Dose 0.125 MG; Start 07/09/18 at 13:00; Status Hold Dextrose 1,000 ml @ 100 mls/hr Q10H IV Last administered on 07/11/18at 05:43; Admin Dose 100 MLS/HR; Start 07/10/18 at 10:30 Miscellaneous Information 1 ea NOTE XX ; Start 07/10/18 at 20:30 Glucose (Glutose) 15 gm Q15M PRN PO DECREASED GLUCOSE; Start 07/10/18 at 20:30 Glucose (Glutose) 22.5 gm Q15M PRN PO DECREASED GLUCOSE; Start 07/10/18 at 20:30 Dextrose (D50w Syringe) 25 ml Q15M PRN IV DECREASED GLUCOSE; Start 07/10/18 at 20:30 Dextrose (D50w Syringe) 50 ml Q15M PRN IV DECREASED GLUCOSE; Start 07/10/18 at 20:30 Glucagon (Glucagen) 1 mg Q15M PRN IM DECREASED GLUCOSE; Start 07/10/18 at 20:30 Glucose (Glutose) 15 gm Q15M PRN BUCCAL DECREASED GLUCOSE; Start 07/10/18 at 20:30 Metoprolol Tartrate (Lopressor) 5 mg Q6 IV Last administered on 07/11/18at 06:34; Admin Dose 5 MG; Start 07/11/18 at 00:00 Diagnostic Test (Pha) (Accu-Chek) 1 ea Q4 XX Last administered on 07/11/18at 12:34; Admin Dose 1 EA; Start 07/11/18 at 09:00 EMMA FORMAN MD Jul 11, 2018 14:02
--- NOTE | 2018-07-11 14:46 | NUR ---
SW Note: Attempted Consult HAND STRAIGHTENER presented to pt room, per RN, pt was in process of receiving burkett and requested HAND STRAIGHTENER come back later. HAND STRAIGHTENER will attempt to return for consult if time permits.
--- NOTE | 2018-07-11 15:01 | CONS ---
Assessment/Plan Assessment/Plan Hospital Course (Demo Recall) 73-year-old male with chronic atrial fibrillation and hypertension, recently discharged from [facility], was brought into the emergency room after he had a ground level fall at [facility]. He was found to be hypoglycemic in the field. Blood sugars in the ER were as low as 14. His mental status improved after he received D50 and placed on D5. Patient was also noted to have acute kidney injury with BUN of 71 and creatinine of 2.23. Attempt to insert a Orellana catheter by the nursing staff was not successful. The patient had a gross bloody urine was blood clots therefore a urological consultation was requested. On the exam the bladder did not seem to be distended. Bladder scan shows a bladder volume of 14 mL. I did go ahead and prep the genital area and was able to insert a 16 Mohawk coud catheter. I irrigated the catheter and it does irrigate well. The patient has no urine output and he is anuric. Rectal exam showed that the prostate is large and nodular. I will get his serum PSA on him. And keep the Orellana catheter in. Consultation Date/Type/Reason Admit Date/Time Jul 10, 2018 at 13:18 Date of Consultation: Jul 11, 2018 Type of Consult Urology Reason for Consultation Acute kidney injury and difficulty inserting a Orellana catheter by the nursing staff causing gross hematuria Requesting Provider: AMMON CASTILLO MD Date/Time of Note DATE: 07/11/18 TIME: 14:50 Hx of Present Illness 73-year-old male with chronic atrial fibrillation and hypertension, recently discharged from [facility], was brought into the emergency room after he had a ground level fall at [facility]. He was found to be hypoglycemic in the field. Blood sugars in the ER were as low as 14. His mental status imp roved after he received D50 and placed on D5. Patient was also noted to have acute kidney injury with BUN of 71 and creatinine of 2.23. Attempt to insert a Orellana catheter by the nursing staff was not successful. The patient had a gross bloody urine was blood clots therefore a urological consultation was requested. Subjective hx not possible: other (Patient very weak and having difficulty breathing) Constitutional: requiring O2 Eyes: no complaints ENT: no complaints Respiratory: shortness of breath Cardiovascular: other (Atrial fibrillation) Gastrointestinal: no complaints Genitourinary: bleeding (From urethra), hematuria Musculoskeletal: no complaints Skin: no complaints Endocrine: no complaints Lymphatic: no complaints Psychological: no complaints Past Medical History Medical History: hypertension, other (Atrial fibrillation, COPD and recent syncopal episode) Home Meds Active Scripts Metoprolol Succinate* (Toprol XL*) 100 Mg Tab.sr.24h, 200 MG PO BID for 30 Days Prov:AMMON CASTILLO MD 07/07/18 Diltiazem Hcl* (Cardizem CD*) 180 Mg Cap.sr.24h, 180 MG PO DAILY, #30 CAP Prov:AMMON CASTILLO MD 07/06/18 Furosemide* (Furosemide*) 20 Mg Tablet, 20 MG PO DAILY for 30 Days, TAB 3 Refills Prov:JUAN CARLOS WHEAT 07/04/18 Fluticasone-Vilanterol (Breo Ellipta Inhaler) 100-25 Mcg/Actuation Aer.pow.ba, 1 INH INH DAILY, #1 3 Refills Prov:JUAN CARLOS WHEAT 07/04/18 Aspirin Delayed Release (Aspirin Delayed Release) 81 Mg Tablet.dr, 81 MG PO DAILY for 30 Days, 3 Refills Prov:JUAN CARLOS WHEAT 07/04/18 Lisinopril* (Lisinopril*) 5 Mg Tablet, 2.5 MG PO QHS for 30 Days, TAB 3 Refills 1/2 tab daily Prov:JUAN CARLOS WHEAT 07/04/18 Apixaban* (Eliquis*) 5 Mg Tablet, 5 MG PO BID for 30 Days, TAB 3 Refills Prov:JUAN CARLOS WHEAT 07/04/18 Tiotropium [place]* (Spiriva*) 18 Mcg Cap.w.dev, 1 INH INH DAILY, #1 3 Refills Prov:JUAN CARLOS WHEAT 07/04/18 Discontinued Reported Medications Upqvuastgg-Jretknqklo-SXPO (Tribenzor) 40-10-25 Mg Tablet, 1 TAB PO DAILY, TAB 06/30/18 Discontinued Scripts Nicotine* (Nicotine* Patch) 21 mg/day Patch, 1 PATCH TRANSDERM DAILY for 7 Days Prov:AMMON CASTILLO MD 07/06/18 Metoprolol Succinate* (Toprol XL*) 50 Mg Tab.er.24h, 50 MG PO BID for 30 Days, 3 Refills Prov:JUAN CARLOS WHEAT 07/04/18 Medications Current Medications IV Flush (NS 3 ml) 3 ml PER PROTOCOL IV ; Start 07/08/18 at 22:30 Ondansetron HCl (Zofran Tab) 4 mg Q6H PRN PO nausea; Start 07/08/18 at 22:30 Acetaminophen (Tylenol Tab) 650 mg Q6H PRN PO fever Last administered on 07/09/18at 14:52; Admin Dose 650 MG; Start 07/08/18 at 22:30 Docusate Sodium (Colace) 100 mg Q12H PRN PO CONSTIPATION; Start 07/08/18 at 22:30 Magnesium Hydroxide (Milk Of Mag) 30 ml DAILY PRN PO indigestion; Start 07/08/18 at 22:30 Famotidine (Pepcid) 20 mg Q24H PO Last administered on 07/09/18at 22:24; Admin Dose 20 MG; Start 07/08/18 at 23:00 Apixaban (Eliquis) 5 mg BID PO Last administered on 07/11/18 08:35; Admin Dose 5 MG; Start 07/08/18 at 23:00 Aspirin (Halfprin) 81 mg DAILY PO Last administered on 07/11/18 08:35; Admin Dose 81 MG; Start 07/09/18 at 09:00 Fluticasone/ Vilanterol (Breo Ellipta 100-25 Mcg Inh) 1 inh DAILY INH Last administered on 07/10/18 08:19; Admin Dose 1 INH; Start 07/09/18 at 09:00 Metoprolol Succinate (Toprol Xl) 200 mg BID PO Last administered on 07/11/18 08:35; Admin Dose 200 MG; Start 07/08/18 at 23:00 Tiotropium [place] (Spiriva) 1 inh DAILY INH Last administered on 07/09/18 13:44; Admin Dose 1 INH; Start 07/09/18 at 09:00 Digoxin (Digoxin) 0.125 mg DAILY@13 PO Last administered on 07/09/18 13:42; Admin Dose 0.125 MG; Start 07/09/18 at 13:00; Status Hold Dextrose 1,000 ml @ 100 mls/hr Q10H IV Last administered on 07/11/18 05:43; Admin Dose 100 MLS/HR; Start 07/10/18 at 10:30 Miscellaneous Information 1 ea NOTE XX ; Start 07/10/18 at 20:30 Glucose (Glutose) 15 gm Q15M PRN PO DECREASED GLUCOSE; Start 07/10/18 at 20:30 Glucose (Glutose) 22.5 gm Q15M PRN PO DECREASED GLUCOSE; Start 07/10/18 at 20:30 Dextrose (D50w Syringe) 25 ml Q15M PRN IV DECREASED GLUCOSE; Start 07/10/18 at 20:30 Dextrose (D50w Syringe) 50 ml Q15M PRN IV DECREASED GLUCOSE; Start 07/10/18 at 20:30 Glucagon (Glucagen) 1 mg Q15M PRN IM DECREASED GLUCOSE; Start 07/10/18 at 20:30 Glucose (Glutose) 15 gm Q15M PRN BUCCAL DECREASED GLUCOSE; Start 07/10/18 at 20:30 Metoprolol Tartrate (Lopressor) 5 mg Q6 IV Last administered on 07/11/18at 06:34; Admin Dose 5 MG; Start 07/11/18 at 00:00 Diagnostic Test (Pha) (Accu-Chek) 1 ea Q4 XX Last administered on 07/11/18at 12:34; Admin Dose 1 EA; Start 07/11/18 at 09:00 Allergies: Coded Allergies: No Known Drug Allergies (Verified Allergy, Unknown, 07/08/18) Past Surgical History Past Surgical Hx: no surgical history (None that we know of) Social History Alcohol Use: other (Unknown history) Smoking Status: Current some day smoker Exam/Review of Systems Exam Vitals Vital Signs Date Temp Pulse Resp B/P (MAP) Pulse Ox O2 O2 Flow FiO2 Time Delivery Rate 07/11/18 95 12:00 07/11/18 97.8 30 92/78 (83) 94 Nasal 2.0 12:00 Cannula 07/11/18 50 02:46 Intake and Output 07/10/18 07/10/18 07/11/18 1515:00 23:00 07:00 IntakeIntake Total 500 ml 800 ml 800 ml OutputOutput Total 160 ml 175 ml BalanceBalance 500 ml 640 ml 625 ml Constitutional: frail Head: normocephalic Eyes: nl conjunctiva ENMT: nl external ears & nose Neck: supple Respiratory: labored breathing; No wheezing Cardiovascular: other (Atrial fib) Gastrointestinal: soft; No tender Genitourinary - Male: other (Blood and blood clots coming out of the urethra. The bladder is not distended. I did a bladder scan on him and that only showed about 14 mL. Rectal exam: Prostate is large and nodular) Musculoskeletal: nl extremities to inspection Extremities: No calf tenderness, No edema Neurological: lethargic Skin: nl turgor Results Result Diagram: 07/10/18 1043 07/11/18 0437 Results 24hrs Laboratory Tests Test 07/10/18 17:00 07/10/18 17:09 07/10/18 20:03 07/10/18 20:16 Sodium Level 148 H Potassium Level 4.8 Chloride Level 108 Carbon Dioxide 25 # Level Anion Gap 15 H Blood Urea 77 H Nitrogen Creatinine 1.75 H Est Glomerular Filtrat Rate mL/min Glucose Level 120 # Calcium Level 8.3 L Bedside Glucose 128 100 Magnesium Level 2.7 H Troponin I 0.107 Test 07/10/18 22:00 07/10/18 23:43 07/11/18 01:42 07/11/18 03:58 Bedside Glucose 79 104 112 98 Test 07/11/18 04:37 07/11/18 04:38 07/11/18 06:17 07/11/18 07:54 Sodium Level 146 H Potassium Level 4.0 Chloride Level 109 Carbon Dioxide 26 Level Anion Gap 11 Blood Urea 68 H Nitrogen Creatinine 1.51 H Est Glomerular Filtrat Rate mL/min Glucose Level 113 Calcium Level 9.0 Thyroid 5.090 H Stimulating Hormone (TSH) Random Cortisol 38.6 Bedside Glucose 84 68 L Test 07/11/18 09:07 07/11/18 09:27 07/11/18 12:23 Bedside Glucose 156 188 Blood Gas Blood arterial Specimen Source Arterial Blood 07/11/2018 12:10: Date Drawn 00 PM Arterial Blood pH 7.428 (Temp corrected) Arterial Blood 17.1 L pCO2 (Temp correct) Arterial Blood 55.6 L pO2 (Temp corrected) Arterial Blood 11.0 L HCO3 Arterial Blood -10.3 L Base Excess Arterial Blood 87.5 L Oxygen Saturation Pranav Test ACCEPTAB Arterial Blood Right Radial Gas Puncture Site Arterial 0.1 Blood Carboxyhemo globin Arterial Blood 0.1 Methemoglobin Blood Gas A-a O2 73.7 H Differential Oxyhemoglobin 87.3 L Percent Blood Gas 37.0 Temperature Blood Gas 14.0 Respiration Rate Blood Gas Actual 33 Respiration Rate Blood Gas ROOM AIR Modality FiO2 21.0 Blood Gas 10 Pressure Support Blood Gas 15/5 IPAP/EPAP Ratio Blood Gas DT Notified Whom Blood Gas 07/11/2018 12:34: Notified Time 00 PM Medications Medication Current Medications IV Flush (NS 3 ml) 3 ml PER PROTOCOL IV ; Start 07/08/18 at 22:30 Ondansetron HCl (Zofran Tab) 4 mg Q6H PRN PO nausea; Start 07/08/18 at 22:30 Acetaminophen (Tylenol Tab) 650 mg Q6H PRN PO fever Last administered on 07/09/18 14:52; Admin Dose 650 MG; Start 07/08/18 at 22:30 Docusate Sodium (Colace) 100 mg Q12H PRN PO CONSTIPATION; Start 07/08/18 at 22:30 Magnesium Hydroxide (Milk Of Mag) 30 ml DAILY PRN PO indigestion; Start 07/08/18 at 22:30 Famotidine (Pepcid) 20 mg Q24H PO Last administered on 07/09/18 22:24; Admin Dose 20 MG; Start 07/08/18 at 23:00 Apixaban (Eliquis) 5 mg BID PO Last administered on 07/11/18 08:35; Admin Dose 5 MG; Start 07/08/18 at 23:00 Aspirin (Halfprin) 81 mg DAILY PO Last administered on 07/11/18 08:35; Admin Dose 81 MG; Start 07/09/18 at 09:00 Fluticasone/ Vilanterol (Breo Ellipta 100-25 Mcg Inh) 1 inh DAILY INH Last administered on 07/10/18 08:19; Admin Dose 1 INH; Start 07/09/18 at 09:00 Metoprolol Succinate (Toprol Xl) 200 mg BID PO Last administered on 07/11/18 08:35; Admin Dose 200 MG; Start 07/08/18 at 23:00 Tiotropium [place] (Spiriva) 1 inh DAILY INH Last administered on 07/09/18 13:44; Admin Dose 1 INH; Start 07/09/18 at 09:00 Digoxin (Digoxin) 0.125 mg DAILY@13 PO Last administered on 07/09/18 13:42; Admin Dose 0.125 MG; Start 07/09/18 at 13:00; Status Hold Dextrose 1,000 ml @ 100 mls/hr Q10H IV Last administered on 07/11/18at 05:43; Admin Dose 100 MLS/HR; Start 07/10/18 at 10:30 Miscellaneous Information 1 ea NOTE XX ; Start 07/10/18 at 20:30 Glucose (Glutose) 15 gm Q15M PRN PO DECREASED GLUCOSE; Start 07/10/18 at 20:30 Glucose (Glutose) 22.5 gm Q15M PRN PO DECREASED GLUCOSE; Start 07/10/18 at 20:30 Dextrose (D50w Syringe) 25 ml Q15M PRN IV DECREASED GLUCOSE; Start 07/10/18 at 20:30 Dextrose (D50w Syringe) 50 ml Q15M PRN IV DECREASED GLUCOSE; Start 07/10/18 at 20:30 Glucagon (Glucagen) 1 mg Q15M PRN IM DECREASED GLUCOSE; Start 07/10/18 at 20:30 Glucose (Glutose) 15 gm Q15M PRN BUCCAL DECREASED GLUCOSE; Start 07/10/18 at 20:30 Metoprolol Tartrate (Lopressor) 5 mg Q6 IV Last administered on 07/11/18at 06:34; Admin Dose 5 MG; Start 07/11/18 at 00:00 Diagnostic Test (Pha) (Accu-Chek) 1 ea Q4 XX Last administered on 07/11/18at 12:34; Admin Dose 1 EA; Start 07/11/18 at 09:00 TANYA DELGADO MD Jul 11, 2018 15:01
--- NOTE | 2018-07-11 16:50 | NUR ---
END OF SHIFT SUMMARY - PT STABLE ON 2L OXYGEN. PT CONTINUES TO HAVE BLEEDING AROUND URINARY MEATUS. LABS ORDERED FOR INR AND H/H. UNABLE TO OBTAIN ACCURATE ACCUCHECK VIA FINGERSTICK. BLOOD GLUCOSE CHECKED VIA VENOUS BLOOD DRAW FROM LINE OR PERIPHERAL STICK.
[2018-07-11] MEDS ORDERED: LIDOCAINE 1% (MPF) 5 ML VIAL SC ONE (17:00)
[2018-07-11] MEDS ORDERED: PHYTONADIONE 10 MG/ML INJ IM ONE (18:00)
--- NOTE | 2018-07-11 18:02 | NUR ---
PICC Insertion. Attended to pt in ICU room 117 for peripherally inserted central catheter (PICC) insertion. Patient (awake, alert, oriented x 4). Patient has had previous PICC's in the past. Procedure reviewed, patient agreed to proceed. Signed consent by sister on chart for PICC. RUE prepped with chlorhexidene, then maximum barrier drape applied. 5 FR double lumen Arrow Power PICC inserted into brachial vein, using U/S guidance and sterile technique. CXR performed; tip confirmed in lower 1/3 SVC. Sterile dressing applied. Patient tolerated procedure well. total cath length 43 cm, 43 in/zero out.
--- NOTE | 2018-07-11 19:05 | NUR ---
BP 76/63. DR JONATHAN WHEELER.
[2018-07-11] MEDS ORDERED: SOD CHLORIDE 0.9% 500 ML IV ONE (19:30)
--- NOTE | 2018-07-11 21:10 | NUR ---
S/P 500 CC NS BOLUS GIVEN, VITALS STABLE, WILL CONTINUE TO MONITOR PATIENT.
[2018-07-11] MEDS: FAMOTIDINE 20 MG TAB PO SCH (22:14)
[2018-07-12] VITALS (53 sets, daily range): BP systolic 39–133; BP diastolic 17–117; PULSE 0–154; RESP 0–43
[2018-07-12] MEDS: ACCU-CHEK XX SCH ×3 (01:30→09:30)
[2018-07-12] MEDS: DEXTROSE 10% 1,000 ML IV SCH (04:13)
--- NOTE | 2018-07-12 06:20 | NUR ---
DR. YU NOTIFIED OF ABG LABS, NO NEW ORDERS RECEIVED AT THIS TIME, WILL CONTINUE TO MONITOR PT.
--- NOTE | 2018-07-12 06:30 | NUR ---
Pt started going bradycardic low 50's, nonresponsive, weak pulse. Code javier was called. Dr. Christian arrived on site, atropine x1, bicarb x2, and epi x2 was given. Patient was intubated 7.[address] Vazquez, and family were notified.
--- NOTE | 2018-07-12 06:59 | EN ---
Date/Time of Note Date/Time of Note DATE: 07/12/18 TIME: 06:53 ER Progress Note CODE BLUE/intubation I was called to the ICU for intubation for a patient who was brought in with altered mental status and syncope. he began having agonal respirations and required airway. Endotracheal Intubation by me: Pre assessment performed. See preceding note for details. Pre-oxygenation performed with 100% oxygen RSI: Performed w/o complication or hypoxic events. Medications as ordered. Blade: Stores MAC 4 ET Tube: 7.5 cm Depth: 22 cm at the lip Intubation confirmed by colorimetric CO2, equal breath sounds, quiet over the stomach. Const: Well-developed, well-nourished Head: Atraumatic, normocephalic Eyes: Normal Conjunctiva, PERRLA, EOMI, normal sclera, no nystagmus ENT: Normal External Ears, Nose and Mouth, moist mucus membranes. Neck: Full range of motion. No meningismus. Resp: Clear to auscultation bilaterally, no wheezing, rhonchi, rales Cardio: Tachycardia irregular rate and rhythm, no murmurs, S1 S2 present Abd: Soft, non tender x 4, non distended. Normal bowel sounds, no guarding or rebound, no pulsitile abdominal masses or bruits Skin: No petechiae or rashes, no ecchymosis , no maculopapular rash Back: Not examined Ext: No cyanosis, or edema, normal inspection, vascularly intact x 4 Neur: GCS of 3 Psych: Unable to obtain Shortly thereafter the patient had a wide-complex bradycardia and he was given some atropine just before intubation then he after intubation had a pulse check which showed no pulse was palpable so we began CPR. He was given epinephrine 1 mg IV and 2 A of sodium bicarb because his CO2 was 8 this morning. At pulse check he was in V. fib he was then defibrillated x1 CPR was continued for another minute and another pulse check revealed he had a heart rate with a palpable pulse. He was in atrial fibrillation with a heart rate of 130-140, blood pressure was 137/118 . Critical Care Time: 30 minutes Treatments/Evaluations: Close monitoring and treatment of unstable vital signs, cardiorespiratory, and neurologic status, while maintaining tight balance of fluid, respiratory, and cardiac interventions. This time includes discussing the case with the patient and the patient's family. This time does not include all procedures stated elsewhere in this record. This time also includes reviewing old records, labs and radiological studies. This time includes examining and re- examining the patient. Additionally, this time also includes arranging care with admitting and consulting physicians. Condition: Critical Diagnosis: Cardiorespiratory failure, cardiac arrest LAINEY LORENZ DO Jul 12, 2018 06:59
[2018-07-12] MEDS ORDERED: NA BICARBONATE 8.4% 50 ML SYG ONE ×2 (07:00)
[2018-07-12] MEDS ORDERED: ATROPINE 1 MG/10 ML SYRINGE ONE ×2 (07:00)
[2018-07-12] MEDS ORDERED: VECURONIUM 10 MG VIAL ONE (07:00)
[2018-07-12] MEDS ORDERED: ETOMIDATE 20 MG INJ ONE (07:00)
[2018-07-12] MEDS ORDERED: SUCCINYLCHOLINE CHLORIDE 100 MG/5 ML SYG IV ONE (07:00)
[2018-07-12] MEDS ORDERED: EPINEPHrine 0.1 MG/ML SYG ONE ×2 (07:00)
[2018-07-12] MEDS ORDERED: NORepinephrine 8MG/250 ML BAG ONE (07:00)
--- NOTE | 2018-07-12 07:31 | NUR ---
Called Pt's family/sister @ [phone]; spoke to Namita Peter, RE: Pt's critical condition. Pulmonary/Cardiac arrest event and placed on the Ventilator. will follow up post resuscitation order
[2018-07-12] MEDS ORDERED: PHENYLephrine 20MG IN 250 ML 250 ML ONE ×2 (07:32→08:30)
[2018-07-12] MEDS ORDERED: SODIUM BICARBONATE (IV ADD) 100 MEQ in DEXTROSE 5% 900 ML IV SCH (08:00)
[2018-07-12] MEDS ORDERED: EPINEPHrine 4 MG in DEXTROSE 5% 246 ML IV SCH (08:00)
[2018-07-12] MEDS ORDERED: DOPamine-D5W 1.6 MG/ML 250 ML IV SCH (08:00)
--- NOTE | 2018-07-12 08:14 | EN ---
Date/Time of Note Date/Time of Note DATE: 07/12/18 TIME: 08:12 ER Progress Note CODE BLUE CODE BLUE was called on this patient who is here for syncope with altered mental status. I seen the patient about 10-15 minutes prior for the same. Patient went asystole again and went into PEA then received epinephrine and 1 amp of bicarb x 2 and his pulse returned. The nurse has ordered a bicarb drip. Patient has blood pressure 105/64 with heart rate of 122 A. LAINEY Sesay DO Jul 12, 2018 08:14
--- NOTE | 2018-07-12 08:17 | EN ---
Date/Time of Note Date/Time of Note DATE: 07/12/18 TIME: 08:14 ER Progress Note CODE BLUE HARI RUSSO was called on this patient who is here for syncope with altered mental status. He is currently on pressor support. His sister wants him full code I seen the patient about 5-10 minutes prior for the same. Patient went into PEA then received epinephrine and 1 amp of bicarb and his pulse returned. The nurse has ordered a bicarb drip, which is just arrived once his pulse returned Gave him an additional amp of bicarb when his pulse and blood pressure returned Const: Well-developed, well-nourished Head: Atraumatic, normocephalic Eyes: Normal Conjunctiva, PERRLA, EOMI, normal sclera, no nystagmus ENT: [Normal External Ears, intubated Neck: Full range of motion. No meningismus Resp: Clear to auscultation bilaterally, no wheezing, rhonchi, rales Cardio: Tachycardia irregular rate and rhythm, S1 S2 present Abd: [Soft, non distended. Skin: No petechiae or rashes, no ecchymosis , no maculopapular rash Back: Not examined Ext: No cyanosis, or edema, FROM x 4, normal inspection, neurovascularly intact x 4 Neur: GCS of 3 Psych: Unable to obtain LAINEY LORENZ DO Jul 12, 2018 08:17
[2018-07-12] MEDS ORDERED: PHENYLephrine 20MG IN 250 ML 250 ML IV SCH (08:30)
[2018-07-12] MEDS ORDERED: NORepinephrine 8MG/250 ML (PMX 250 ML IV SCH (08:30)
[2018-07-12] MEDS ORDERED: OCULAR LUBRICANT 3.5 GM OPH OINT BOTH EYES SCH (08:30)
--- NOTE | 2018-07-12 08:49 | NUR ---
Pt received while in second cariac arrest. Total of 3 Code Blue for PEA arrest. Pt is currently intubated with 7.5 ETT, 24@ lip, AC 12 TV 500 100% FiO2 +5 PEEP. Lungs clear. Christiane Hugger in place. Pt is currently on Bicarb drip, Levophed, Amol-Synephrine, Dopamine & Epinephrine: all max doses. BP currently 95/77. Dr. Vazquez at bedside aware of events. Family aware of critical condition.
[2018-07-12] MEDS: TIOTROPIUM 18 MCG CAPSULE INHA DEV INH SCH (09:00)
[2018-07-12] MEDS: FLUTICASONE/VILANTEROL 100-25 INH SCH (09:00)
[2018-07-12] MEDS ORDERED: ARTIFICIAL TEARS 15 ML OPH BOTH EYES SCH (09:00)
[2018-07-12] MEDS: ASPIRIN (EC) 81 MG TAB PO SCH (09:00)
[2018-07-12] MEDS ORDERED: PHENYLephrine 80 MG in DEXTROSE 5% 242 ML IV SCH (09:00)
[2018-07-12] MEDS ORDERED: NA BICARBONATE 8.4% 50 ML SYG IV STA (09:23)
[2018-07-12] MEDS ORDERED: LORAZEPAM 2 MG INJ ONE (09:23)
[2018-07-12] MEDS ORDERED: LORAZEPAM 2 MG INJ IV PRN (09:30)
--- NOTE | 2018-07-12 09:31 | CONS ---
Assessment/Plan Assessment/Plan Hospital Course (Demo Recall) 1) Fall versus syncope 2) chronic afib - s/p RVR and last night bradycardia 3) LV dysfunction 4) no gross fluid overload 5) no ischemia in recent stress test 6) HTN > hypotension yesterday 7) s/p hypoglycemia now s/p cardiac arrest with severe deterioration in status conitnue supportive care Consultation Date/Type/Reason Admit Date/Time Jul 10, 2018 at 13:18 Initial Consult Date 07/11/18 Type of Consult Cardiology Requesting Provider: AMMON CASTILLO MD Date/Time of Note DATE: 07/12/18 TIME: 09:29 24 HR Interval Summary Free Text/Dictation PEA arrest overnight now on maximum of four pressors very limited response tonic clonic movements Subjective hx not possible: pt non-verbal Exam/Review of Systems Vital Signs Vitals Vital Signs Date Temp Pulse Resp B/P (MAP) Pulse Ox O2 O2 Flow FiO2 Time Delivery Rate 07/12/18 50 09:00 07/12/18 116 13 105/76 08:01 (86) 07/12/18 100 06:10 07/12/18 97.8 High Flow 04:01 07/11/18 8.0 23:00 Intake and Output 07/11/18 07/11/18 07/12/18 1414:59 22:59 06:59 IntakeIntake Total 920 ml 1100 ml 800 ml OutputOutput Total 50 ml BalanceBalance 920 ml 1100 ml 750 ml Exam Neurological: unresponsive Labs Result Diagram: 07/12/18 0430 07/12/18 0710 Results 24hrs Laboratory Tests Test 07/11/18 12:23 07/11/18 16:38 07/11/18 16:40 07/11/18 21:15 Bedside Glucose 188 88 79 Hemoglobin 12.6 L Hematocrit 38.8 L Prothrombin Time 39.0 #H Prothrombin Time 3.0 Ratio INR 4.01 International Normalized Ratio Activated 35.8 H Partial Thrombop last Time Test 07/11/18 23:26 07/12/18 01:11 07/12/18 01:27 07/12/18 04:30 Random Cortisol 67.4 Bedside Glucose > 595 *H 105 White Blood 9.8 Count Red Blood Count 3.99 L Hemoglobin 12.6 L Hematocrit 38.8 L Mean Corpuscular 97.2 Volume Mean Corpuscular 31.6 Hemoglobin Mean Corpuscular 32.5 Hemoglobin Cyndy nt Red Cell 17.4 H Distribution Width Platelet Count 100 L Mean Platelet 12.4 H Volume Immature 1.300 H Granulocytes % Neutrophils % 74.2 Lymphocytes % 18.3 Monocytes % 6.0 Eosinophils % 0.0 Basophils % 0.2 Nucleated Red 13.9 H Blood Cells % Immature 0.130 H Granulocytes # Neutrophils # 7.3 Lymphocytes # 1.8 Monocytes # 0.6 Eosinophils # 0.0 Basophils # 0.0 Nucleated Red 1.4 H Blood Cells # Sodium Level 142 Potassium Level 4.8 Chloride Level 106 Carbon Dioxide 20 L Level Anion Gap 16 H Blood Urea 73 H Nitrogen Creatinine 1.71 H Est Glomerular Filtrat Rate mL/min Glucose Level 111 Calcium Level 8.5 Test 07/12/18 04:52 07/12/18 05:00 07/12/18 07:10 07/12/18 08:00 Bedside Glucose 113 Blood Gas Blood arterial Blood arterial Specimen Source Arterial Blood 07/12/2018 5:45: 07/12/2018 8:28: Date Drawn 38 AM 51 AM Arterial Blood 7.438 7.102 *L pH (Temp corrected) Arterial Blood 13.5 L 46.7 H pCO2 (Temp correct) Arterial Blood 76.9 L 312.7 H pO2 (Temp corrected) Arterial Blood 8.9 *L 14.2 L HCO3 Arterial Blood -12.0 L -14.9 L Base Excess Arterial Blood 94.8 L 99.1 Oxygen Saturatio n Pranav Test ACCEPTAB ACCEPTAB Arterial Blood Left Radial Right Radial Gas Puncture Site Arterial 0.1 0.3 Blood Carboxyhem oglobin Arterial Blood 0.2 0.4 Methemoglobin Blood Gas A-a O2 157.0 H 353.6 H Differential Oxyhemoglobin 94.5 98.4 Percent Blood Gas 37.0 37.0 Temperature Blood Gas Actual 29 18 Respiration Rate Blood Gas HFNC VENT - AC Modality FiO2 35.0 100.0 Blood Gas IRON WILBURN RN Critical Value Read Back Blood Gas ASHWIN LIMA Notified Whom Blood Gas 07/12/2018 5:54: 07/12/2018 8:55: Notified Time 23 AM 30 AM Sodium Level 140 Potassium Level 5.0 Chloride Level 101 Carbon Dioxide 16 L Level Anion Gap 23 #H Blood Urea 65 H Nitrogen Creatinine 1.80 H Est Glomerular Filtrat Rate mL/min Glucose Level 455 #*H Calcium Level 7.5 L Troponin I 0.189 *H Blood Gas 12.0 Respiration Rate Blood Gas Tidal 500.0 Volume Blood Gas Low 5.0 PEEP Setting Test 07/12/18 08:43 Bedside Glucose 110 Medications Medications Current Medications IV Flush (NS 3 ml) 3 ml PER PROTOCOL IV ; Start 07/08/18 at 22:30 Ondansetron HCl (Zofran Tab) 4 mg Q6H PRN PO nausea; Start 07/08/18 at 22:30 Acetaminophen (Tylenol Tab) 650 mg Q6H PRN PO fever Last administered on 07/09/18at 14:52; Admin Dose 650 MG; Start 07/08/18 at 22:30 Docusate Sodium (Colace) 100 mg Q12H PRN PO CONSTIPATION; Start 07/08/18 at 22:30 Magnesium Hydroxide (Milk Of Mag) 30 ml DAILY PRN PO indigestion; Start 9 at 22:30 Famotidine (Pepcid) 20 mg Q24H PO Last administered on 07/11/18at 22:14; Admin Dose 20 MG; Start 07/08/18 at 23:00 Aspirin (Halfprin) 81 mg DAILY PO Last administered on 07/11/18 08:35; Admin Dose 81 MG; Start 07/09/18 at 09:00 Fluticasone/ Vilanterol (Breo Ellipta 100-25 Mcg Inh) 1 inh DAILY INH Last administered on 07/10/18 08:19; Admin Dose 1 INH; Start 07/09/18 at 09:00 Metoprolol Succinate (Toprol Xl) 200 mg BID PO Last administered on 07/11/18 08:35; Admin Dose 200 MG; Start 07/08/18 at 23:00; Status Hold Tiotropium [place] (Spiriva) 1 inh DAILY INH Last administered on 07/09/18 13:44; Admin Dose 1 INH; Start 07/09/18 at 09:00 Digoxin (Digoxin) 0.125 mg DAILY@13 PO Last administered on 07/09/18 13:42; Admin Dose 0.125 MG; Start 07/09/18 at 13:00; Status Hold Dextrose 1,000 ml @ 100 mls/hr Q10H IV Last administered on 1/27/19at 04:13; Admin Dose 100 MLS/HR; Start 07/10/18 at 10:30 Miscellaneous Information 1 ea NOTE XX ; Start 07/10/18 at 20:30 Glucose (Glutose) 15 gm Q15M PRN PO DECREASED GLUCOSE; Start 07/10/18 at 20:30 Glucose (Glutose) 22.5 gm Q15M PRN PO DECREASED GLUCOSE; Start 07/10/18 at 20:30 Dextrose (D50w Syringe) 25 ml Q15M PRN IV DECREASED GLUCOSE; Start 07/10/18 at 20:30 Dextrose (D50w Syringe) 50 ml Q15M PRN IV DECREASED GLUCOSE; Start 07/10/18 at 20:30 Glucagon (Glucagen) 1 mg Q15M PRN IM DECREASED GLUCOSE; Start 07/10/18 at 20:30 Glucose (Glutose) 15 gm Q15M PRN BUCCAL DECREASED GLUCOSE; Start 07/10/18 at 20:30 Metoprolol Tartrate (Lopressor) 5 mg Q6 IV Last administered on 07/11/18at 06:34; Admin Dose 5 MG; Start 07/11/18 at 00:00; Status Hold Diagnostic Test (Pha) (Accu-Chek) 1 ea Q4 XX Last administered on 07/12/18at 04:54; Admin Dose 1 EA; Start 07/11/18 at 09:00 Sodium Bicarbonate 100 meq/Dextrose 1,000 ml @ 100 mls/hr Q10H IV Last administered on 07/12/18at 08:24; Admin Dose 100 MLS/HR; Start 07/12/18 at 08:00 Epinephrine 4 mg/ Dextrose 250 ml @ 3.75 mls/hr TITRATE IV Last administered on 07/12/18at 08:25; Admin Dose 37.5 MLS/HR; Start 07/12/18 at 08:00 Dopamine HCl/ Dextrose 250 ml @ 4.5 mls/hr TITRATE IV Last administered on 07/12/18at 08:26; Admin Dose 45 MLS/HR; Start 07/12/18 at 08:00; Stop 07/12/18 at 10:00 Phenylephrine HCl 250 ml @ 75 mls/hr TITRATE IV Last administered on 07/12/18at 07:45; Admin Dose 225 MLS/HR; Start 07/12/18 at 08:30; Stop 07/12/18 at 10:00 Norepinephrine 250 ml @ 1.875 mls/ hr TITRATE IV Last administered on 07/12/18at 08:40; Admin Dose 56.25 MLS/HR; Start 07/12/18 at 08:30; Stop 07/12/18 at 10:00 Eye Lubricant (Akwa Oint) 1 applic Q6 BOTH EYES ; Start 07/12/18 at 08:30 Eye Lubricant (Artificial Tears Oph) 2 drop QID BOTH EYES ; Start 07/12/18 at 09:00 Norepinephrine 32 mg/Dextrose 250 ml @ 0.47 mls/hr TITRATE IV ; Start 07/12/18 at 10:00 Phenylephrine HCl 80 mg/Dextrose 250 ml @ 18.75 mls/ hr TITRATE IV ; Start 07/12/18 at 09:00 Dopamine HCl 1600 mg/Dextrose 250 ml @ 1.13 mls/hr TITRATE IV ; Start 07/12/18 at 10:00 Lorazepam (Ativan) 1 mg Q4H PRN IV SEIZURES; Start 07/12/18 at 09:30; Status EDDIE HUI MD Jul 12, 2018 09:31
--- NOTE | 2018-07-12 09:40 | NUR ---
Pt began opening eyes extremely wide rhythmically. No other s/s of movement from patient, even with noxious stimuli. Dr. Vazquez at beside aware. ordered Ativan 1mg IVP Q4h prn. Ativan given with good results. Rhythmic eye movements stopped
[2018-07-12] MEDS ORDERED: DOPamine 1,600 MG in DEXTROSE 5% 210 ML IV SCH (10:00)
[2018-07-12] MEDS ORDERED: NORepinephrine 32 MG in DEXTROSE 5% 218 ML IV SCH (10:00)
--- NOTE | 2018-07-12 10:13 | CONS ---
Assessment/Plan Assessment/Plan Assessment/Plan (Daily) Chest x-ray showing minimal cardiomegaly without any acute infiltrates. Ventilator setting; AC of 12, tidal volume 500, PEEP of 5, 60% FiO2. Patient is on phenylephrine drip 300 mics per minute, Levophed 10 mics per minute, dopamine 50 mics per kilogram per minute, Assessment recommendations; 1. Patient initially admitted for DKA with metabolic acidosis as well as acute on chronic renal insufficiency there was marked overall clinical improvement however patient had sudden decompensation and required CPR x3. 2. Severe metabolic acidosis. 3. History of diabetes. 4. History of baseline renal insufficiency. 5. Severe encephalopathy. Likely related to cardiac arrest. 6. History of hypertension. Administration of sodium bicarbonate. Continue sodium bicarbonate drip. Obtain ABG in 2 hours. Further recommendations once ABG is performed. Prognosis appears poor. 35 minutes of critical care time was spent evaluating the patient. Consultation Date/Type/Reason Admit Date/Time Jul 10, 2018 at 13:18 Initial Consult Date Type of Consult Pulmonary/critical care Requesting Provider: AMMON CASTILLO MD Date/Time of Note DATE: 07/12/18 TIME: 10:09 24 HR Interval Summary Free Text/Dictation Patient's condition has taken a turn for the worse. Patient had cardiac arrest required CPR 3 times. The patient is now orally intubated. Remains severely hypotensive on multiple pressor agents. General exam; elderly male, emaciated, orally intubated, unresponsive. Currently no distress. Exam/Review of Systems Exam Vitals Vital Signs Date Temp Pulse Resp B/P (MAP) Pulse Ox O2 O2 Flow FiO2 Time Delivery Rate 07/12/18 50 09:00 07/12/18 116 13 105/76 08:01 (86) 07/12/18 100 06:10 07/12/18 97.8 High Flow 04:01 07/11/18 8.0 23:00 Intake and Output 07/11/18 07/11/18 07/12/18 1515:00 23:00 07:00 IntakeIntake Total 920 ml 1100 ml 700 ml OutputOutput Total 50 ml BalanceBalance 920 ml 1100 ml 650 ml Exam HEENT exam; supple neck, no JVD. No lymphadenopathy. Midline trachea. No thyromegaly. Orally intubated. Patient is edentulous. Pupils are midsize and very sluggish to react. Chest exam; diminished but clear breath sounds. S1-S2 audible, no murmurs. Regular rhythm. Abdomen exam; soft, scaphoid. No organomegaly. Bowel sounds are absent. Extremity exam; no peripheral edema. RESOURCE MANAGEMENT SPECIALIST exam; patient is unresponsive. Results Result Diagram: 07/12/18 0430 07/12/18 0710 Results 24hrs Laboratory Tests Test 07/11/18 12:23 07/11/18 16:38 07/11/18 16:40 07/11/18 21:15 Bedside Glucose 188 88 79 Hemoglobin 12.6 L Hematocrit 38.8 L Prothrombin Time 39.0 #H Prothrombin Time 3.0 Ratio INR 4.01 International Normalized Ratio Activated 35.8 H Partial Thrombop last Time Test 07/11/18 23:26 07/12/18 01:11 07/12/18 01:27 07/12/18 04:30 Random Cortisol 67.4 Bedside Glucose > 595 *H 105 White Blood 9.8 Count Red Blood Count 3.99 L Hemoglobin 12.6 L Hematocrit 38.8 L Mean Corpuscular 97.2 Volume Mean Corpuscular 31.6 Hemoglobin Mean Corpuscular 32.5 Hemoglobin Cyndy nt Red Cell 17.4 H Distribution Width Platelet Count 100 L Mean Platelet 12.4 H Volume Immature 1.300 H Granulocytes % Neutrophils % 74.2 Lymphocytes % 18.3 Monocytes % 6.0 Eosinophils % 0.0 Basophils % 0.2 Nucleated Red 13.9 H Blood Cells % Immature 0.130 H Granulocytes # Neutrophils # 7.3 Lymphocytes # 1.8 Monocytes # 0.6 Eosinophils # 0.0 Basophils # 0.0 Nucleated Red 1.4 H Blood Cells # Sodium Level 142 Potassium Level 4.8 Chloride Level 106 Carbon Dioxide 20 L Level Anion Gap 16 H Blood Urea 73 H Nitrogen Creatinine 1.71 H Est Glomerular Filtrat Rate mL/min Glucose Level 111 Calcium Level 8.5 Test 07/12/18 04:52 07/12/18 05:00 07/12/18 07:10 07/12/18 08:00 Bedside Glucose 113 Blood Gas Blood arterial Blood arterial Specimen Source Arterial Blood 07/12/2018 5:45: 07/12/2018 8:28: Date Drawn 38 AM 51 AM Arterial Blood 7.438 7.102 *L pH (Temp corrected) Arterial Blood 13.5 L 46.7 H pCO2 (Temp correct) Arterial Blood 76.9 L 312.7 H pO2 (Temp corrected) Arterial Blood 8.9 *L 14.2 L HCO3 Arterial Blood -12.0 L -14.9 L Base Excess Arterial Blood 94.8 L 99.1 Oxygen Saturatio n Pranav Test ACCEPTAB ACCEPTAB Arterial Blood Left Radial Right Radial Gas Puncture Site Arterial 0.1 0.3 Blood Carboxyhem oglobin Arterial Blood 0.2 0.4 Methemoglobin Blood Gas A-a O2 157.0 H 353.6 H Differential Oxyhemoglobin 94.5 98.4 Percent Blood Gas 37.0 37.0 Temperature Blood Gas Actual 29 18 Respiration Rate Blood Gas HFNC VENT - AC Modality FiO2 35.0 100.0 Blood Gas IRON ARMSTRONG L AKILA ARMSTRONG Critical Value Read Back Blood Gas ASHWIN DT Notified Whom Blood Gas 07/12/2018 5:54: 07/12/2018 8:55: Notified Time 23 AM 30 AM Sodium Level 140 Potassium Level 5.0 Chloride Level 101 Carbon Dioxide 16 L Level Anion Gap 23 #H Blood Urea 65 H Nitrogen Creatinine 1.80 H Est Glomerular Filtrat Rate mL/min Glucose Level 455 #*H Calcium Level 7.5 L Troponin I 0.189 *H Blood Gas 12.0 Respiration Rate Blood Gas Tidal 500.0 Volume Blood Gas Low 5.0 PEEP Setting Test 07/12/18 08:43 Bedside Glucose 110 Medications Medication Current Medications IV Flush (NS 3 ml) 3 ml PER PROTOCOL IV ; Start 07/08/18 at 22:30 Ondansetron HCl (Zofran Tab) 4 mg Q6H PRN PO nausea; Start 07/08/18 at 22:30 Acetaminophen (Tylenol Tab) 650 mg Q6H PRN PO fever Last administered on 07/09/18at 14:52; Admin Dose 650 MG; Start 07/08/18 at 22:30 Docusate Sodium (Colace) 100 mg Q12H PRN PO CONSTIPATION; Start 07/08/18 at 22:30 Magnesium Hydroxide (Milk Of Mag) 30 ml DAILY PRN PO indigestion; Start 07/08/18 at 22:30 Famotidine (Pepcid) 20 mg Q24H PO Last administered on 07/11/18at 22:14; Admin Dose 20 MG; Start 07/08/18 at 23:00 Aspirin (Halfprin) 81 mg DAILY PO Last administered on 07/11/18at 08:35; Admin Dose 81 MG; Start 07/09/18 at 09:00 Fluticasone/ Vilanterol (Breo Ellipta 100-25 Mcg Inh) 1 inh DAILY INH Last administered on 07/10/18at 08:19; Admin Dose 1 INH; Start 07/09/18 at 09:00 Metoprolol Succinate (Toprol Xl) 200 mg BID PO Last administered on 07/11/18at 08:35; Admin Dose 200 MG; Start 07/08/18 at 23:00; Status Hold Tiotropium [place] (Spiriva) 1 inh DAILY INH Last administered on 07/09/18at 13:44; Admin Dose 1 INH; Start 07/09/18 at 09:00 Digoxin (Digoxin) 0.125 mg DAILY@13 PO Last administered on 07/09/18at 13:42; Admin Dose 0.125 MG; Start 07/09/18 at 13:00; Status Hold Dextrose 1,000 ml @ 100 mls/hr Q10H IV Last administered on 07/12/18at 04:13; Admin Dose 100 MLS/HR; Start 07/10/18 at 10:30 Miscellaneous Information 1 ea NOTE XX ; Start 07/10/18 at 20:30 Glucose (Glutose) 15 gm Q15M PRN PO DECREASED GLUCOSE; Start 07/10/18 at 20:30 Glucose (Glutose) 22.5 gm Q15M PRN PO DECREASED GLUCOSE; Start 07/10/18 at 20:3 0 Dextrose (D50w Syringe) 25 ml Q15M PRN IV DECREASED GLUCOSE; Start 07/10/18 at 20:30 Dextrose (D50w Syringe) 50 ml Q15M PRN IV DECREASED GLUCOSE; Start 07/10/18 at 20:30 Glucagon (Glucagen) 1 mg Q15M PRN IM DECREASED GLUCOSE; Start 07/10/18 at 20:30 Glucose (Glutose) 15 gm Q15M PRN BUCCAL DECREASED GLUCOSE; Start 07/10/18 at 20:30 Metoprolol Tartrate (Lopressor) 5 mg Q6 IV Last administered on 07/11/18at 06:34; Admin Dose 5 MG; Start 07/11/18 at 00:00; Status Hold Diagnostic Test (Pha) (Accu-Chek) 1 ea Q4 XX Last administered on 07/12/18 09:30; Admin Dose 1 EA; Start 07/11/18 at 09:00 Sodium Bicarbonate 100 meq/Dextrose 1,000 ml @ 100 mls/hr Q10H IV Last administered on 07/12/18 08:24; Admin Dose 100 MLS/HR; Start 07/12/18 at 08:00 Epinephrine 4 mg/ Dextrose 250 ml @ 3.75 mls/hr TITRATE IV Last administered on 07/12/18 08:25; Admin Dose 37.5 MLS/HR; Start 07/12/18 at 08:00 Eye Lubricant (Akwa Oint) 1 applic Q6 BOTH EYES Last administered on 07/12/18 09:46; Admin Dose 1 APPLIC; Start 07/12/18 at 08:30 Eye Lubricant (Artificial Tears Oph) 2 drop QID BOTH EYES Last administered on 07/12/18 09:46; Admin Dose 2 DROP; Start 07/12/18 at 09:00 Norepinephrine 32 mg/Dextrose 250 ml @ 0.47 mls/hr TITRATE IV Last administered on 07/12/18 09:47; Admin Dose 14.06 MLS/HR; Start 07/12/18 at 10:00 Phenylephrine HCl 80 mg/Dextrose 250 ml @ 18.75 mls/ hr TITRATE IV Last ad ministered on 07/12/18 09:48; Admin Dose 56.25 MLS/HR; Start 07/12/18 at 09:00 Dopamine HCl 1600 mg/Dextrose 250 ml @ 1.13 mls/hr TITRATE IV Last administered on 07/12/18 09:50; Admin Dose 11.25 MLS/HR; Start 07/12/18 at 10:00 Lorazepam (Ativan) 1 mg Q4H PRN IV SEIZURES Last administered on 07/12/18 09:45; Admin Dose 1 MG; Start 07/12/18 at 09:30 ALENA SIMON Jul 12, 2018 10:13
--- NOTE | 2018-07-12 10:31 | NUR ---
BETY Note: Follow up SW requested follow up with patient as patient has expressed concern about obtaining his car keys from the [facility] where patient was picked up by ambulance. SW met with bedside RN and patient on the unit. Patient is intubated and coded 3 times this morning per RN. The patients sister, Namita ([phone]) is aware of the patients critical status and is en route to [facility] from [place] with an ETA of 3 hours. Given patients critical status, locating his car keys is not pertinent at this time. Patients family/sister can assist with locating the patients [place]ares on arrival. Previous SWers have reached out to the [facility] where the patient was picked up and management has not had any keys returned.
--- NOTE | 2018-07-12 14:01 | NUR ---
CODE BLUE NOTE: pt coded at 11:46 while pt's family was in the room visiting. Pt was able to achieve ROSC at 11:58. Pt's family decided to leave, but said for us to call if anything further happened. Pt coded again at 12:26(see code blue record). [facility] called at 12:54. RN called & left a message with Namita (pt's sister). Awaiting a call back. All physicians on pt's case notified of pt's .
--- NOTE | 2018-07-12 14:06 | NUR ---
[facility] notified. DN# [id number]
--- NOTE | 2018-07-12 14:39 | EN ---
Date/Time of Note Date/Time of Note DATE: 07/12/18 TIME: 14:31 ER Progress Note CODE BLUE The patient is coding again. The patient start tends to bradycardia down to the 60s then will lose his pulse and go into PEA. I did discuss with the family about further CPR and they are not sure what to do they want to try to give a 24 hours to see if he would survive or not. They said he wanted to discuss with family members on whether or not to make him a DNR. My arrival the patient is having active CPR has had epi and bicarb he is maxed out on all pressors Const: [Well-developed, well-nourished] Head: [Atraumatic, normocephalic] Eyes: [Normal Conjunctiva, Lucie fixed and dilated but has had atropine] ENT: [Normal External Ears, intubated.] Neck: [Full range of motion. No meningismus, no lymphadenopathy.] Resp: [Clear to auscultation bilaterally, no wheezing, rhonchi, rales] Cardio: No spontaneous Abd: [Soft, n, non distended. Skin: [No petechiae or rashes, no ecchymosis , no maculopapular rash] Back: Not examined Ext: [No cyanosis, , normal inspection, Neur: GCS of 3 Psych: Able to obtain Patient underwent ACLS protocol and then he would get epinephrine and would become tachycardic briefly in A. fib with RVR that his pulse are gradually declining until he would lose his pulse; the epinephrine would wear off. We did multiple rounds of this until his heart went into PEA and finally was nonresponsive. He was deemed at that time that he is becoming drug depend on epinephrine I lasting a few minutes before losing pulse again. Patient was doing this for 30 minutes Patient's code was called and time of at 12:54 PM Critical Care Time: 40 minutes Treatments/Evaluations: Close monitoring and treatment of unstable vital signs, cardiorespiratory, and neurologic status, while maintaining tight balance of fluid, respiratory, and cardiac interventions. This time includes discussing the case with the patient and the patient's family. This time does not include all procedures stated elsewhere in this record. This time also includes reviewing old records, labs and radiological studies. This time includes examining and re- examining the patient. Additionally, this time also includes arranging care with admitting and consulting physicians. LAINEY LORENZ DO Jul 12, 2018 14:39
--- NOTE | 2018-07-13 06:32 | PN ---
DATE: 07/12/2018 PROGRESS NOTE SUBJECTIVE: Patient developed bradycardia followed by asystole about 6:30 in the morning. Vivian herrera was called and he was intubated. The patient received epinephrine. At this time, he is on maximum doses of 3 different pressors. Systolic blood pressure is about 79. PHYSICAL EXAMINATION VITAL SIGNS: He is afebrile. LUNGS: Bilateral rhonchi. HEART: Rapid rate. Irregularly irregular. ABDOMEN: Soft, normoactive bowel sounds. EXTREMITIES: No clubbing, cyanosis, or edema. ASSESSMENT AND PLAN: 1. A 73-year-old male status post cardiac arrest. 2. Metabolic acidosis. 3. Acute on chronic kidney injury. 4. Persistent hypoglycemia, rule out insulinoma. 5. Chronic atrial fibrillation. 6. Chronic obstructive pulmonary disease. 7. Poor prognosis. Continue full supportive care. Dr. Hairston was then notified. 8. The case was discussed with the patient's siblings. They understand his poor prognosis. 8. Pulmonary, endocrine and cardiology followup. Dictated By: AMMON MORALES/CLINTON Conf#: [id number] DID#: [id number] CC: DARSHANA LAKHANI MD; MARIA C BAZZI MD;*EndCC*
--- NOTE | 2018-07-13 13:49 | RADRPT ---
Vent Rate: 52 bpm RR Interval: 0 msec SD Interval: 0 msec QRS Duration: 90 msec QT Interval: 526 msec QTC Interval: 489 msec P-R-T [place]: 0 - 1 - 0 degrees Atrial fibrillation with slow ventricular response with premature ventricular or aberrantly conducted complexes Baseline wander affecting accurate interpretation Electronically Signed By: Geoff Knight [id number]
--- NOTE | 2018-07-13 13:49 | RADRPT ---
Vent Rate: 41 bpm RR Interval: [address] Interval: 0 msec QRS Duration: 88 msec QT Interval: 562 msec QTC Interval: 463 msec P-R-T [place]: 0 - -14 - -87 degrees Probable Sinus rhythm Baseline wander affecting accurate interpretation Abnormal ECG Electronically Signed By: Geoff Knight [id number]
--- NOTE | 2018-07-13 13:51 | DES ---
DATE OF ADMISSION: 07/10/2018 DATE OF : 07/12/2018 DIAGNOSES PRIOR TO : 1. Multiple cardiac arrests. 2. Atherosclerotic heart disease. 3. Persistent hypoglycemia. 4. Metabolic acidosis. 5. Acute on chronic kidney injury. 6. Chronic atrial fibrillation. 7. Severe chronic obstructive pulmonary disease. HOSPITAL COURSE: A 73-year-old male with multiple medical problems including hypertension, chronic a trial fibrillation and end-stage COPD was readmitted after he had a ground level fall due to hypoglyc emia. The patient was noted to have persistent hypoglycemia despite D10 infusion. He was monitored in the ICU. The patient was seen by multiple specialists. He developed cardiac arrest and coded sev eral times. Family members were notified. The patient coded last at 12:26 p.m. on June 172018. TIME OF was 12:54 p.m. His sister was notified of the patient's demise. Dictated By: AMMON CASTILLO MD SK/NTS Conf#: [id number] DID#: [id number] CC: MARIA C BAZZI MD;*EndCC*
--- NOTE | 2018-07-13 13:53 | RADRPT ---
Vent Rate: 113 bpm RR Interval: 0 msec [place] Interval: 160 msec QRS Duration: 90 msec QT Interval: 346 msec QTC Interval: 474 msec P-R-T [place]: 82 - -58 - 87 degrees Sinus tachycardia Left axis deviation RSR apos; orattern in V1 suggests right ventricular conduction delay Septal infarct , age undetermined ST amp; T wave abnormality, consider anterolateral ischemia Abnormal ECG Electronically Signed By: Geoff Knight [id number]
== END 2018-07-12 12:54 | disposition expired | DRG 682 ==
LOC: E/R 12:44 → 6WM 18:29 → ICU 07-10 10:32 → OBSVTOIN 07-10 13:18
PROVIDERS: ADMIT Internal Medicine; ATTEND Internal Medicine
PROC: 02HV33Z Insertion of Infusion Device into Superior Vena Cava, Percutaneous Approach (ICD-10-PCS; 2018-07-11)
PROC: B548ZZA Ultrasonography of Superior Vena Cava, Guidance (ICD-10-PCS; 2018-07-11)
PROC: 0BH17EZ Insertion of Endotracheal Airway into Trachea, Via Natural or Artificial Opening (ICD-10-PCS; principal; 2018-07-12)
PROC: 5A1935Z Respiratory Ventilation, Less than 24 Consecutive Hours (ICD-10-PCS; 2018-07-12)
DX: N17.9 Acute kidney failure, unspecified (principal); E11.10 Type 2 diabetes mellitus with ketoacidosis without coma; Z68.1 Body mass index [BMI] 19.9 or less, adult; E87.2 Acidosis; G93.40 Encephalopathy, unspecified; E16.2 Hypoglycemia, unspecified; E87.5 Hyperkalemia; I48.2 Chronic atrial fibrillation; E11.22 Type 2 diabetes mellitus with diabetic chronic kidney disease; E86.0 Dehydration; F17.210 Nicotine dependence, cigarettes, uncomplicated; J44.9 Chronic obstructive pulmonary disease, unspecified; R62.7 Adult failure to thrive; I25.10 Atherosclerotic heart disease of native coronary artery without angina pectoris; I12.9 Hypertensive chronic kidney disease with stage 1 through stage 4 chronic kidney disease, or unspecified chronic kidney disease; N18.9 Chronic kidney disease, unspecified; E07.81 Sick-euthyroid syndrome; Z79.01 Long term (current) use of anticoagulants; Z79.4 Long term (current) use of insulin; Z79.82 Long term (current) use of aspirin; I46.9 Cardiac arrest, cause unspecified
CPT/HCPCS: 31500; 36569; 36600; 71045; 76937; 80048; 82533; 82803; 82962; 83036; 83525; 83735; 84153; 84154; 84443; 84484; 85014; 85018; 85025; 85610; 85730; 87081; 87086; 92950; 93005; 93880; 94002; 96374; 99217; G0378; J0171; J0461; J1265; J1815; J2060; J2370; J7040; J7042; J7070